=== PATIENT | female | born 1935 | race Caucasian/White ===

== ENCOUNTER 2022-09-03 10:06 | Inpatient (IN) | payer MEDICARE, SELFPAY ==
[2022-09-03] VITALS (9 sets, daily range): BP systolic 124–186; BP diastolic 53–86; PULSE 87–111; RESP 17–40; TEMP 36.2–37; O2SAT 94–97; BMI 21.9; BMI 24.0
--- NOTE | ~2022-09-03 | XR_ITS ---
EXAMINATION: XR CHEST CLINICAL INFORMATION: Difficulty breathing COMPARISON: None TECHNIQUE: Frontal view of the chest was obtained. FINDINGS: Heart size is normal. The trachea is deviated to the right by superior mediastinal mass - in the differential would be an enlarged substernal thyroid along with other causes. Small bilateral pleural effusions are seen. There is mild upper zone redistribution suggesting elevated left ventricular end-diastolic pressure is. Mild peribronchial thickening. Bibasilar atelectasis is present. XR/XR chest 1V IMPRESSION: 1. Question of mild pulmonary vascular congestion with upper zone redistribution and small bilateral pleural effusions 2. Bibasilar atelectasis. 3. Tracheal deviation to the right as described above.
--- NOTE | ~2022-09-03 | CT_ITS ---
EXAMINATION: CT ANGIOGRAM OF THE CHEST WITH AND WITHOUT CONTRAST (CT PULMONARY ANGIOGRAM FOR PE) CLINICAL INFORMATION: Reason for Exam sob COMPARISON: Chest radiograph earlier today TECHNIQUE: Prior to contrast administration, noncontrast localization images were obtained. Subsequently, multidetector volumetric imaging was performed from the thoracic inlet to below the diaphragms following the administration of 65 mL Omnipaque 350 intravenous contrast. No contrast reaction reported Sagittal, coronal, and MIP oblique sagittal reformatted images were obtained on the CT workstation, uploaded to PACS, and reviewed. This CT examination was performed using dose optimization techniques as appropriate, variously including the following: *Automated exposure control *Adjustment of mA and/or kV according to patient size (this includes techniques or standardized protocols for targeted exams where dose is matched to indication/reason for exam; i.e. extremities or head) *Use of iterative reconstruction technique Total exam dose-length product 192 mGy-cm FINDINGS: QUALITY OF STUDY/CONTRAST BOLUS: Satisfactory. PULMONARY ARTERIES: No central or segmental pulmonary emboli. THORACIC AORTA: No aneurysm or dissection. LUNGS AND PLEURA: There are moderate-sized pleural effusions seen bilaterally which appear larger on CT than on ultrasound. There is bibasilar compressive atelectasis seen. Mild dependent groundglass opacities seen in the left lung. No focal consolidations. No gross pulmonary edema. MEDIASTINUM: There is mild cardiac enlargement. There is a large superior mediastinal mass present that has calcifications consistent with substernal extension of a thyroid goiter down to the level of the aortic arch. Correlation with neck ultrasound is recommended as the entire process is not included on this exam. The trachea is deviated to the right by this mass. No evidence of septal bowing or right heart strain. CORONARY ARTERY CALCIFICATION: None visualized on this study. CHEST WALL/AXILLA: No axillary or internal mammary lymphadenopathy. OSSEOUS STRUCTURES: No acute or suspicious osseous abnormality. UPPER ABDOMEN: Unremarkable. No reflux of contrast into the hepatic veins to suggest elevated right heart pressures. CT/CT angio chest PE protocol IMPRESSION: 1. No evidence of pulmonary emboli. 2. Moderate-sized bilateral pleural effusions with associated compressive atelectasis. 3. 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 Thyroid ultrasound is recommended for further evaluation. VTE: negative.
--- NOTE | ~2022-09-03 | XR_ITS ---
EXAMINATION: XR CHEST CLINICAL INFORMATION: Status post right-sided thoracentesis with removal of 550 mL of fluid from the right chest COMPARISON: Chest radiograph 09/03/2022 TECHNIQUE: Frontal view of the chest was obtained. FINDINGS: There has been a decrease in size of the right pleural effusion status post thoracentesis. No pneumothorax is seen. A small left pleural effusion persists. Otherwise, there's been no change since the prior study. Again seen is the superior mediastinal mass deviating the trachea to the right. XR/XR chest 1V IMPRESSION: Decrease in size of right pleural effusion status post thoracentesis. No pneumothorax.
--- NOTE | ~2022-09-03 | US_ITS ---
EXAMINATION: ULTRASOUND-GUIDED RIGHT THORACENTESIS CLINICAL INFORMATION: Right pleural effusion with dyspnea. COMPARISON: CT scan of 09/03/2022. TECHNIQUE: Ultrasound-guided right thoracentesis. FINDINGS: Informed consent was obtained from the patient prior to the procedure. During this process, the procedure and potential alternatives were explained, along with the intended outcome and benefits. The risks of the procedure, as well as the risk of not doing the procedure, were discussed. The patient was given the opportunity to ask questions regarding the procedure and appeared competent to make medical decisions. A signed consent form which documents this discussion was placed in the medical record. Using sterile technique and ultrasound guidance a 5 Polish Yueh needle was directed into the right pleural space. A total of 550 mL of clear yellow fluid was removed. Samples were sent for laboratory studies. There was a small amount of residual fluid which appears to be complex and would not drain. Patient tolerated procedure without difficulty. US/US thoracentesis IMPRESSION: Right thoracentesis with removal of 550 mL of clear yellow fluid.
--- NOTE | 2022-09-03 10:22 | ECG_ITS ---
Test Reason : sob Blood Pressure : / mmHG Vent. Rate : 104 BPM Atrial Rate : 104 BPM P-R Int : 140 ms QRS Dur : 140 ms QT Int : 392 ms P-R-T Axes : 065 014 123 degrees QTc Int : 515 ms Sinus tachycardia with Premature atrial complexes Possible Left atrial enlargement Left bundle branch block Abnormal ECG When compared with ECG of 02-APR-2012 15:37, Premature atrial complexes are now Present Referred By: Generic ED Physician Electronically Signed By:JITENDRA DAVIS
[2022-09-03 11:22] LABS: MANUAL DIFF FLAG NO
[2022-09-03 11:39] LABS: Anion Gap 13 (12-20); Blood Urea Nitrogen 23 mg/dL (9-16); Calcium 8.8 mg/dL (8.4-10.2); Carbon Dioxide 22 mmol/L (22-29); Chloride 112 mmol/L (96-108); Creatinine Clr Calc Pharmacy 36.8; Estimated Glomerular Filt Rate > 60; Glucose Random 137 mg/dL (60-115); Potassium 3.9 mmol/L (3.3-5.1); Sodium 143 mmol/L (135-145)
[2022-09-03 11:45] LABS: Basophils Absolute Auto 0.1 X10*3/uL (0.0-0.2); Basophils Percent Auto 0.7 % (0-2); Eosinophils Percent Auto 0.1 % (0-4); Hematocrit 47.1 % (37.0-47.0); Hemoglobin 15.6 g/dl (12.0-16.0); Imm Gran Abs Auto 0.05 X10*3/uL (0.00-0.03); Imm Gran Pct Auto 0.4 % (0.0-0.4); Lymphocytes Absolute Auto 1.6 X10*3/uL (1.2-4.9); Lymphocytes Percent Auto 12.9 % (20-40); Mean Corpuscular HGB Conc 33.1 g/dl (31.0-35.0); Mean Corpuscular Hemoglobin 29.7 pg (27.0-33.0); Mean Corpuscular Volume 89.5 fL (80.0-98.0); Mean Platelet Volume 11.6 fL (9.4-12.3); Monocytes Absolute Auto 1.1 X10*3/uL (0.1-1.2); Monocytes Percent Auto 9.4 % (2-11); Neutrophils Absolute Auto 9.2 x10*3/uL (2.0-8.3); Neutrophils Percent Auto 76.5 % (45-73); Platelet Count 184 X10*3/uL (160-400); Red Blood Count 5.26 X10*6/uL (4.20-5.50); Red Cell Distribution Width 13.9 % (11.0-16.0)
[2022-09-03 11:46] LABS: Lactic Acid 2.2 mmol/L (0.5-2.0)
[2022-09-03 11:48] LABS: Troponin-I High Sensitivity 46.9 ng/L (<3.5-17.0)
--- NOTE | 2022-09-03 11:55 | ED.SOB ---
HPI - SOB/Dyspnea General Chief Complaint: Dyspnea Stated Complaint: Diff breathing Time Seen by Provider: 09/03/22 11:33 History of Present Illness HPI Narrative: Patient is an 87-year-old female with a history of coughing shortness of breath that is been ongoing for the last 2 weeks. Was started on antibiotic azithromycin approximately 1 week ago. Patient finished on Thursday. Positive coughing shortness of breath. There is no leg swelling. No history of congestive heart failure. No history of travel. No history of heart attacks. No history of diabetes. Only history of hypertension. Patient has been compliant with her medication. No fever no chills. No diaphoresis. Patient is from home. Related Data Home Medications Medication Instructions Recorded Confirmed losartan 50 mg-hydrochlorothiazide 1 tab PO DAILY 09/03/22 09/03/22 12.5 mg tablet Allergies Allergy/AdvReac Type Severity Reaction Status Date / Time No Known Allergies Allergy Unverified 03/15/20 16:19 Review of Systems Review of Systems: Positive coughing congestion upper respiratory symptoms shortness of breath Yes all other systems are reviewed and are negative PMFSH Past Medical History Attestation statement: The following information was validated with the patient. Social History Social History Alcohol intake: never Smoked in Last 30 Days: No Use of substances other than those prescribed or required for medical reasons: No Any prior treatment program specific to substance use: No Advance Directives: No Advance Directives Information Provided: Yes Physical Exam Vital Signs: Vital Signs: Last Vital Signs Temp 97.2 F 09/03/22 10:18 Pulse 93 09/03/22 14:28 Resp 37 H 09/03/22 14:28 BP 154/81 H 09/03/22 14:28 Pulse Ox 96 09/03/22 14:28 O2 Del Method 09/03/22 14:28 BMI result Body Mass Index 21.9 Const: Other: Appearance: Alert. Oriented X3. Short of breath Eyes: Pupils equal, round and reactive to light. ENT: Pharynx normal. Neck: Normal inspection. Neck supple. No lymph nodes noted. No crepitus CVS: Normal heart rate and rhythm. Pulses normal. Normal S1 and S2 Respiratory: Increased work of breathing. Shallow breathing. Increased respiratory rate. Abdomen: Soft and nontender. No rigidity. No distention. good BS x4 Skin: Skin warm and dry. Normal skin color. Normal skin turgor. Extremities: No lower extremity edema. Neurovascular intact to all extremities. No Lacerations. No Rash Neuro: Oriented X 3. No motor deficit. No sensory deficit. Moving all extermities. No slurred speech Medications Administered Discontinued Medications Generic Name Dose Route Start Last Admin Trade Name Willisq PRN Reason Stop Dose Admin Furosemide 40 mg 09/03/22 12:34 09/03/22 12:44 Furosemide 40 Mg/4 Ml Vial IVPUSH 09/03/22 12:35 40 mg ONCE ONE Administration Protocol Ceftriaxone Sodium 1 gm/ 50 mls @ 100 mls/hr 09/03/22 11:55 09/03/22 12:39 Sodium Chloride IV 09/03/22 12:24 100 mls/hr ONCE ONE Administration Iohexol 65 ml 09/03/22 12:20 09/03/22 12:21 Iohexol 350 Mg/Ml 100 Ml Infus..Btl IV 09/03/22 12:21 65 ml ONCE ONE Administration Nitroglycerin 0.5 inch 09/03/22 14:19 09/03/22 14:26 Nitroglycerin 2 % Oint 1 Gm Packet TRANSDERMA 09/03/22 14:20 0.5 inch ONCE ONE Administration Medical Decision Making Medical Decision Making [facility] Narrative: 1158am- Patient came in with shortness of breath coughing that is been ongoing for the last 2 weeks. Was seen by her primary physician. Was prescribed a Z-Aneudy. Patient finished on Thursday. Positive shortness of breath continue. My personal interpretation patient's x-ray showed some cephalization there is pleural effusion noted at the bilateral bases. Concern patient has congestive heart failure. In the setting of patient having elevated lactate 2.2. Will 1st get Rocephin on board. CTA of the chest to rule out the possibility of pulmonary emboli. Better delineation of the pleural effusion. Cultures are obtained. BNP was ordered for possible congestive heart failure. Elected not to give IV fluid at this time because of this concern. Will get EKG as well. Patient has no history of similar symptoms in the past. Shortness of breath is not getting any better. No history of cancer. No history of leg swelling. No history of blood clots in the past. No history of congestive heart failure. Positive history of hypertension. No travel history. 12: 30. Patient's BMP came back at over 2000. Consistent with congestive heart failure. A dose of Lasix was ordered. My interpretation of the patient's EKG shows a sinus pattern heart rate is approximately 100. There is a left bundle branch block pattern. HI is normal QT is normal there is no significant changes in ST patterns. Old EKG was compared. CTA is still pending. 2:[address] scan results just came back. CTA was negative for any acute evidence of pulmonary emboli. There was evidence for pleural effusion. Large goiter. A TSH was added. Patient's respiratory rate still somewhat elevated. Will admit patient for further evaluation. Patient's troponin was elevated at 47. BNP is 25 86. Question heart strain. A dose of Lasix was given earlier. Nitro given. Case will be discussed with hospitalist team for admission. Patient's repeat lactate was actually normal. There is no evidence for sepsis. Differential Diagnosis Differential Diagnoses: The differential diagnosis associated with the presentation includes Congestive heart failure, COPD, asthma, pulmonary emboli, pneumonia Admission/Observation Consideration of admission/observation: Escalation of care including admission/observation considered Consult Healthcare Provider Management of the patient was discussed with: Hospitalist Lab Data [facility] Lab Attestation statement: I reviewed the patient's lab results. 09/03/22 10:59 09/03/22 10:59 Labs: Lab Results 09/03/22 09/03/22 09/03/22 Range/Units 10:45 10:59 10:59 WBC 12.0 H (4.8-10.8) X10*3/uL RBC 5.26 (4.20-5.50) X10*6/uL Hgb 15.6 (12.0-16.0) g/dl Hct 47.1 H (37.0-47.0) % MCV 89.5 (80.0-98.0) fL MCH 29.7 (27.0-33.0) pg MCHC 33.1 (31.0-35.0) g/dl RDW 13.9 (11.0-16.0) % Plt Count 184 (160-400) X10*3/uL MPV 11.6 (9.4-12.3) fL Immature Gran % (Auto) 0.4 (0.0-0.4) % Neut % (Auto) 76.5 H (45-73) % Lymph % (Auto) 12.9 L (20-40) % [place] % (Auto) 9.4 (2-11) % Eos % (Auto) 0.1 (0-4) % Baso % (Auto) 0.7 (0-2) % Lymph # (Auto) 1.6 (1.2-4.9) X10*3/uL [place] # (Auto) 1.1 (0.1-1.2) X10*3/uL Eos # (Auto) 0.0 (0.0-0.4) X10*3/uL Baso # (Auto) 0.1 (0.0-0.2) X10*3/uL Abs Immat Gran (auto) 0.05 H (0.00-0.03) X10*3/uL Absolute Neuts (auto) 9.2 H (2.0-8.3) x10*3/uL Absolute Nucleated RBC 0.000 (0.0-0.012) X10*3/uL Nucleated RBC % (auto) 0.0 (0.0-0.2) /100WBC Sodium 143 (135-145) mmol/L Potassium 3.9 (3.3-5.1) mmol/L Chloride 112 H (96-108) mmol/L Carbon Dioxide 22 (22-29) mmol/L Anion Gap 13 (12-20) BUN 23 H (9-16) mg/dL Creatinine 0.85 (0.5-1.4) mg/dL Estim Creat Clear Calc 36.8 Estimated GFR > 60 Random Glucose 137 H (60-115) mg/dL Lactic Acid (0.5-2.0) mmol/L Lactic Acid F/U @ 2Hr (0.5-2.0) mmol/L Calcium 8.8 (8.4-10.2) mg/dL Troponin I High Sens (<3.5-17.0) ng/L B-Natriuretic Peptide (<100) pg/mL Urine Color Urine Appearance Urine pH (5.0-9.0) Ur Specific [place] (1.005-1.025) Urine Protein (Neg-Trace) mg/dL Urine Glucose (UA) (Negative) mg/dL Urine Ketones (Negative) mg/dL Urine Blood (Negative) Urine Nitrite (Negative) Ur Leukocyte Esterase (Negative) Urine RBC (0-2) /HPF Urine WBC (0-5) /HPF Ur Squamous Epith Cells (0-2) /HPF Urine Bacteria (None Seen) Hyaline Casts (0-2) /LPF Influenza Type A (PCR) NEGATIVE (Negative) Influenza Type B (PCR) NEGATIVE (Negative) RSV RNA Qual (PCR) NEGATIVE (Negative) SARS-CoV-2 RNA (RT-PCR) NEGATIVE (Negative) 09/03/22 09/03/22 09/03/22 Range/Units 10:59 10:59 11:01 WBC (4.8-10.8) X10*3/uL RBC (4.20-5.50) X10*6/uL Hgb (12.0-16.0) g/dl Hct (37.0-47.0) % MCV (80.0-98.0) fL MCH (27.0-33.0) pg MCHC (31.0-35.0) g/dl RDW (11.0-16.0) % Plt Count (160-400) X10*3/uL MPV (9.4-12.3) fL Immature Gran % (Auto) (0.0-0.4) % Neut % (Auto) (45-73) % Lymph % (Auto) (20-40) % [place] % (Auto) (2-11) % Eos % (Auto) (0-4) % Baso % (Auto) (0-2) % Lymph # (Auto) (1.2-4.9) X10*3/uL [place] # (Auto) (0.1-1.2) X10*3/uL Eos # (Auto) (0.0-0.4) X10*3/uL Baso # (Auto) (0.0-0.2) X10*3/uL Abs Immat Gran (auto) (0.00-0.03) X10*3/uL Absolute Neuts (auto) (2.0-8.3) x10*3/uL Absolute Nucleated RBC (0.0-0.012) X10*3/uL Nucleated RBC % (auto) (0.0-0.2) /100WBC Sodium (135-145) mmol/L Potassium (3.3-5.1) mmol/L Chloride (96-108) mmol/L Carbon Dioxide (22-29) mmol/L Anion Gap (12-20) BUN (9-16) mg/dL Creatinine (0.5-1.4) mg/dL Estim Creat Clear Calc Estimated GFR Random Glucose (60-115) mg/dL Lactic Acid 2.2 H* (0.5-2.0) mmol/L Lactic Acid F/U @ 2Hr (0.5-2.0) mmol/L Calcium (8.4-10.2) mg/dL Troponin I High Sens 46.9 H (<3.5-17.0) ng/L B-Natriuretic Peptide 2586 H (<100) pg/mL Urine Color Urine Appearance Urine pH (5.0-9.0) Ur Specific [place] (1.005-1.025) Urine Protein (Neg-Trace) mg/dL Urine Glucose (UA) (Negative) mg/dL Urine Ketones (Negative) mg/dL Urine Blood (Negative) Urine Nitrite (Negative) Ur Leukocyte Esterase (Negative) Urine RBC (0-2) /HPF Urine WBC (0-5) /HPF Ur Squamous Epith Cells (0-2) /HPF Urine Bacteria (None Seen) Hyaline Casts (0-2) /LPF Influenza Type A (PCR) (Negative) Influenza Type B (PCR) (Negative) RSV RNA Qual (PCR) (Negative) SARS-CoV-2 RNA (RT-PCR) (Negative) 09/03/22 09/03/22 Range/Units 13:09 13:46 WBC (4.8-10.8) X10*3/uL RBC (4.20-5.50) X10*6/uL Hgb (12.0-16.0) g/dl Hct (37.0-47.0) % MCV (80.0-98.0) fL MCH (27.0-33.0) pg MCHC (31.0-35.0) g/dl RDW (11.0-16.0) % Plt Count (160-400) X10*3/uL MPV (9.4-12.3) fL Immature Gran % (Auto) (0.0-0.4) % Neut % (Auto) (45-73) % Lymph % (Auto) (20-40) % [place] % (Auto) (2-11) % Eos % (Auto) (0-4) % Baso % (Auto) (0-2) % Lymph # (Auto) (1.2-4.9) X10*3/uL [place] # (Auto) (0.1-1.2) X10*3/uL Eos # (Auto) (0.0-0.4) X10*3/uL Baso # (Auto) (0.0-0.2) X10*3/uL Abs Immat Gran (auto) (0.00-0.03) X10*3/uL Absolute Neuts (auto) (2.0-8.3) x10*3/uL Absolute Nucleated RBC (0.0-0.012) X10*3/uL Nucleated RBC % (auto) (0.0-0.2) /100WBC Sodium (135-145) mmol/L Potassium (3.3-5.1) mmol/L Chloride (96-108) mmol/L Carbon Dioxide (22-29) mmol/L Anion Gap (12-20) BUN (9-16) mg/dL Creatinine (0.5-1.4) mg/dL Estim Creat Clear Calc Estimated GFR Random Glucose (60-115) mg/dL Lactic Acid (0.5-2.0) mmol/L Lactic Acid F/U @ 2Hr 1.2 (0.5-2.0) mmol/L Calcium (8.4-10.2) mg/dL Troponin I High Sens (<3.5-17.0) ng/L B-Natriuretic Peptide (<100) pg/mL Urine Color Yellow Urine Appearance Clear Urine pH 5.5 (5.0-9.0) Ur Specific [place] >= 1.030 H (1.005-1.025) Urine Protein 30 (1+) H (Neg-Trace) mg/dL Urine Glucose (UA) Negative (Negative) mg/dL Urine Ketones Trace (Negative) mg/dL Urine Blood Negative (Negative) Urine Nitrite Negative (Negative) Ur Leukocyte Esterase Negative (Negative) Urine RBC 0-2 (0-2) /HPF Urine WBC 0-5 (0-5) /HPF Ur Squamous Epith Cells 0-2 (0-2) /HPF Urine Bacteria None Seen (None Seen) Hyaline Casts 0-2 (0-2) /LPF Influenza Type A (PCR) (Negative) Influenza Type B (PCR) (Negative) RSV RNA Qual (PCR) (Negative) SARS-CoV-2 RNA (RT-PCR) (Negative) Independent Historian Clinical information obtained from an independent historian. History obtained from or confirmed by: Parent External Record Review External record reviewed: Inpatient record Critical Care Time Critical Care Time Critical Care Time: Yes Total Critical Care Time: 40 Attestation: I have personally provided 40 minutes of critical care time exclusive of time spent on separately billable procedures. Time includes review of lab data, radiology results, discussion with consultants, and monitoring for potential decompensation. Interventions were performed as documented above Discharge Plan Discharge Clinical Impression: Congestive cardiac failure Patient Disposition: Admitted As Inpatient
[2022-09-03 12:01] LABS: Influenza A PCR NEGATIVE (Negative); Influenza B PCR NEGATIVE (Negative); Resp Syncy Virus RNA Qual PCR NEGATIVE (Negative); SARS COV2 PCR INHOUSE NEGATIVE (Negative)
[2022-09-03] MEDS: iohexoL 350 MG/ML 100 ML INFUS..BTL 65 ML IV (12:21)
[2022-09-03 12:30] LABS: B Type Natriuretic Peptide 2586 pg/mL (<100)
[2022-09-03] MEDS: cefTRIAXone sodium 1 GM in 0.9 % Sodium Chloride 50 ML IV (12:39)
[2022-09-03] MEDS: Furosemide 40 MG/4 ML VIAL IVPUSH ×2 (12:44→18:03)
[2022-09-03 13:17] LABS: Appearance Urine Clear; Color Urine Yellow; Glucose Urine UA Negative (Negative); Leukocyte Esterase Urine Negative (Negative); Nitrite Urine Negative (Negative); PH 5.5 (5.0-9.0); Specific Gravity - Urine >= 1.030 (1.005-1.025); UMIC TRIGGER UACC YES; Urine Blood Negative (Negative); Urine Ketones Trace mg/dL (Negative); Urine Protein 30 (1+) mg/dL (Neg-Trace)
[2022-09-03 13:19] LABS: Bacteria Urine None Seen (None Seen); Hyaline Casts Urine 0-2 /LPF (0-2); RBC Urine 0-2 /HPF (0-2); Squamous Epithelial Cell Urine 0-2 /HPF (0-2); WBC Urine 0-5 /HPF (0-5)
[2022-09-03 13:20] LABS: Reflex Lactate? Lactic Acid Added
--- NOTE | 2022-09-03 13:25 | PHA.MEDREC ---
Pharmacy Consult ? Medication Reconciliation Pharmacy has completed the medication reconciliation.
[2022-09-03 14:06] LABS: ~Lactic Acid-LAB USE ONLY 1.2 mmol/L (0.5-2.0)
[2022-09-03] MEDS: Nitroglycerin 2 % Oint 1 GM Packet 0.5 INCH TRANSDERMA (14:26)
[2022-09-03 14:49] LABS: Thyroid Stimulating Hormone 1.38 uIU/mL (0.32-4.0)
--- NOTE | 2022-09-03 15:15 | P.HPHOSP_ITS ---
History of Present Illness Date of Service: 09/03/22 Chief Complaint: SOB An 87 years old lady with PMH of HTN who presents to the [facility] with 1 week history of SOB and dyspnea on exertion. The lady reports that she is usually active and walks around house, goes up and down stairs with good stability. for at least 1 week now she noticed more SOB with exertion and feeling od dyspnea with regular activities. Denies any chest pain, palpitations, headache, change in bowel habit, nausea, vomiting or urinary symptoms. In ED found to have bilateral pleural effusion with elevated BNP suggestive of new onset heart failure. admitted for further eval and rec. Review of Systems Review of Systems: No fever, chills or weakness No chest pain, palpitation exertional shortness of breath with dyspnea No abdominal pain, nausea or vomiting No urinary symptoms No any rash or wounds [facility] Medical History (Updated 09/03/22 @ 15:29 by Mónica Woods MD) HTN (hypertension) Social History Alcohol intake: never Smoked in Last 30 Days: No Use of substances other than those prescribed or required for medical reasons: No Any prior treatment program specific to substance use: No Advance Directives: No Advance Directives Information Provided: Yes Meds Allergies Allergy/AdvReac Type Severity Reaction Status Date / Time No Known Allergies Allergy Unverified 03/15/20 16:19 Active Medications: Current Medications Pharmacy Consult (Consult Rx Perform Med Rec) 1 each MISCELLANE ONCE PRN PRN Reason: Consult order Home Medications Medication Instructions Recorded Confirmed Last Taken Type losartan 50 mg-hydrochlorothiazide 1 tab PO DAILY 09/03/22 09/03/22 Unknown History 12.5 mg tablet Physical Exam Vital Signs and Narrative: Vital Signs: Last Vital Signs Temp 97.2 F 09/03/22 10:18 Pulse 93 09/03/22 14:28 Resp 37 H 09/03/22 14:28 BP 154/81 H 09/03/22 14:28 Pulse Ox 96 09/03/22 14:28 O2 Del Method 09/03/22 14:28 BMI result Body Mass Index 21.9 Const: Other: Constitutional : Awake, interactive, not in distress Neck : Normal inspection, Supple Cardiovascular : RRR, no JVP, trace lower extremity edema Respiratory : decrease bilateral air entry, basal fine crackles, no wheezes or rhonchi Gastrointestinal: soft, lax, Normal bowel sounds, Non tender Skin : Warm, Dry Neurological : Alert & oriented x3, No focal deficit Results Labs 09/03/22 10:59 09/03/22 10:59 Labs: Laboratory Results - last 24 hr 09/03/22 09/03/22 09/03/22 10:45 10:59 10:59 MCV 89.5 MCH 29.7 MCHC 33.1 RDW 13.9 Plt Count 184 MPV 11.6 Immature Gran % (Auto) 0.4 Neut % (Auto) 76.5 H Lymph % (Auto) 12.9 L [place] % (Auto) 9.4 Eos % (Auto) 0.1 Baso % (Auto) 0.7 Lymph # (Auto) 1.6 [place] # (Auto) 1.1 Eos # (Auto) 0.0 Baso # (Auto) 0.1 Abs Immat Gran (auto) 0.05 H Absolute Neuts (auto) 9.2 H Absolute Nucleated RBC 0.000 Nucleated RBC % (auto) 0.0 Anion Gap 13 Estim Creat Clear Calc 36.8 Estimated GFR > 60 Random Glucose 137 H Lactic Acid Lactic Acid F/U @ 2Hr Calcium 8.8 Troponin I High Sens B-Natriuretic Peptide TSH 1.38 Urine Color Urine Appearance Urine pH Ur Specific [place] Urine Protein Urine Glucose (UA) Urine Ketones Urine Blood Urine Nitrite Ur Leukocyte Esterase Urine RBC Urine WBC Ur Squamous Epith Cells Urine Bacteria Hyaline Casts Influenza Type A (PCR) NEGATIVE Influenza Type B (PCR) NEGATIVE RSV RNA Qual (PCR) NEGATIVE SARS-CoV-2 RNA (RT-PCR) NEGATIVE 09/03/22 09/03/22 09/03/22 10:59 10:59 11:01 MCV MCH MCHC RDW Plt Count MPV Immature Gran % (Auto) Neut % (Auto) Lymph % (Auto) [place] % (Auto) Eos % (Auto) Baso % (Auto) Lymph # (Auto) [place] # (Auto) Eos # (Auto) Baso # (Auto) Abs Immat Gran (auto) Absolute Neuts (auto) Absolute Nucleated RBC Nucleated RBC % (auto) Anion Gap Estim Creat Clear Calc Estimated GFR Random Glucose Lactic Acid 2.2 H* Lactic Acid F/U @ 2Hr Calcium Troponin I High Sens 46.9 H B-Natriuretic Peptide 2586 H TSH Urine Color Urine Appearance Urine pH Ur Specific [place] Urine Protein Urine Glucose (UA) Urine Ketones Urine Blood Urine Nitrite Ur Leukocyte Esterase Urine RBC Urine WBC Ur Squamous Epith Cells Urine Bacteria Hyaline Casts Influenza Type A (PCR) Influenza Type B (PCR) RSV RNA Qual (PCR) SARS-CoV-2 RNA (RT-PCR) 09/03/22 09/03/22 13:09 13:46 MCV MCH MCHC RDW Plt Count MPV Immature Gran % (Auto) Neut % (Auto) Lymph % (Auto) [place] % (Auto) Eos % (Auto) Baso % (Auto) Lymph # (Auto) [place] # (Auto) Eos # (Auto) Baso # (Auto) Abs Immat Gran (auto) Absolute Neuts (auto) Absolute Nucleated RBC Nucleated RBC % (auto) Anion Gap Estim Creat Clear Calc Estimated GFR Random Glucose Lactic Acid Lactic Acid F/U @ 2Hr 1.2 Calcium Troponin I High Sens B-Natriuretic Peptide TSH Urine Color Yellow Urine Appearance Clear Urine pH 5.5 Ur Specific [place] >= 1.030 H Urine Protein 30 (1+) H Urine Glucose (UA) Negative Urine Ketones Trace Urine Blood Negative Urine Nitrite Negative Ur Leukocyte Esterase Negative Urine RBC 0-2 Urine WBC 0-5 Ur Squamous Epith Cells 0-2 Urine Bacteria None Seen Hyaline Casts 0-2 Influenza Type A (PCR) Influenza Type B (PCR) RSV RNA Qual (PCR) SARS-CoV-2 RNA (RT-PCR) Imaging Radiologist's Impressions: Impressions Chest X-Ray 09/03/22 11:22 IMPRESSION: 1. Question of mild pulmonary vascular congestion with upper zone redistribution and small bilateral pleural effusions 2. Bibasilar atelectasis. 3. Tracheal deviation to the right as described above. Chest CTA 09/03/22 12:29 IMPRESSION: 1. No evidence of pulmonary emboli. 2. Moderate-sized bilateral pleural effusions with associated compressive atelectasis. 3. 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 Thyroid ultrasound is recommended for further evaluation. VTE: negative. Assessment and Plan (1) Congestive cardiac failure: Status: Acute (2) Pleural effusion: Status: Acute Plan An 87 years old lady with PMH of HTN who presents to the [facility] with 1 week history of SOB and dyspnea on exertion. Bilateral pleural effusion 2/2 Acute heart failure exacerbation Check Echo start Lasix To do Thoracentesis Cardiology eval O2 supplement Collapsed lungs no sings of infection Incentive spirometry Thyroid nodule To be followed as OP HTN hold home meds DCT PPx Lovenox The patient will likely needs 2 overnight hospital stay for eval and tx of heart failure exacerbation Time Spent With Patient Time: Total time managing care of this patient today ____ minutes. Quality Stroke Does the patient have a stroke diagnosis?: No VTE Prior VTE?: No VTE Risk Level:: Medical - moderate - high VTE Device Contraindication: Treatment Not Indicated VTE Drug Contraindication: N/A - Med Ordered
[2022-09-03] MEDS: 0.9 % Sodium Chloride Flush 3 ML SYRINGE IVFLUSH (18:03)
[2022-09-03] MEDS: Enoxaparin Sodium 40 MG/0.4 ML SYRINGE SUBCUT (18:03)
[2022-09-03] MEDS: Benzonatate 100 MG CAPSULE PO (22:20)
[2022-09-04] VITALS (7 sets, daily range): BP systolic 100–151; BP diastolic 55–81; PULSE 80–99; RESP 17–20; TEMP 36.7–37.2; O2SAT 92–97
--- NOTE | 2022-09-04 07:00 | CA_ITS ---
Transthoracic Echocardiogram Patient (Last, First, Middle): Pearl Maldonado, Gender: Female Date of : 1935 Age: 87 Procedure Date: 09/04/2022 Procedure Type: Transthoracic Echocardiogram [place] [facility] [place] Height: 157. cm Weight: 54.43 kg BSA: 1.54 m2 Heart Rate: 85 bpm BP: 154 / 81 mmHg Nut Sifter: RAMONE Referring MD: Mónica Woods MD Symptoms: new onset heart failure Study Quality: Fair/Contrast ECG Rhythm: Sinus Conclusions: - The left ventricular systolic function is severely decreased. The visually estimated ejection fraction is between 15-20%. - No obvious valvular pathology seen on this study. Findings Procedure Information Contrast agent, definity, is being given per protocol without apparent complications. Left Ventricle Normal left ventricular cavity size. There is normal left ventricular wall thickness. The left ventricular systolic function is severely decreased. The visually estimated ejection fraction is between 15-20%. There is severe global hypokinesis. There is paradoxical septal motion consistent with a left bundle branch block. E/E prime ratio is >15, consistent with elevated filling pressures. Evidence suggests grade I (mild) diastolic dysfunction. Right Ventricle Normal right ventricular cavity size and systolic function. Atria Both atria are normal in size. Aortic Valve There is a normal trileaflet aortic valve. There is no aortic valve stenosis. There is trace (trivial) aortic valve regurgitation. Mitral Valve There is mild anterior and posterior mitral leaflet thickening. There is mild mitral valve regurgitation. There is no mitral valve stenosis. Pulmonic Valve The pulmonic valve is likely normal. Tricuspid Valve Normal tricuspid valve structure. There is trace tricuspid valve regurgitation. Tricuspid regurgitation envelope is inadequate for calculation of right ventricular systolic pressure. Great Vessels The asc aorta is normal in size. Venous The inferior vena cava is normal in size and collapses greater than 50% with inspiration. Pericardium/Pleural There is no evidence of pericardial effusion. There is a large left sided pleural effusion. Prior Study Comparison No prior study available for comparison. Recommendations, Care & Conclusions No obvious valvular pathology seen on this study. Measurements 2D Linear Measurements IVSd: 0.98 0.6-0.9/0.6-1.0 cm LVIDd: 5.24 3.9-5.3/4.2-5.9 cm LVIDd Index: 3.40 2.4-3.2/2.2-3.1 cm/m2 LVIDs: 4.62 2.0-3.6 cm LVPWd: 1.25 0.7-1.1 cm LA Diam: 2.90 2.7-3.8/3.0-4.0 cm LAIDs Index: 1.88 1.5-2.3 cm/m2 LV Mass: 283.87 67-162/88-224 g LV Mass Index: 184.33 43-95/49-115 g/m2 LVOT Diam: 1.80 3.0+(-)1.3 cm 2D Systolic Function EF 4C: 31.30 >55% EF 2C: 34.90 >55% EF BiP: 29.10 >55% Mitral Valve MV Pk E: 0.64 MV PK A: 1.18 MV Decel Time: 327.00 E/A: 0.50 E'Lateral: 5.19 E'Medial: 3.16 E/E' Med: 20.20 E/E' Lat: 12.30 PHT: 96.00 MVA PHT: 2.29 Decel [place]: 1.95 Aortic Valve AoV Pk Ayush: 1.38 AoV Mn Ayush: 1.05 AoV VTI: 0.28 AoV Pk Grad: 8.00 Aov Mn Grad: 5.00 GAVIN Cont.VTI: 2.12 LVOT LVOT Pk Ayush: 1.33 LVOT Mn Ayush: 0.88 LVOT VTI: 0.24 LVOT Pk Grad: 7.00 LVOT Mn Grad: 4.00 LVOT Diam: 1.80 LVOT Area: 2.54 Diastolic Function MV Pk E: 0.64 MV Pk A: 1.18 E/A: 0.50 E'Medial: 3.16 E/E' Med: 20.20 E' Laterial: 5.19 E/E' Lat: 12.30 Right Ventricle TAPSE (mm): 17.50 TVS' Ayush: 9.41 Tricuspid Valve RA Press: 3.00 Great Vessels Aorta Sinus of Valsalva: 2.80 2.0-3.5 cm Ao Asc: 3.00 2.1-3.4 cm Pulmonary Valve PV Pk Ayush: 1.15 Peak PV Grad: 5.00 Updated in Other Vendor System with Status of Final Luis Carranza MD electronically signed on 09/04/2022 12:53:48 PM with status of Final
[2022-09-04 07:01] LABS: Hematocrit 42.2 % (37.0-47.0); Hemoglobin 14.2 g/dl (12.0-16.0); Mean Corpuscular HGB Conc 33.6 g/dl (31.0-35.0); Mean Corpuscular Hemoglobin 29.7 pg (27.0-33.0); Mean Corpuscular Volume 88.3 fL (80.0-98.0); Mean Platelet Volume 10.4 fL (9.4-12.3); Platelet Count 203 X10*3/uL (160-400); Red Blood Count 4.78 X10*6/uL (4.20-5.50); Red Cell Distribution Width 13.8 % (11.0-16.0)
[2022-09-04 07:17] LABS: Anion Gap 12 (12-20); Blood Urea Nitrogen 16 mg/dL (9-16); Calcium 8.4 mg/dL (8.4-10.2); Carbon Dioxide 30 mmol/L (22-29); Chloride 107 mmol/L (96-108); Creatinine Clr Calc Pharmacy 36.4; Estimated Glomerular Filt Rate > 60; Glucose Random 111 mg/dL (60-115); Lactate Dehydrogenase 238 U/L (122-220); Potassium 3.5 mmol/L (3.3-5.1); Sodium 145 mmol/L (135-145); Total Protein 5.5 g/dL (6.5-8.0)
[2022-09-04] MEDS: Benzonatate 100 MG CAPSULE PO (07:47)
[2022-09-04] MEDS: Furosemide 40 MG/4 ML VIAL IVPUSH ×2 (07:48→17:13)
[2022-09-04 08:19] LABS: INTERNATIONAL NORM RATIO 1.2 (0.9-1.1); Prothrombin Time 14.1 SEC (10.0-13.1)
[2022-09-04 08:22] LABS: Partial Thromboplastin Time 30.6 SEC (26.0-36.4)
[2022-09-04 08:40] LABS: B Type Natriuretic Peptide 981 pg/mL (<100)
--- NOTE | 2022-09-04 08:48 | MHC.CM.PN ---
CM met with Patient at bedside and addressed IMM with her, providing Patient with the original and placing a copy on the chart. Patient lives alone in a house and she required no services nor DME CENTRAL SERVICES TECH. Home self care VS new VNA is the tentative plan and CM has initiated and will follow for dc planning. Patient has received [email or web address] vax x5 and her new PCP is from Dr. Renzo Taylor's practice (she could not recall the name).
--- NOTE | 2022-09-04 10:25 | PM.CNCAR ---
History of Present Illness History of Present Illness Date of Service: 09/04/22 Chief complaint: Sob Narrative: This is a cardiology consultation regarding shortness of breath. Patient states that she is generally quite healthy and does not have any known cardiac issues or in fact anything else of CTs nature. For the last several days, she has been noticing shortness of breath and that led to the hospitalization. Denies any other complaints like angina or palpitations or leg swelling or anything else. Initial evaluation was suspicious for heart failure and hence she has been admitted. Cardiology has been consulted. Review of Systems Review of Systems: Yes all other systems are reviewed and are negative Constitutional: Constitutional: Reports as per HPI and Reports no additional constitutional complaints Eyes: Eyes: Reports as per HPI and Denies no additional eye complaints ENT: Denies system reviewed and no additional complaints, except as documented and Reports as per HPI Cardiovascular: Cardiovascular: Reports as per HPI, Reports no additional cardiovascular complaints, Denies acrocyanosis, Denies cool extremities, Denies chest pain, Denies leg edema, Denies lightheadedness, Denies palpitations and Reports dyspnea Respiratory: Respiratory: Reports as per HPI, Denies no additional respiratory complaints and Reports dyspnea Gastrointestinal: Gastrointestinal: Reports as per HPI and Denies no additional gastrointestinal complaints Genitourinary: Genitourinary: Reports as per HPI Musculoskeletal: Musculoskeletal: Reports no additional musculoskeletal complaints and Reports as per HPI Integumentary/Breasts: Skin/Breast: Reports system reviewed and no additional complaints, except as docu Neurologic: Reports system reviewed and no additional complaints, except as documented and Reports as per HPI Psychiatric: Psychiatric: Reports no additional psychiatric complaints and Reports as per HPI Endocrine: Endocrine: Reports no additional endocrine complaints, Reports as per HPI and Denies palpitations Hematologic/Lymphatic: Hematologic/Lymphatic: Reports no additional hematologic/lymphatic complaints and Reports as per HPI Allergic/Immunologic: Allergic/Immunologic: Reports no additional allergic/immunologic complaints and Reports as per HPI [facility] Past Medical History Medical History (Updated 09/04/22 @ 10:29 by Luis Carranza MD) HTN (hypertension) Family History Family History Father No problems noted. Mother No problems noted. Social History Social History Household Members: None Housing: House Do you presently have visiting nurse or other home services: No Alcohol intake: never Patient Tobacco Use Status: Never used Tobacco Smoked in Last 30 Days: No e-Cigarette/Vaping Use: Never Used Second Hand Smoke Exposure: No Use of substances other than those prescribed or required for medical reasons: No Currently Displaying Signs/Symptoms of Drug Intoxication Withdrawal: No Any prior treatment program specific to substance use: No Have you been hit, kicked, punched, or otherwise hurt by someone within the past year? If so, by whom?: No Do you feel safe in your current relationship?: Yes Is there a partner from a previous relationship who is making you feel unsafe now?: No Are you made to feel afraid or neglected: No Advance Directives: No Advance Directives Information Provided: Yes Do you have thoughts of harming others: None Do you have a plan to hurt others: No Plan Recently lost weight without trying: Yes How much weight loss: 2-13 pounds Eating poorly because of decreased appetite: Yes Nutrition screen score: 4 Nutrition Risks: No Nutritional Risk Patient : No : No Poor oral hygiene: No service: No Current occupational status: retired Exec Allergies Allergy/AdvReac Type Severity Reaction Status Date / Time No Known Allergies Allergy Unverified 03/15/20 16:19 Active Medications: Current Medications Acetaminophen (Acetaminophen 325 Mg Tablet) 650 mg PO Q6H PRN PRN Reason: Pain, Mild (Pain Scale 1-3) Benzonatate (Benzonatate 100 Mg Capsule) 100 mg PO TID PRN PRN Reason: Cough Last Admin: 09/04/22 07:47 Dose: 100 mg Enoxaparin Sodium (Enoxaparin Sodium 40 Mg/0.4 Ml Syringe) 40 mg SUBCUT Q24H SANDRA Last Admin: 09/03/22 18:03 Dose: 40 mg Furosemide (Furosemide 40 Mg/4 Ml Vial) 40 mg IVPUSH BID@0900,1800 SANDRA; Protocol Last Admin: 09/04/22 07:48 Dose: 40 mg Guaifenesin (Guaifenesin La 600 Mg Tab.Er.12h) 600 mg PO BID SANDRA Guaifenesin (Guaifenesin 200 Mg/10 Ml 10 Ml Liquid) 10 ml PO Q4H PRN PRN Reason: Cough Ondansetron HCl (Ondansetron Hcl 4 Mg/2 Ml Vial) 4 mg IVPUSH Q8H PRN PRN Reason: Nausea and Vomiting Pharmacy Consult (Consult Rx Perform Med Rec) 1 each MISCELLANE ONCE PRN PRN Reason: Consult order Sodium Chloride (0.9 % Sodium Chloride Flush 3 Ml Syringe) 3 ml IVFLUSH QSHIFT SANDRA Last Admin: 09/04/22 07:07 Dose: Not Given Home Medications Medication Instructions Recorded Confirmed Last Taken Type losartan 50 mg-hydrochlorothiazide 1 tab PO DAILY 09/03/22 09/03/22 Unknown History 12.5 mg tablet Physical Exam Vital Signs: Vital Signs: Last Vital Signs Temp 98.3 F 09/04/22 07:32 Pulse 84 09/04/22 07:32 Resp 18 09/04/22 07:32 BP 140/81 H 09/04/22 07:32 Pulse Ox 97 09/04/22 07:32 O2 Del Method 09/04/22 07:32 O2 Flow Rate 2 09/04/22 07:32 BMI result Body Mass Index 24.0 Const: General: comfortable and no acute distress Orientation/consciousness: patient oriented x3 HEENT: Other: Unremarkable Head: Yes normal to inspection Neck: Neck: Yes normal visual inspection Chest: Chest palpation & inspection: normal inspection of the chest Resp: Auscultation: clear to auscultation bilaterally Cardio: Palpation: normal PMI Heart sounds: S1 normal heart sound present, S2 normal heart sound present, no gallops, no murmurs and no rubs GI: Palpation (GI): Soft to palpation Back/Spine/Pelvis: Other: unremarkable Skin: General skin exam: no rashes or lesions noted Neuro: General: patient oriented x3 Extrem: General: Yes normal to inspection Psych: Mental Status: mental status grossly normal Objective Labs and Meds 09/04/22 06:52 09/04/22 06:52 Lab results: Laboratory Results - last 24 hr 09/03/22 09/03/22 09/03/22 10:45 10:59 10:59 WBC 12.0 H RBC 5.26 Hgb 15.6 Hct 47.1 H MCV 89.5 MCH 29.7 MCHC 33.1 RDW 13.9 Plt Count 184 MPV 11.6 Immature Gran % (Auto) 0.4 Neut % (Auto) 76.5 H Lymph % (Auto) 12.9 L [place] % (Auto) 9.4 Eos % (Auto) 0.1 Baso % (Auto) 0.7 Lymph # (Auto) 1.6 [place] # (Auto) 1.1 Eos # (Auto) 0.0 Baso # (Auto) 0.1 Abs Immat Gran (auto) 0.05 H Absolute Neuts (auto) 9.2 H Absolute Nucleated RBC 0.000 Nucleated RBC % (auto) 0.0 PT INR APTT Sodium 143 Potassium 3.9 Chloride 112 H Carbon Dioxide 22 Anion Gap 13 BUN 23 H Creatinine 0.85 Estim Creat Clear Calc 36.8 Estimated GFR > 60 Random Glucose 137 H Lactic Acid Lactic Acid F/U @ 2Hr Calcium 8.8 Lactate Dehydrogenase Troponin I High Sens B-Natriuretic Peptide Total Protein TSH 1.38 Urine Color Urine Appearance Urine pH Ur Specific [place] Urine Protein Urine Glucose (UA) Urine Ketones Urine Blood Urine Nitrite Ur Leukocyte Esterase Urine RBC Urine WBC Ur Squamous Epith Cells Urine Bacteria Hyaline Casts Influenza Type A (PCR) NEGATIVE Influenza Type B (PCR) NEGATIVE RSV RNA Qual (PCR) NEGATIVE SARS-CoV-2 RNA (RT-PCR) NEGATIVE 09/03/22 09/03/22 09/03/22 10:59 10:59 11:01 WBC RBC Hgb Hct MCV MCH MCHC RDW Plt Count MPV Immature Gran % (Auto) Neut % (Auto) Lymph % (Auto) [place] % (Auto) Eos % (Auto) Baso % (Auto) Lymph # (Auto) [place] # (Auto) Eos # (Auto) Baso # (Auto) Abs Immat Gran (auto) Absolute Neuts (auto) Absolute Nucleated RBC Nucleated RBC % (auto) PT INR APTT Sodium Potassium Chloride Carbon Dioxide Anion Gap BUN Creatinine Estim Creat Clear Calc Estimated GFR Random Glucose Lactic Acid 2.2 H* Lactic Acid F/U @ 2Hr Calcium Lactate Dehydrogenase Troponin I High Sens 46.9 H B-Natriuretic Peptide 2586 H Total Protein TSH Urine Color Urine Appearance Urine pH Ur Specific [place] Urine Protein Urine Glucose (UA) Urine Ketones Urine Blood Urine Nitrite Ur Leukocyte Esterase Urine RBC Urine WBC Ur Squamous Epith Cells Urine Bacteria Hyaline Casts Influenza Type A (PCR) Influenza Type B (PCR) RSV RNA Qual (PCR) SARS-CoV-2 RNA (RT-PCR) 09/03/22 09/03/22 09/04/22 13:09 13:46 06:52 WBC RBC Hgb Hct MCV MCH MCHC RDW Plt Count MPV Immature Gran % (Auto) Neut % (Auto) Lymph % (Auto) [place] % (Auto) Eos % (Auto) Baso % (Auto) Lymph # (Auto) [place] # (Auto) Eos # (Auto) Baso # (Auto) Abs Immat Gran (auto) Absolute Neuts (auto) Absolute Nucleated RBC Nucleated RBC % (auto) PT INR APTT Sodium Potassium Chloride Carbon Dioxide Anion Gap BUN Creatinine Estim Creat Clear Calc Estimated GFR Random Glucose Lactic Acid Lactic Acid F/U @ 2Hr 1.2 Calcium Lactate Dehydrogenase Troponin I High Sens B-Natriuretic Peptide 981 H Total Protein TSH Urine Color Yellow Urine Appearance Clear Urine pH 5.5 Ur Specific [place] >= 1.030 H Urine Protein 30 (1+) H Urine Glucose (UA) Negative Urine Ketones Trace Urine Blood Negative Urine Nitrite Negative Ur Leukocyte Esterase Negative Urine RBC 0-2 Urine WBC 0-5 Ur Squamous Epith Cells 0-2 Urine Bacteria None Seen Hyaline Casts 0-2 Influenza Type A (PCR) Influenza Type B (PCR) RSV RNA Qual (PCR) SARS-CoV-2 RNA (RT-PCR) 09/04/22 09/04/22 09/04/22 06:52 06:52 07:41 WBC 8.0 RBC 4.78 Hgb 14.2 Hct 42.2 MCV 88.3 MCH 29.7 MCHC 33.6 RDW 13.8 Plt Count 203 MPV 10.4 Immature Gran % (Auto) Neut % (Auto) Lymph % (Auto) [place] % (Auto) Eos % (Auto) Baso % (Auto) Lymph # (Auto) [place] # (Auto) Eos # (Auto) Baso # (Auto) Abs Immat Gran (auto) Absolute Neuts (auto) Absolute Nucleated RBC 0.000 Nucleated RBC % (auto) 0.0 PT 14.1 H INR 1.2 H APTT 30.6 Sodium 145 Potassium 3.5 Chloride 107 Carbon Dioxide 30 H Anion Gap 12 BUN 16 Creatinine 0.86 Estim Creat Clear Calc 36.4 Estimated GFR > 60 Random Glucose 111 Lactic Acid Lactic Acid F/U @ 2Hr Calcium 8.4 Lactate Dehydrogenase 238 H Troponin I High Sens B-Natriuretic Peptide Total Protein 5.5 L TSH Urine Color Urine Appearance Urine pH Ur Specific [place] Urine Protein Urine Glucose (UA) Urine Ketones Urine Blood Urine Nitrite Ur Leukocyte Esterase Urine RBC Urine WBC Ur Squamous Epith Cells Urine Bacteria Hyaline Casts Influenza Type A (PCR) Influenza Type B (PCR) RSV RNA Qual (PCR) SARS-CoV-2 RNA (RT-PCR) ECG Interpretation: EKG with sinus tachycardia at 01:04/Min; premature atrial complexes; left bundle-branch block pattern. Imaging Radiologist's impression: Impressions Chest X-Ray 09/03/22 11:22 IMPRESSION: 1. Question of mild pulmonary vascular congestion with upper zone redistribution and small bilateral pleural effusions 2. Bibasilar atelectasis. 3. Tracheal deviation to the right as described above. Chest CTA 09/03/22 12:29 IMPRESSION: 1. No evidence of pulmonary emboli. 2. Moderate-sized bilateral pleural effusions with associated compressive atelectasis. 3. 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 Thyroid ultrasound is recommended for further evaluation. VTE: negative. Assessment and Plan (1) Acute CHF (congestive heart failure): Status: Acute (2) LBBB (left bundle branch block): Status: Acute (3) HTN (hypertension): Status: Acute Plan High sensitivity troponin 46.9. Cardiac BNP 2586 on arrival. Now it is 981. Chest CTA shows no pulmonary emboli. Moderate-sized bilateral pleural effusions/atelectasis. Mediastinal mass thought to be from thyroid goiter. Overall, findings suggestive of congestive heart failure. Could be related to hypertension/left bundle-branch block. Will need echocardiogram for further evaluation. Empiric diuretics. Meds to be optimized once we know the cardiac function. Time Spent With Patient Time: Total time managing care of this patient today 77 minutes. Procedures Date of Service Date of Service: 09/04/22
[2022-09-04] MEDS: guaiFENesin LA 600 MG TAB.ER.12H PO ×2 (10:37→20:16)
--- NOTE | 2022-09-04 10:59 | P.PNIM_ITS ---
Subjective Subjective Date of Service: 09/04/22 Interval History: Seen and evaluated this morning Feels much more comfortable with decreased respiratory distress On 2 L of oxygen No reported other overnight events Review of Systems No fever, chills or weakness No chest pain, palpitation exertional shortness of breath with dyspnea No abdominal pain, nausea or vomiting No urinary symptoms No any rash or wounds Physical Exam Vital Signs: Vital Signs: Last Vital Signs Temp 98.3 F 09/04/22 07:32 Pulse 84 09/04/22 07:32 Resp 18 09/04/22 07:32 BP 140/81 H 09/04/22 07:32 Pulse Ox 97 09/04/22 07:32 O2 Del Method 09/04/22 07:32 O2 Flow Rate 2 09/04/22 07:32 BMI result Body Mass Index 24.0 Const: Other: Constitutional : Awake, interactive, not in distress Neck : Normal inspection, Supple Cardiovascular : RRR, no JVP, trace lower extremity edema Respiratory : decrease bilateral air entry, basal fine crackles, no wheezes or rhonchi Gastrointestinal: soft, lax, Normal bowel sounds, Non tender Skin : Warm, Dry Neurological : Alert & oriented x3, No focal deficit Objective Data Active Medications Acetaminophen (Acetaminophen 325 Mg Tablet) 650 mg PO Q6H PRN PRN Reason: Pain, Mild (Pain Scale 1-3) Benzonatate (Benzonatate 100 Mg Capsule) 100 mg PO TID PRN PRN Reason: Cough Last Admin: 09/04/22 07:47 Dose: 100 mg Documented By: JEAN CARLOS Enoxaparin Sodium (Enoxaparin Sodium 40 Mg/0.4 Ml Syringe) 40 mg SUBCUT Q24H [facility] Last Admin: 09/03/22 18:03 Dose: 40 mg Documented By: CHRISTINA Furosemide (Furosemide 40 Mg/4 Ml Vial) 40 mg IVPUSH BID@0900,1800 [facility]; Protocol Last Admin: 09/04/22 07:48 Dose: 40 mg Documented By: JEAN CARLOS Guaifenesin (Guaifenesin La 600 Mg Tab.Er.12h) 600 mg PO BID [facility] Last Admin: 09/04/22 10:37 Dose: 600 mg Documented By: JEAN CARLOS Guaifenesin (Guaifenesin 200 Mg/10 Ml 10 Ml Liquid) 10 ml PO Q4H PRN PRN Reason: Cough Ondansetron HCl (Ondansetron Hcl 4 Mg/2 Ml Vial) 4 mg IVPUSH Q8H PRN PRN Reason: Nausea and Vomiting Pharmacy Consult (Consult Rx Perform Med Rec) 1 each MISCELLANE ONCE PRN PRN Reason: Consult order Sodium Chloride (0.9 % Sodium Chloride Flush 3 Ml Syringe) 3 ml IVFLUSH QSHIFT [facility] Last Admin: 09/04/22 07:07 Dose: Not Given Documented By: JEAN CARLOS Non-Admin Reason: See Note Labs 09/04/22 06:52 09/04/22 06:52 Labs: Laboratory Results - last 24 hr 09/03/22 09/03/22 09/03/22 10:45 10:59 10:59 MCV 89.5 MCH 29.7 MCHC 33.1 RDW 13.9 Plt Count 184 MPV 11.6 Immature Gran % (Auto) 0.4 Neut % (Auto) 76.5 H Lymph % (Auto) 12.9 L [place] % (Auto) 9.4 Eos % (Auto) 0.1 Baso % (Auto) 0.7 Lymph # (Auto) 1.6 [place] # (Auto) 1.1 Eos # (Auto) 0.0 Baso # (Auto) 0.1 Abs Immat Gran (auto) 0.05 H Absolute Neuts (auto) 9.2 H Absolute Nucleated RBC 0.000 Nucleated RBC % (auto) 0.0 PT INR APTT Anion Gap 13 Estim Creat Clear Calc 36.8 Estimated GFR > 60 Random Glucose 137 H Lactic Acid Lactic Acid F/U @ 2Hr Calcium 8.8 Lactate Dehydrogenase Troponin I High Sens B-Natriuretic Peptide Total Protein TSH 1.38 Urine Color Urine Appearance Urine pH Ur Specific Ava Urine Protein Urine Glucose (UA) Urine Ketones Urine Blood Urine Nitrite Ur Leukocyte Esterase Urine RBC Urine WBC Ur Squamous Epith Cells Urine Bacteria Hyaline Casts Influenza Type A (PCR) NEGATIVE Influenza Type B (PCR) NEGATIVE RSV RNA Qual (PCR) NEGATIVE SARS-CoV-2 RNA (RT-PCR) NEGATIVE 09/03/22 09/03/22 09/03/22 10:59 10:59 11:01 MCV MCH MCHC RDW Plt Count MPV Immature Gran % (Auto) Neut % (Auto) Lymph % (Auto) [place] % (Auto) Eos % (Auto) Baso % (Auto) Lymph # (Auto) [place] # (Auto) Eos # (Auto) Baso # (Auto) Abs Immat Gran (auto) Absolute Neuts (auto) Absolute Nucleated RBC Nucleated RBC % (auto) PT INR APTT Anion Gap Estim Creat Clear Calc Estimated GFR Random Glucose Lactic Acid 2.2 H* Lactic Acid F/U @ 2Hr Calcium Lactate Dehydrogenase Troponin I High Sens 46.9 H B-Natriuretic Peptide 2586 H Total Protein TSH Urine Color Urine Appearance Urine pH Ur Specific Ava Urine Protein Urine Glucose (UA) Urine Ketones Urine Blood Urine Nitrite Ur Leukocyte Esterase Urine RBC Urine WBC Ur Squamous Epith Cells Urine Bacteria Hyaline Casts Influenza Type A (PCR) Influenza Type B (PCR) RSV RNA Qual (PCR) SARS-CoV-2 RNA (RT-PCR) 09/03/22 09/03/22 09/04/22 13:09 13:46 06:52 MCV MCH MCHC RDW Plt Count MPV Immature Gran % (Auto) Neut % (Auto) Lymph % (Auto) [place] % (Auto) Eos % (Auto) Baso % (Auto) Lymph # (Auto) [place] # (Auto) Eos # (Auto) Baso # (Auto) Abs Immat Gran (auto) Absolute Neuts (auto) Absolute Nucleated RBC Nucleated RBC % (auto) PT INR APTT Anion Gap Estim Creat Clear Calc Estimated GFR Random Glucose Lactic Acid Lactic Acid F/U @ 2Hr 1.2 Calcium Lactate Dehydrogenase Troponin I High Sens B-Natriuretic Peptide 981 H Total Protein TSH Urine Color Yellow Urine Appearance Clear Urine pH 5.5 Ur Specific Ava >= 1.030 H Urine Protein 30 (1+) H Urine Glucose (UA) Negative Urine Ketones Trace Urine Blood Negative Urine Nitrite Negative Ur Leukocyte Esterase Negative Urine RBC 0-2 Urine WBC 0-5 Ur Squamous Epith Cells 0-2 Urine Bacteria None Seen Hyaline Casts 0-2 Influenza Type A (PCR) Influenza Type B (PCR) RSV RNA Qual (PCR) SARS-CoV-2 RNA (RT-PCR) 09/04/22 09/04/22 09/04/22 06:52 06:52 07:41 MCV 88.3 MCH 29.7 MCHC 33.6 RDW 13.8 Plt Count 203 MPV 10.4 Immature Gran % (Auto) Neut % (Auto) Lymph % (Auto) [place] % (Auto) Eos % (Auto) Baso % (Auto) Lymph # (Auto) [place] # (Auto) Eos # (Auto) Baso # (Auto) Abs Immat Gran (auto) Absolute Neuts (auto) Absolute Nucleated RBC 0.000 Nucleated RBC % (auto) 0.0 PT 14.1 H INR 1.2 H APTT 30.6 Anion Gap 12 Estim Creat Clear Calc 36.4 Estimated GFR > 60 Random Glucose 111 Lactic Acid Lactic Acid F/U @ 2Hr Calcium 8.4 Lactate Dehydrogenase 238 H Troponin I High Sens B-Natriuretic Peptide Total Protein 5.5 L TSH Urine Color Urine Appearance Urine pH Ur Specific Ava Urine Protein Urine Glucose (UA) Urine Ketones Urine Blood Urine Nitrite Ur Leukocyte Esterase Urine RBC Urine WBC Ur Squamous Epith Cells Urine Bacteria Hyaline Casts Influenza Type A (PCR) Influenza Type B (PCR) RSV RNA Qual (PCR) SARS-CoV-2 RNA (RT-PCR) Assessment and Plan (1) Acute CHF (congestive heart failure): Status: Acute (2) LBBB (left bundle branch block): Status: Acute (3) Pleural effusion: Status: Acute Plan An 87 years old lady with PMH of HTN who presents to the [facility] with 1 week history of SOB and dyspnea on exertion. Bilateral pleural effusion 2/2 newly diagnosed Acute heart failure with exacerbation BNP trending down Pending Echo Continue Lasix To do Thoracentesis today Cardiology input appreciated Wean down O2 supplement Collapsed lungs no sings of infection Incentive spirometry , Mucinex Start chest physiotherapy Thyroid nodule To be followed as OP HTN hold home meds DCT PPx Lovenox The patient will likely needs overnight hospital stay for eval and tx of heart failure exacerbation Time Spent With Patient Time: Total time managing care of this patient today ____ minutes. Quality Stroke Does the patient have a stroke diagnosis?: No VTE Prior VTE?: No VTE Risk Level:: Medical - moderate - high VTE Device Contraindication: Treatment Not Indicated VTE Drug Contraindication: N/A - Med Ordered
--- NOTE | 2022-09-04 12:54 | PC.NURSE ---
pt exp bradycardia down to 30-40s on tele while this RN was on break, non-sustained. no other reports during this episode
[2022-09-04] MEDS: Lidocaine HCl 1 % MPF 5 ML VIAL 10 ML SUBCUT (14:14)
[2022-09-04 14:41] LABS: RBC Pleural Fluid < 0.002 X10*3/uL; WBC Pleural Fluid 0.801 X10*3/uL
[2022-09-04] MEDS: Enoxaparin Sodium 40 MG/0.4 ML SYRINGE SUBCUT (15:04)
[2022-09-04 15:35] LABS: BF Shift QC OK YES; Lymphocytes Pleural Fluid 36 %; Monocytes Pleural Fluid 12 %; Neutrophils Pleural Fluid 1 %; Other Cells Plerual Fl 51 %
[2022-09-04] MEDS: 0.9 % Sodium Chloride Flush 3 ML SYRINGE IVFLUSH (20:17)
[2022-09-05] VITALS (7 sets, daily range): BP systolic 117–140; BP diastolic 56–81; PULSE 70–99; RESP 17–20; TEMP 36.2–36.7; O2SAT 95–97
[2022-09-05 07:11] LABS: Anion Gap 12 (12-20); Blood Urea Nitrogen 19 mg/dL (9-16); Calcium 8.6 mg/dL (8.4-10.2); Carbon Dioxide 28 mmol/L (22-29); Chloride 106 mmol/L (96-108); Creatinine Clr Calc Pharmacy 39.1; Estimated Glomerular Filt Rate > 60; Glucose Random 105 mg/dL (60-115); Potassium 3.2 mmol/L (3.3-5.1); Sodium 143 mmol/L (135-145)
[2022-09-05] MEDS: guaiFENesin LA 600 MG TAB.ER.12H PO ×2 (07:31→20:22)
[2022-09-05] MEDS: Furosemide 40 MG/4 ML VIAL IVPUSH ×2 (07:32→17:03)
[2022-09-05] MEDS: 0.9 % Sodium Chloride Flush 3 ML SYRINGE IVFLUSH ×3 (07:32→20:24)
[2022-09-05] MEDS: Potassium Chloride Packet 20 MEQ PACKET 40 MEQ PO ×2 (09:33→10:20)
[2022-09-05 09:36] LABS: B Type Natriuretic Peptide 260 pg/mL (<100)
[2022-09-05] MEDS: Metoprolol Tartrate 12.5 MG HALFTAB PO ×2 (10:42→20:24)
[2022-09-05] MEDS: Sacubitril/Valsartan 24/26 1 TAB TABLET PO ×2 (10:42→20:24)
--- NOTE | 2022-09-05 11:21 | PM.PNCARD ---
Subjective Subjective Date of Service: 09/05/22 Interval history: States that she feels okay. No new complaints. Review of Systems Review of Systems Yes all other systems are reviewed and are negative Constitutional: Reports as per HPI and Reports no additional constitutional complaints Eyes: Reports as per HPI and Denies no additional eye complaints Denies system reviewed and no additional complaints, except as documented and Reports as per HPI Cardiovascular: Reports as per HPI, Reports no additional cardiovascular complaints, Denies acrocyanosis, Denies cool extremities, Denies chest pain, Denies leg edema, Denies lightheadedness, Denies palpitations and Denies dyspnea Respiratory: Reports as per HPI, Denies no additional respiratory complaints and Denies dyspnea Gastrointestinal: Reports as per HPI and Denies no additional gastrointestinal complaints Genitourinary: Reports as per HPI Musculoskeletal: Reports no additional musculoskeletal complaints and Reports as per HPI Skin/Breast: Reports system reviewed and no additional complaints, except as docu Reports system reviewed and no additional complaints, except as documented and Reports as per HPI Psychiatric: Reports no additional psychiatric complaints and Reports as per HPI Endocrine: Reports no additional endocrine complaints, Reports as per HPI and Denies palpitations Hematologic/Lymphatic: Reports no additional hematologic/lymphatic complaints and Reports as per HPI Allergic/Immunologic: Reports no additional allergic/immunologic complaints and Reports as per HPI Physical Exam Vital Signs: Last Vital Signs Temp 97.2 F 09/05/22 07:15 Pulse 74 09/05/22 07:15 Resp 18 09/05/22 07:15 BP 140/81 H 09/05/22 07:15 Pulse Ox 95 09/05/22 07:30 O2 Del Method 09/05/22 07:30 O2 Flow Rate 2 09/05/22 07:15 BMI result Body Mass Index 24.0 Const General: comfortable and no acute distress Orientation/consciousness: patient oriented x3 HEENT Other: Unremarkable Head: Yes normal to inspection Neck Neck: Yes normal visual inspection Chest Chest palpation & inspection: normal inspection of the chest Resp Auscultation: clear to auscultation bilaterally Cardio Palpation: normal PMI Heart sounds: S1 normal heart sound present, S2 normal heart sound present, no gallops, no murmurs and no rubs GI Palpation (GI): Soft to palpation Back/Spine/Pelvis Other: unremarkable Skin General skin exam: no rashes or lesions noted Neuro General: patient oriented x3 Extrem General: Yes normal to inspection Psych Mental Status: mental status grossly normal Objective Labs and Meds 09/04/22 06:52 09/05/22 06:14 Lab results: Laboratory Results - last 24 hr 09/04/22 09/05/22 09/05/22 13:29 06:14 06:14 Sodium 143 Potassium 3.2 L Chloride 106 Carbon Dioxide 28 Anion Gap 12 BUN 19 H Creatinine 0.80 Estim Creat Clear Calc 39.1 Estimated GFR > 60 Random Glucose 105 Calcium 8.6 B-Natriuretic Peptide 260 H Pleural WBC 0.801 Pleural RBC < 0.002 Pleural Neutrophils 1 Pleural Lymphocytes 36 Pleural Monocytes 12 Pleural Other Cells 51 Imaging Radiologist's impression: Impressions Thoracentesis Ultrasound 09/04/22 13:50 IMPRESSION: Right thoracentesis with removal of 550 mL of clear yellow fluid. Chest X-Ray 09/04/22 14:00 IMPRESSION: Decrease in size of right pleural effusion status post thoracentesis. No pneumothorax. Progress Note: A&P Assessment and plan (1) Acute combined systolic and diastolic CHF, NYHA class 3: Status: Acute (2) LBBB (left bundle branch block): Status: Acute Plan In the echocardiogram, LVEF 15 20%. Mild diastolic dysfunction with increased filling pressures. Discussed findings with patient. Continue with IV diuretics from the day or so. Start Entresto. Other meds to be optimized in due course. Will follow with you. Discussed with Dr. Woods. Time Spent With Patient Time: Total time managing care of this patient today ____ minutes. Progress Note: Quality Stroke Does the patient have a stroke diagnosis?: No Procedures Date of Service Date of Service: 09/05/22
--- NOTE | 2022-09-05 13:38 | HO.PM.IMPN ---
Subjective Subjective Date of Service: 09/05/22 Interval History: Seen and evaluated this morning Feels much more comfortable On room air reported other overnight events Review of Systems No fever, chills or weakness No chest pain, palpitation exertional shortness of breath with dyspnea No abdominal pain, nausea or vomiting No urinary symptoms No any rash or wounds Physical Exam Vital Signs: Vital Signs: Last Vital Signs Temp 97.5 F 09/05/22 11:29 Pulse 99 09/05/22 11:29 Resp 18 09/05/22 11:29 BP 120/77 09/05/22 11:29 Pulse Ox 95 09/05/22 11:29 O2 Del Method 09/05/22 11:29 O2 Flow Rate 2 09/05/22 07:15 BMI result Body Mass Index 24.0 Const: Other: Constitutional : Awake, interactive, not in distress Neck : Normal inspection, Supple Cardiovascular : RRR, no JVP, trace lower extremity edema Respiratory : decrease bilateral air entry, basal fine crackles, no wheezes or rhonchi Gastrointestinal: soft, lax, Normal bowel sounds, Non tender Skin : Warm, Dry Neurological : Alert & oriented x3, No focal deficit Objective Data Active Medications Acetaminophen (Acetaminophen 325 Mg Tablet) 650 mg PO Q6H PRN PRN Reason: Pain, Mild (Pain Scale 1-3) Benzonatate (Benzonatate 100 Mg Capsule) 100 mg PO TID PRN PRN Reason: Cough Last Admin: 09/04/22 07:47 Dose: 100 mg Documented By: JEAN CARLOS Enoxaparin Sodium (Enoxaparin Sodium 40 Mg/0.4 Ml Syringe) 40 mg SUBCUT Q24H [facility] Last Admin: 09/04/22 15:04 Dose: 40 mg Documented By: JEAN CARLOS Furosemide (Furosemide 40 Mg/4 Ml Vial) 40 mg IVPUSH BID@0900,1800 [facility]; Protocol Last Admin: 09/05/22 07:32 Dose: 40 mg Documented By: JASON Guaifenesin (Guaifenesin La 600 Mg Tab.Er.12h) 600 mg PO BID [facility] Last Admin: 09/05/22 07:31 Dose: 600 mg Documented By: JASON Guaifenesin (Guaifenesin 200 Mg/10 Ml 10 Ml Liquid) 10 ml PO Q4H PRN PRN Reason: Cough Metoprolol Tartrate (Metoprolol Tartrate 12.5 Mg Halftab) 12.5 mg PO BID [facility]; Protocol Last Admin: 09/05/22 10:42 Dose: 12.5 mg Documented By: JASON Ondansetron HCl (Ondansetron Hcl 4 Mg/2 Ml Vial) 4 mg IVPUSH Q8H PRN PRN Reason: Nausea and Vomiting Pharmacy Consult (Consult Rx Perform Med Rec) 1 each MISCELLANE ONCE PRN PRN Reason: Consult order Sacubitril/Valsartan (Sacubitril/Valsartan 1 Tab Tablet) 1 tab PO BID [facility]; Protocol Last Admin: 09/05/22 10:42 Dose: 1 tab Documented By: JASON Sodium Chloride (0.9 % Sodium Chloride Flush 3 Ml Syringe) 3 ml IVFLUSH QSHIFT [facility] Last Admin: 09/05/22 07:32 Dose: 3 ml Documented By: JASON Labs 09/04/22 06:52 09/05/22 06:14 Labs: Laboratory Results - last 24 hr 09/04/22 09/05/22 09/05/22 13:29 06:14 06:14 Anion Gap 12 Estim Creat Clear Calc 39.1 Estimated GFR > 60 Random Glucose 105 Calcium 8.6 B-Natriuretic Peptide 260 H Pleural WBC 0.801 Pleural RBC < 0.002 Pleural Neutrophils 1 Pleural Lymphocytes 36 Pleural Monocytes 12 Pleural Other Cells 51 Microbiology Microbiology Results: Microbiology 09/03/22 10:59 Blood Culture - Preliminary Blood - Venous No growth after 48 hours. 09/03/22 11:00 Blood Culture - Preliminary Blood - Venous No growth after 48 hours. Assessment and Plan (1) Acute combined systolic and diastolic CHF, NYHA class 3: Status: Acute Plan An 87 years old lady with PMH of HTN who presents to the [facility] with 1 week history of SOB and dyspnea on exertion. Bilateral pleural effusion 2/2 newly diagnosed Acute combined systolic\diastolic heart failure with exacerbation Echo showing EF of 15-20% with mild diastolic dysfunction Continue Lasix Thoracentesis done removing 0.5L pending fluid analysis Cardiology input appreciated, start Entresto Wean down O2 supplement Collapsed lungs no sings of infection Incentive spirometry , Mucinex chest physiotherapy Thyroid nodule To be followed as OP HTN hold home meds DCT PPx Lovenox The patient will likely needs overnight hospital stay for eval and tx of heart failure exacerbation Time Spent With Patient Time: Total time managing care of this patient today ____ minutes. Quality Stroke Does the patient have a stroke diagnosis?: No VTE Prior VTE?: No VTE Risk Level:: Medical - moderate - high VTE Device Contraindication: Treatment Not Indicated VTE Drug Contraindication: N/A - Med Ordered
[2022-09-05] MEDS: Enoxaparin Sodium 40 MG/0.4 ML SYRINGE SUBCUT (17:03)
[2022-09-06 03:46] VITALS: BP 105/60; PULSE 82; RESP 20; TEMP 36.1; O2SAT 92
[2022-09-06 04:24] LABS: LDH Pleural Fluid 169 U/L
[2022-09-06 07:36] VITALS: BP 113/68; PULSE 84; RESP 20; TEMP 36; O2SAT 96
[2022-09-06 07:39] LABS: Blood Urea Nitrogen 23 mg/dL (9-16); Calcium 8.6 mg/dL (8.4-10.2); Creatinine Clr Calc Pharmacy 35.2; Estimated Glomerular Filt Rate 60; Glucose Random 108 mg/dL (60-115)
[2022-09-06 07:55] LABS: Anion Gap 15 (12-20); Carbon Dioxide 26 mmol/L (22-29); Chloride 106 mmol/L (96-108); Potassium 4.2 mmol/L (3.3-5.1); Sodium 143 mmol/L (135-145)
[2022-09-06] MEDS: Metoprolol Tartrate 12.5 MG HALFTAB PO (08:13)
[2022-09-06] MEDS: Sacubitril/Valsartan 24/26 1 TAB TABLET PO (08:13)
[2022-09-06] MEDS: 0.9 % Sodium Chloride Flush 3 ML SYRINGE IVFLUSH (08:13)
[2022-09-06] MEDS: Furosemide 40 MG/4 ML VIAL IVPUSH (08:13)
[2022-09-06] MEDS: guaiFENesin LA 600 MG TAB.ER.12H PO (08:13)
--- NOTE | 2022-09-06 09:57 | P.PNCA_ITS ---
Subjective Subjective Date of Service: 09/06/22 Interval history: Patient states that she is feeling okay. Breathing is improved. Granddaughter is also at bedside. Review of Systems Review of Systems Yes all other systems are reviewed and are negative Constitutional: Reports as per HPI and Reports no additional constitutional complaints Eyes: Reports as per HPI and Denies no additional eye complaints Denies system reviewed and no additional complaints, except as documented and Reports as per HPI Cardiovascular: Reports as per HPI, Reports no additional cardiovascular complaints, Denies acrocyanosis, Denies cool extremities, Denies chest pain, D enies leg edema, Denies lightheadedness, Denies palpitations and Reports dyspnea Respiratory: Reports as per HPI, Denies no additional respiratory complaints and Reports dyspnea Gastrointestinal: Reports as per HPI and Denies no additional gastrointestinal complaints Genitourinary: Reports as per HPI Musculoskeletal: Reports no additional musculoskeletal complaints and Reports as per HPI Skin/Breast: Reports system reviewed and no additional complaints, except as docu Reports system reviewed and no additional complaints, except as documented and Reports as per HPI Psychiatric: Reports no additional psychiatric complaints and Reports as per HPI Endocrine: Reports no additional endocrine complaints, Reports as per HPI and De nies palpitations Hematologic/Lymphatic: Reports no additional hematologic/lymphatic complaints and Reports as per HPI Allergic/Immunologic: Reports no additional allergic/immunologic complaints and Reports as per HPI Physical Exam Vital Signs: Last Vital Signs Temp 96.8 F 09/06/22 07:36 Pulse 84 09/06/22 07:36 Resp 20 09/06/22 07:36 BP 113/68 09/06/22 07:36 Pulse Ox 96 09/06/22 07:36 O2 Del Method 09/06/22 07:36 O2 Flow Rate 2 09/05/22 07:15 BMI result Body Mass Index 24.0 Const General: comfortable and no acute distress Orientation/consciousness: patient oriented x3 HEENT Other: Unremarkable Head: Yes normal to inspection Neck Neck: Yes normal visual inspection Chest Chest palpation & inspection: normal inspection of the chest Resp Auscultation: clear to auscultation bilaterally Cardio Palpation: normal PMI Heart sounds: S1 normal heart sound present, S2 normal heart sound present, no gallops, no murmurs and no rubs GI Palpation (GI): Soft to palpation Back/Spine/Pelvis Other: unremarkable Skin General skin exam: no rashes or lesions noted Neuro General: patient oriented x3 Extrem General: Yes normal to inspection Psych Mental Status: mental status grossly normal Objective Labs and Meds 09/04/22 06:52 09/06/22 06:52 Lab results: Laboratory Results - last 24 hr 09/04/22 09/06/22 13:29 06:52 Sodium 143 Potassium 4.2 D Chloride 106 Carbon Dioxide 26 Anion Gap 15 BUN 23 H Creatinine 0.89 Estim Creat Clear Calc 35.2 Estimated GFR 60 Random Glucose 108 Calcium 8.6 Pleural Total Protein 2.0 Pleural LDH 169 Progress Note: A&P Assessment and plan (1) Acute combined systolic and diastolic CHF, NYHA class 3: Status: Acute (2) LBBB (left bundle branch block): Status: Acute Plan In the echocardiogram, LVEF 15 20%. Mild diastolic dysfunction with increased filling pressures. She seems to be improving. Change diuretics to oral. Beta-blockers/Entresto. Further meds to be titrated as outpatient depending on blood pressure, renal function and age appropriateness. Will follow-up in the office. Discussed with patient and granddaughter. Time Spent With Patient Time: Total time managing care of this patient today 45 minutes. Progress Note: Quality Stroke Does the patient have a stroke diagnosis?: No Procedures Date of Service Date of Service: 09/06/22
[2022-09-06 11:41] VITALS: BP 125/61; PULSE 84; RESP 16; TEMP 36; O2SAT 98
--- NOTE | 2022-09-06 11:58 | PM.DS ---
DS: Providers Provider Date of Service: 09/06/22 Date of admission: 09/03/22 15:06 Primary care physician: Renzo Taylor MD Consults: 09/03/22 15:06 Consult to Cardiology Routine Consulting Provider: [facility] [place] [facility] [place] [facility] Reason for consultation: New onset heart failure DS: Diagnosis Discharge Diagnosis (1) Acute combined systolic and diastolic CHF, NYHA class 3: Status: Acute (2) LBBB (left bundle branch block): Status: Acute (3) Pleural effusion: Status: Acute DS: Summary Hospital Course Hospital Course: Admission note HPI An 87 years old lady with PMH of HTN who presents to the [facility] with 1 week history of SOB and dyspnea on exertion. The lady reports that she is usually active and walks around house, goes up and down stairs with good stability. for at least 1 week now she noticed more SOB with exertion and feeling od dyspnea with regular activities. Denies any chest pain, palpitations, headache, change in bowel habit, nausea, vomiting or urinary symptoms. In ED found to have bilateral pleural effusion with elevated BNP suggestive of new onset heart failure. admitted for further eval and rec. Hospital course the patient was admitted to the hospital for evaluation of difficulty breathing believed to be secondary to Bilateral pleural effusion 2/2 newly diagnosed Acute combined systolic\diastolic heart failure with exacerbation as an Echo showing EF of 15-20% with mild diastolic dysfunction. Treated with IV Lasix and Thoracentesis done removing 0.5L of transudative effusion. Seen by our cardiology team who recommended starting Entresto, beta-randy and to follow-up as outpatient for further workup. Start daily Lasix Monitor your weight and report any changes to PCP Discontinue lisinopril and hydrochlorothiazide Start Entresto and metoprolol To follow-up with Dr. Carranza in the office for further adjustments of her medications To repeat blood work next week Time Spent with Patient Time attestation: Total time managing care of this patient today ____ minutes. Discharge coordination time: Greater than 30 minutes Quality: Safe Use of Opioids Does Pt have an Active Cancer Diagnosis on the Problem List?: No Quality: Stroke Does the patient have a stroke diagnosis?: No Physical Exam Vital Signs: Vital Signs: Last Vital Signs Temp 96.8 F 09/06/22 11:41 Pulse 84 09/06/22 11:41 Resp 16 09/06/22 11:41 BP 125/61 09/06/22 11:41 Pulse Ox 98 09/06/22 11:41 O2 Del Method 09/06/22 11:41 O2 Flow Rate 2 09/05/22 07:15 BMI result Body Mass Index 24.0 Const: Other: Constitutional : Awake, interactive, not in distress Neck : Normal inspection, Supple Cardiovascular : RRR, no JVP, trace lower extremity edema Respiratory : decrease bilateral air entry, basal fine crackles, no wheezes or rhonchi Gastrointestinal: soft, lax, Normal bowel sounds, Non tender Skin : Warm, Dry Neurological : Alert & oriented x3, No focal deficit DS: Data Data Completed and Pending Pending studies at discharge: Pending at discharge 09/04/22 13:45 Cytology [PTH] Routine Labs on day of discharge: Laboratory Results - last 24 hr 09/04/22 09/06/22 13:29 06:52 Sodium 143 Potassium 4.2 D Chloride 106 Carbon Dioxide 26 Anion Gap 15 BUN 23 H Creatinine 0.89 Estim Creat Clear Calc 35.2 Estimated GFR 60 Random Glucose 108 Calcium 8.6 Pleural Total Protein 2.0 Pleural LDH 169 Preliminary micro results at discharge 09/03/22 10:59 Blood Culture - Preliminary Blood - Venous No growth after 48 hours. 09/03/22 11:00 Blood Culture - Preliminary Blood - Venous No growth after 48 hours. Imaging Chest x-ray: Radiologist's impression: ITS Impressions Chest X-Ray 09/03/22 11:22 IMPRESSION: 1. Question of mild pulmonary vascular congestion with upper zone redistribution and small bilateral pleural effusions 2. Bibasilar atelectasis. 3. Tracheal deviation to the right as described above. Chest CTA 09/03/22 12:29 IMPRESSION: 1. No evidence of pulmonary emboli. 2. Moderate-sized bilateral pleural effusions with associated compressive atelectasis. 3. 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 Thyroid ultrasound is recommended for further evaluation. VTE: negative. Thoracentesis Ultrasound 09/04/22 13:50 IMPRESSION: Right thoracentesis with removal of 550 mL of clear yellow fluid. Chest X-Ray 09/04/22 14:00 IMPRESSION: Decrease in size of right pleural effusion status post thoracentesis. No pneumothorax. Discharge Plan Discharge Anticipated Discharge Date/Time: 09/06/22 11:32 Patient Disposition: Home, Self-Care Discharge Diagnosis: acute heart failure exacerbation Referrals: Renzo Taylor MD [Primary Care Provider] - 1 Week Discharge Medications: New Entresto 24-26 mg tablet 1 tab PO BID Qty: 60 0RF metoprolol succinate 25 mg tablet extended release 24 hr 25 mg PO DAILY Qty: 30 0RF furosemide 40 mg tablet 40 mg PO DAILY Qty: 30 0RF Discontinued losartan-hydrochlorothiazide 50-12.5 mg tablet 1 tab PO DAILY Discharge Orders: Discharge Order (Routine); Ordered 09/06/22 Ordered By: Mónica Woods Diet: Advance to usual diet Activity on Discharge: As tolerated Stand Alone Forms: Patient Portal Discharge page Other Ambulatory Orders: Basic Metabolic Panel (Routine) Timeframe: 5 Days Facility: [facility] - Location: Laboratory Ordered By: Mónica Woods Care Plan Goals: Read below Health Concerns: Read below Plan of Treatment: Read below Assessment: you were admitted to the hospital for evaluation of difficulty breathing. Found to have bilateral fluid collection around your lungs. Treated with water pills and removing fluid from your lungs. Evaluated by diesel truck mechanic as an Echo showed decreased function of the heart to 20%. Responded well to treatment as you were able to ambulate on room air with no reported difficulty breathing. Start daily Lasix Monitor your weight and report any changes to PCP Discontinue lisinopril and hydrochlorothiazide Start Entresto and metoprolol To follow-up with Dr. Carranza in the office for further adjustments of her medications To repeat blood work next week
--- NOTE | 2022-09-06 12:10 | MHC.CM.PN ---
order for home, self care. CM acknowledge.
== END 2022-09-06 12:47 | disposition home or self-care (01) | DRG 291 ==
LOC: HO.ED 14:19 → HO.EDOVER 15:36 → HO.IMC 15:38
PROVIDERS: Radiology Diagnostic Radiology; Admitting Provider Student in an Organized Health Care Education/Training Program; Emergency Provider Emergency Medicine Emergency Medical Services; PCP Internal Medicine; Visit Provider Student in an Organized Health Care Education/Training Program
DX: I11.0 Hypertensive heart disease with heart failure (principal); I50.43 Acute on chronic combined systolic (congestive) and diastolic (congestive) heart failure; J91.8 Pleural effusion in other conditions classified elsewhere; J98.19 Other pulmonary collapse; E04.1 Nontoxic single thyroid nodule; I44.7 Left bundle-branch block, unspecified; Z20.822 Contact with and (suspected) exposure to COVID-19; Z79.899 Other long term (current) drug therapy
CPT/HCPCS: 0241U; 32555; 36415; 71045; 71275; 80048; 81001; 83605; 83615; 83880; 84155; 84157; 84443; 84484; 85025; 85027; 85610; 85730; 87040; 88112; 88305; 88313; 89051; 93005; 93306; 99285; J0696; J1650; J1940; Q9957; Q9967

== ENCOUNTER 2022-09-11 10:20 | Outpatient (REF) | payer MEDICARE, SELFPAY ==
[2022-09-11 12:11] LABS: Anion Gap 16 (12-20); Blood Urea Nitrogen 15 mg/dL (9-16); Calcium 9.4 mg/dL (8.4-10.2); Carbon Dioxide 26 mmol/L (22-29); Chloride 106 mmol/L (96-108); Estimated Glomerular Filt Rate > 60; Glucose Random 110 mg/dL (60-115); Potassium 3.6 mmol/L (3.3-5.1); Sodium 144 mmol/L (135-145)
== END 2022-09-11 10:21 | disposition home or self-care (01) ==
LOC: HO.LAB 10:20
PROVIDERS: Student in an Organized Health Care Education/Training Program; Visit Provider Internal Medicine
DX: I50.41 Acute combined systolic (congestive) and diastolic (congestive) heart failure (principal)
CPT/HCPCS: 36415; 80048

== ENCOUNTER → 2022-10-07 13:25 | Outpatient (BNVA) | payer MEDICARE, SELFPAY | PROVIDERS: PCP Internal Medicine; Referring Provider Internal Medicine; Visit Provider Internal Medicine | DX: I11.0 Hypertensive heart disease with heart failure (principal); I50.42 Chronic combined systolic (congestive) and diastolic (congestive) heart failure; I44.7 Left bundle-branch block, unspecified | CPT/HCPCS: 99212 ==

== ENCOUNTER 2022-10-16 09:34 | Outpatient (REF) | payer MEDICARE, SELFPAY ==
[2022-10-16 10:39] LABS: Anion Gap 11 (12-20); Blood Urea Nitrogen 18 mg/dL (9-16); Calcium 9.3 mg/dL (8.4-10.2); Carbon Dioxide 29 mmol/L (22-29); Chloride 108 mmol/L (96-108); Estimated Glomerular Filt Rate > 60; Glucose Random 91 mg/dL (60-115); Potassium 4.6 mmol/L (3.3-5.1); Sodium 143 mmol/L (135-145)
== END 2022-10-16 09:35 | disposition home or self-care (01) ==
LOC: HO.LAB 09:34
PROVIDERS: PCP Internal Medicine; Visit Provider Internal Medicine
DX: I50.41 Acute combined systolic (congestive) and diastolic (congestive) heart failure (principal)
CPT/HCPCS: 36415; 80048

== ENCOUNTER 2023-01-19 14:29 | Outpatient (AMB) | payer MEDICARE, SELFPAY ==
--- NOTE | 2023-01-19 14:33 | MHC.OFFVIS ---
Intake Vital Signs 01/19/23 14:35 Height 5 ft 2 in Weight 116 lb 6.465 oz BMI 21.3 BP 122/60 Blood Pressure Location Lt brachial Position Sitting Pulse 60 Intake Visit Reasons: 3 month follow up Intake Note: 3 month follow up Software Configuration Engineer Required: No Accompanied by: Daughter Allergies No Known Allergies Allergy (Verified 01/19/23 14:37) Medication List - Last Reconciled 01/19/23 by Luis Carranza MD furosemide 40 mg PO DAILY metoprolol succinate ER 25 mg PO DAILY sacubitril-valsartan 24-26 mg (Entresto) 1 tab PO BID 90 days spironolactone 25 mg PO DAILY HPI HPI Comments History of Present Illness Details Stephanie returns for follow-up regarding cardiomyopathy. Few months back, she was admitted to the hospital with shortness of breath and treated for acute heart failure. Echocardiogram severe LV dysfunction. She also has left bundle-branch block on EKG. Being treated for systolic heart failure. She is on Coreg, Entresto and diuretics. Overall, doing good. Shortness of breath is essentially at baseline. She has no symptoms at this time. Prior to this, no cardiac issues. She only has a history of hypertension. [facility] Medical History (Updated 10/07/22 @ 14:17 by Luis Carranza MD) Congestive cardiac failure HTN (hypertension) LBBB (left bundle branch block) Pleural effusion Family History Father No problems noted. Mother No problems noted. Social History Household Members: None Housing: House Do you presently have visiting nurse or other home services: No Alcohol intake: never Patient Tobacco Use Status: Never used Tobacco e-Cigarette/Vaping Use: Never Used Second Hand Smoke Exposure: No service: No Current occupational status: retired Review of Systems Const Denies weakness ENT Denies dizziness Card Denies chest pain, Denies chest pain with activity, Denies syncope, Denies rapid heart rate, Denies pedal edema, Denies edema, Denies leg edema, Denies lightheadedness, Denies palpitations, Denies dyspnea, Denies dyspnea on exertion and Denies orthopnea Resp Denies cough, Denies dyspnea and Denies dyspnea on exertion GI Denies hematochezia and Denies change in stool character Musc Denies abnormal gait, Denies muscle cramps, Denies muscle weakness, Denies numbness, Denies radiating pain into limb and Denies tingling Neuro Denies abnormal gait, Denies dizziness, Denies syncope, Denies numbness, Denies tingling and Denies weakness Endo Denies palpitations Physical Exam Vital Signs: Last Vital Signs Pulse 60 01/19/23 14:35 BP 122/60 01/19/23 14:35 BMI result Body Mass Index 21.3 Const General: comfortable and no acute distress Orientation/consciousness: patient oriented x3 HEENT Other: Unremarkable Head: Yes normal to inspection Neck Neck: Yes normal visual inspection Chest Chest palpation & inspection: normal inspection of the chest Resp Auscultation: clear to auscultation bilaterally Cardio Palpation: normal PMI Heart sounds: S1 normal heart sound present, S2 normal heart sound present, no gallops, no murmurs and no rubs GI Palpation (GI): Soft to palpation Back/Spine/Pelvis Other: unremarkable Skin General skin exam: no rashes or lesions noted Neuro General: patient oriented x3 Extrem General: Yes normal to inspection Psych Mental Status: mental status grossly normal Assessment & Plan Assessment & Plan (1) Chronic combined systolic and diastolic CHF (congestive heart failure): Code(s): I50.42 - Chronic combined systolic (congestive) and diastolic (congestive) heart failure (2) LBBB (left bundle branch block): Code(s): I44.7 - Left bundle-branch block, unspecified (3) HTN (hypertension): Code(s): I10 - Essential (primary) hypertension Plan EKG shows sinus rhythm with left bundle-branch block pattern. Echocardiogram with LVEF of 15-20%. Overall, continue medical therapy for chronic heart failure. She is clinically euvolemic. Continue diuretics but also okay to take as needed. Continue beta-blockers, Entresto, spironolactone. Last potassium is 0.6. Last creatinine 0.81. We could potentially add Farxiga but do not think she is too keen on more medications. Also we discussed about a diagnostic catheterization last time as well as today but she would rather leave things the way they are. Hence conservative care only. We will see her in 6 months time. Repeat echocardiogram before that. Blood pressure seems stable. Orders: Orders CA echo transthoracic complete 6 Months I50.42 - Chronic combined systolic (congestive) and diastolic (congestive) heart failure Medications: New furosemide (Lasix) 40 mg (2 x 20 mg) PO DAILY 180 tabs 3RF 90 days Refilled spironolactone 25 mg PO DAILY 90 tabs 3RF sacubitril-valsartan 24-26 mg (Entresto) 1 tab PO BID 180 tabs 3RF 90 days metoprolol succinate ER 25 mg PO DAILY 90 tabs 3RF Discontinued furosemide Discontinued Reason: Doctor's Order 40 mg PO DAILY 90 tabs 3RF Coding Level of Care Code Est Pt Level 4 (59501) Diagnoses Chronic combined systolic and diastolic CHF (congestive heart failure) I50.42 LBBB (left bundle branch block) I44.7 HTN (hypertension) I10
[2023-01-19 14:35] VITALS: BP 122/60; PULSE 60; BMI 21.3
== END 2023-01-19 14:53 | disposition home or self-care (01) ==
PROVIDERS: Visit Provider Internal Medicine
DX: I50.42 Chronic combined systolic (congestive) and diastolic (congestive) heart failure (principal); I44.7 Left bundle-branch block, unspecified; I10 Essential (primary) hypertension
CPT/HCPCS: 99214

== ENCOUNTER → 2023-01-19 14:29 | Outpatient (BNVA) | payer MEDICARE, SELFPAY | PROVIDERS: Visit Provider Internal Medicine | DX: I11.0 Hypertensive heart disease with heart failure (principal); I50.42 Chronic combined systolic (congestive) and diastolic (congestive) heart failure; I44.7 Left bundle-branch block, unspecified | CPT/HCPCS: 99212 ==

== ENCOUNTER → 2023-07-14 13:54 | Outpatient (REF) | payer MEDICARE, SELFPAY ==
--- NOTE | 2023-07-14 13:57 | CA_ITS ---
Transthoracic Echocardiogram Patient (Last, First, Middle): Pearl Maldonado, Gender: Female Date of : 1935 Age: 88 Procedure Date: 07/14/2023 Procedure Type: Transthoracic Echocardiogram Location: OP Height: 157.48 cm Weight: 53.07 kg BSA: 1.52 m2 Heart Rate: bpm BP: 128 / 60 mmHg Technical Project Coordinator: TO Referring MD: Luis Carranza MD Symptoms: I50.42 - Chronic combined systolic (congestive) and diastolic (congestiv... Study Quality: Fair Conclusions: - The left ventricular systolic function is moderately decreased. The visually estimated ejection fraction is between 30-35%. - No obvious valvular pathology seen on this study. Findings Procedure Information The patient declines contrast. Left Ventricle Normal left ventricular cavity size. The left ventricular systolic function is moderately decreased. The visually estimated ejection fraction is between 30-35%. There is paradoxical septal motion consistent with a left bundle branch block. Evidence suggests grade I (mild) diastolic dysfunction. There is mild septal asymmetric hypertrophy. Right Ventricle Normal right ventricular cavity size and systolic function. Atria Both atria are normal in size. Aortic Valve There is a normal trileaflet aortic valve. There is no aortic valve stenosis. There is trace (trivial) aortic valve regurgitation. Mitral Valve There is mild anterior and posterior mitral leaflet thickening. There is trace mitral valve regurgitation. There is no mitral valve stenosis. Pulmonic Valve The pulmonic valve is likely normal. Tricuspid Valve There is trace tricuspid valve regurgitation. There is no evidence of pulmonary hypertension. Great Vessels The asc aorta is normal in size. Venous The inferior vena cava is normal in size and collapses greater than 50% with inspiration. Pericardium/Pleural There is no evidence of pericardial effusion. Prior Study Comparison Changes noted compared to prior study dated: 09/04/2022. Improved LVEF. Recommendations, Care & Conclusions No obvious valvular pathology seen on this study. Measurements 2D Linear Measurements IVSd: 1.02 0.6-0.9/0.6-1.0 cm LVIDd: 4.39 3.9-5.3/4.2-5.9 cm LVIDd Index: 2.89 2.4-3.2/2.2-3.1 cm/m2 LVIDs: 3.21 2.0-3.6 cm LVPWd: 1.00 0.7-1.1 cm LA Diam: 3.00 2.7-3.8/3.0-4.0 cm LAIDs Index: 1.97 1.5-2.3 cm/m2 LV Mass: 185.79 67-162/88-224 g LV Mass Index: 122.23 43-95/49-115 g/m2 LVOT Diam: 1.90 3.0+(-)1.3 cm 2D Systolic Function EF 4C: 33.10 >55% EF 2C: 45.00 >55% EF BiP: 38.70 >55% Mitral Valve MV VTI: 0.27 MV Pk Ayush: 1.25 MV Mn Ayush: 0.67 MV Pk Grad: 6.00 MV Mn Grad: 2.00 MV Pk E: 0.50 MV PK A: 1.00 MV Decel Time: 225.00 E/A: 0.50 E'Lateral: 3.15 E'Medial: 2.83 E/E' Med: 17.70 E/E' Lat: 15.90 PHT: 66.00 MVA PHT: 3.33 MVA Continuity: 2.27 Decel [place]: 2.23 Aortic Valve AoV Pk Ayush: 1.26 AoV Mn Ayush: 0.90 AoV VTI: 0.30 AoV Pk Grad: 6.00 Aov Mn Grad: 4.00 GAVIN Cont.VTI: 2.11 LVOT LVOT Pk Ayush: 1.02 LVOT Mn Ayush: 0.67 LVOT VTI: 0.22 LVOT Pk Grad: 4.00 LVOT Mn Grad: 2.00 LVOT Diam: 1.90 LVOT Area: 2.84 Diastolic Function MV Pk E: 0.50 MV Pk A: 1.00 E/A: 0.50 E'Medial: 2.83 E/E' Med: 17.70 E' Laterial: 3.15 E/E' Lat: 15.90 Right Ventricle TAPSE (mm): 23.80 Tricuspid Valve TR Pk Ayush: 2.04 TR Pk Grad: 17.00 RA Press: 3.00 RVSP: 20.00 Great Vessels Aorta Sinus of Valsalva: 2.81 2.0-3.5 cm Ao Asc: 3.20 2.1-3.4 cm Updated in Other Vendor System with Status of Final Luis Carranza MD electronically signed on 07/15/2023 12:55:40 PM with status of Final
== END ==
LOC: HO.CARD 13:54
PROVIDERS: PCP Internal Medicine; Visit Provider Internal Medicine
DX: I50.42 Chronic combined systolic (congestive) and diastolic (congestive) heart failure (principal)
CPT/HCPCS: 93306

== ENCOUNTER → 2023-07-14 13:57 | Outpatient (BNV) | payer MEDICARE, SELFPAY | PROVIDERS: PCP Internal Medicine; Visit Provider Internal Medicine | DX: I50.42 Chronic combined systolic (congestive) and diastolic (congestive) heart failure (principal) | CPT/HCPCS: 93306 ==

== ENCOUNTER 2023-07-22 14:52 | Outpatient (AMB) | payer MEDICARE, SELFPAY ==
--- NOTE | 2023-07-22 14:53 | MHC.OFFVIS ---
Intake Vital Signs 07/22/23 14:56 Height 5 ft 2 in Weight 122 lb 9.232 oz BMI 22.4 BP 140/72 H Blood Pressure Location Lt brachial Position Sitting Pulse 72 Intake Visit Reasons: 6 mth fu after echo Intake Note: 6 month follow up echo/EKG Cloth Checker Required: No Accompanied by: Daughter Allergies No Known Allergies Allergy (Verified 07/22/23 14:56) Medication List - Last Reconciled 07/22/23 by Luis Carranza MD furosemide (Lasix) 40 mg (2 x 20 mg) PO DAILY 90 days metoprolol succinate ER 25 mg PO DAILY sacubitril-valsartan 24-26 mg (Entresto) 1 tab PO BID 90 days spironolactone 25 mg PO DAILY HPI HPI Comments History of Present Illness Details Stephanie returns for follow-up regarding cardiomyopathy. To recall, she had a hospitalization for acute congestive heart failure. Echocardiogram then with severe LV dysfunction. She also had left bundle-branch block on the EKG. Since that time, she has been on guideline based medical therapy. Overall, she states she is doing good. Shortness of breath is significantly improved. Otherwise, no concerns. [facility] Medical History (Updated 10/07/22 @ 14:17 by Luis Carranza MD) LBBB (left bundle branch block) Pleural effusion HTN (hypertension) Congestive cardiac failure Family History Father No problems noted. Mother No problems noted. Social History Household Members: None Housing: House Do you presently have visiting nurse or other home services: No Alcohol intake: never Patient Tobacco Use Status: Never used Tobacco e-Cigarette/Vaping Use: Never Used Second Hand Smoke Exposure: No service: No Current occupational status: retired Review of Systems Const Denies weakness ENT Denies dizziness Card Denies chest pain, Denies chest pain with activity, Denies syncope, Denies rapid heart rate, Denies pedal edema, Denies edema, Denies leg edema, Denies lightheadedness, Denies palpitations, Denies dyspnea, Denies dyspnea on exertion and Denies orthopnea Resp Denies cough, Denies dyspnea and Denies dyspnea on exertion GI Denies hematochezia and Denies change in stool character Musc Denies abnormal gait, Denies muscle cramps, Denies muscle weakness, Denies numbness, Denies radiating pain into limb and Denies tingling Neuro Denies abnormal gait, Denies dizziness, Denies syncope, Denies numbness, Denies tingling and Denies weakness Endo Denies palpitations Physical Exam Vital Signs: Last Vital Signs Pulse 72 07/22/23 14:56 BP 140/72 H 07/22/23 14:56 BMI result Body Mass Index 22.4 Const General: comfortable and no acute distress Orientation/consciousness: patient oriented x3 HEENT Other: Unremarkable Head: Yes normal to inspection Neck Neck: Yes normal visual inspection Chest Chest palpation & inspection: normal inspection of the chest Resp Auscultation: clear to auscultation bilaterally Cardio Palpation: normal PMI Heart sounds: S1 normal heart sound present, S2 normal heart sound present, no gallops, no murmurs and no rubs GI Palpation (GI): Soft to palpation Back/Spine/Pelvis Other: unremarkable Skin General skin exam: no rashes or lesions noted Neuro General: patient oriented x3 Extrem General: Yes normal to inspection Psych Mental Status: mental status grossly normal Office Procedures EKG Details: EKG with sinus rhythm at 72/Min with a left bundle-branch block pattern. [id number], Complete Assessment & Plan Assessment & Plan (1) Chronic combined systolic and diastolic CHF (congestive heart failure): Code(s): I50.42 - Chronic combined systolic (congestive) and diastolic (congestive) heart failure (2) LBBB (left bundle branch block): Code(s): I44.7 - Left bundle-branch block, unspecified (3) HTN (hypertension): Code(s): I10 - Essential (primary) hypertension Plan EKG shows sinus rhythm with left bundle-branch block pattern. In the most recent echocardiogram, LVEF 30-35%. This is improved from prior study where LVEF was 15 20%. Clinically, she seems stable. Continue current medications including carvedilol, Entresto, spironolactone, Lasix. Borderline blood pressure but she also has anxiety coming here. Check labs including BMP/BNP. Could consider Farxiga, but she states she really does not want anymore medications. With regard to ischemic workup, she would rather just have conservative care and hence continue current medications as above. Follow-up in 6 months. Discussed with daughter. Orders: Orders Basic Metabolic Panel Today I50.42 - Chronic combined systolic (congestive) and diastolic (congestive) heart failure B Type Natriuretic Peptide Today I50.42 - Chronic combined systolic (congestive) and diastolic (congestive) heart failure Coding Level of Care Code Est Pt Level 4 (75926) Diagnoses Chronic combined systolic and diastolic CHF (congestive heart failure) I50.42 LBBB (left bundle branch block) I44.7 HTN (hypertension) I10 CPT Codes EKG - CPT: 57061-[id number], Complete ([id number])
[2023-07-22 14:56] VITALS: BP 140/72; PULSE 72; BMI 22.4
== END 2023-07-22 16:17 | disposition home or self-care (01) ==
PROVIDERS: PCP Internal Medicine; Visit Provider Internal Medicine
DX: I50.42 Chronic combined systolic (congestive) and diastolic (congestive) heart failure (principal); I44.7 Left bundle-branch block, unspecified; I10 Essential (primary) hypertension
CPT/HCPCS: 93010; 99214

== ENCOUNTER → 2023-07-22 14:52 | Outpatient (BNVA) | payer MEDICARE, SELFPAY | PROVIDERS: PCP Internal Medicine; Visit Provider Internal Medicine | DX: I11.0 Hypertensive heart disease with heart failure (principal); I50.42 Chronic combined systolic (congestive) and diastolic (congestive) heart failure; I44.7 Left bundle-branch block, unspecified | CPT/HCPCS: 93005; 99212 ==

== ENCOUNTER 2023-08-13 09:24 | Outpatient (REF) | payer MEDICARE, SELFPAY ==
[2023-08-13 10:17] LABS: Anion Gap 14 (12-20); Blood Urea Nitrogen 20 mg/dL (9-16); Calcium 9.8 mg/dL (8.4-10.2); Carbon Dioxide 27 mmol/L (22-29); Chloride 100 mmol/L (96-108); Estimated Glomerular Filt Rate 55; Glucose Random 107 mg/dL (60-115); Potassium 5.2 mmol/L (3.3-5.1); Sodium 136 mmol/L (135-145)
[2023-08-13 10:22] LABS: B Type Natriuretic Peptide 72 pg/mL (<100)
== END 2023-08-13 09:25 | disposition home or self-care (01) ==
LOC: HO.LAB 09:24
PROVIDERS: Visit Provider Internal Medicine
DX: I50.42 Chronic combined systolic (congestive) and diastolic (congestive) heart failure (principal)
CPT/HCPCS: 36415; 80048; 83880

== ENCOUNTER 2024-01-19 15:21 | Outpatient (AMB) | payer MEDICARE, SELFPAY ==
--- NOTE | 2024-01-19 15:23 | MHC.OFFVIS ---
Vital Signs 01/19/24 15:24 Height 5 ft 2 in Weight 126 lb 1.671 oz BMI 23.1 BP 144/70 H Blood Pressure Location Lt brachial Position Sitting Pulse 73 Pulse Source Pulse Oximeter Intake Visit Reasons: 6 month follow up [employer] Required: No Accompanied by: Daughter Allergies No Known Allergies Allergy (Verified 07/22/23 14:56) Medication List - Last Reconciled 01/19/24 by Luis Carranza MD furosemide (Lasix) 40 mg (2 x 20 mg) PO DAILY 90 days metoprolol succinate ER 25 mg PO DAILY sacubitril-valsartan 24-26 mg (Entresto) 1 tab PO BID 90 days spironolactone 25 mg PO DAILY HPI Comments Details: Stephanie returns for follow-up regarding cardiomyopathy. To recall, she had a hospitalization for acute congestive heart failure. Echocardiogram then with severe LV dysfunction. She also had left bundle-branch block on the EKG. Since that time, she has been on guideline based medical therapy. Since last seen, she is actually doing quite good. No complaints like angina or shortness of breath or in fact anything cardiac sounding. Getting along fine. [facility]LY [facility], [facility] Medical History (Updated 10/07/22 @ 14:17 by Luis Carranza MD) LBBB (left bundle branch block) Pleural effusion HTN (hypertension) Congestive cardiac failure Family History Father No problems noted. Mother No problems noted. Social History Household Members: None Housing: House Do you presently have visiting nurse or other home services: No Alcohol intake: never Patient Tobacco Use Status: Never used Tobacco e-Cigarette/Vaping Use: Never Used Second Hand Smoke Exposure: No service: No Current occupational status: retired Review of Systems Const Denies chills, Denies fatigue, Denies fever(s), Denies weight gain and Denies weight loss ENT Denies dizziness Card Denies chest pain, Denies leg edema, Denies lightheadedness, Denies palpitations, Denies dyspnea on exertion, Denies orthopnea and Denies other Resp Denies cough and Denies dyspnea on exertion GI Denies hematochezia and Denies change in stool character Musc Denies abnormal gait, Denies muscle weakness, Denies numbness, Denies radiating pain into limb and Denies tingling Neuro Denies abnormal gait, Denies dizziness, Denies numbness and Denies tingling Endo Denies fatigue and Denies palpitations Physical Exam Vital Signs: Last Vital Signs Pulse 73 01/19/24 15:24 BP 144/70 H 01/19/24 15:24 BMI result Body Mass Index 23.1 Const General: comfortable and no acute distress Orientation/consciousness: patient oriented x3 HEENT Other: Unremarkable Head: Yes normal to inspection Neck Neck: Yes normal visual inspection Chest Chest palpation & inspection: normal inspection of the chest Resp Auscultation: clear to auscultation bilaterally Cardio Palpation: normal PMI Heart sounds: S1 normal heart sound present, S2 normal heart sound present, no gallops, no murmurs and no rubs GI Palpation (GI): Soft to palpation Back/Spine/Pelvis Other: unremarkable Skin General skin exam: no rashes or lesions noted Neuro General: patient oriented x3 Extrem General: Yes normal to inspection Psych Mental Status: mental status grossly normal Assessment & Plan Assessment & Plan (1) Chronic combined systolic and diastolic CHF (congestive heart failure): Code(s): I50.42 - Chronic combined systolic (congestive) and diastolic (congestive) heart failure Category: Medical (2) LBBB (left bundle branch block): Code(s): I44.7 - Left bundle-branch block, unspecified Category: Medical (3) HTN (hypertension): Code(s): I10 - Essential (primary) hypertension Category: Medical Plan EKG shows sinus rhythm with left bundle-branch block pattern. In the most recent echocardiogram, LVEF 30-35%. This is improved from prior study where LVEF was 15-20%. With regard to medications, on carvedilol, Entresto, spironolactone and Lasix. Last potassium was slightly high. She believes she had follow-up labs with her own PCP. May need to get those. If not, repeat BNP. Discussed about that today. Otherwise, she does not want any further medications and hence not adding Jardiance or Farxiga. We have discussed about that in the past and today. Blood pressure is slightly high today but daughter states it is because of anxiety. Home blood pressures are only in the 120s. She wants conservative care only and hence holding off any ischemia workup. Discussed with daughter. Follow-up 6 months. Coding Level of Care Code Est Pt Level 4 (42112) Diagnoses Chronic combined systolic and diastolic CHF (congestive heart failure) I50.42 LBBB (left bundle branch block) I44.7 HTN (hypertension) I10
[2024-01-19 15:24] VITALS: BP 144/70; PULSE 73; BMI 23.1
== END 2024-01-19 15:42 | disposition home or self-care (01) ==
PROVIDERS: PCP Internal Medicine; Visit Provider Internal Medicine
DX: I50.42 Chronic combined systolic (congestive) and diastolic (congestive) heart failure (principal); I44.7 Left bundle-branch block, unspecified; I10 Essential (primary) hypertension
CPT/HCPCS: 99214

== ENCOUNTER → 2024-01-19 15:21 | Outpatient (BNVA) | payer MEDICARE, SELFPAY | PROVIDERS: PCP Internal Medicine; Visit Provider Internal Medicine | DX: I11.0 Hypertensive heart disease with heart failure (principal); I50.42 Chronic combined systolic (congestive) and diastolic (congestive) heart failure; I44.7 Left bundle-branch block, unspecified; Z79.899 Other long term (current) drug therapy | CPT/HCPCS: 99212 ==

== ENCOUNTER 2024-07-20 13:25 | Outpatient (AMB) | payer MEDICARE, SELFPAY ==
--- NOTE | 2024-07-20 13:42 | MHC.OFFVIS ---
Vital Signs 07/20/24 13:43 Height 5 ft 2 in Weight 127 lb 13.89 oz BMI 23.4 BP 120/62 Blood Pressure Location Lt brachial Position Sitting Pulse 70 Pulse Source Pulse Oximeter Intake Visit Reasons: 1 yr f/up Allergies No Known Allergies Allergy (Verified 07/22/23 14:56) Medication List - Last Reconciled 07/20/24 by Luis Carranza MD furosemide (Lasix) 20 mg PO DAILY metoprolol succinate ER 25 mg PO DAILY sacubitril-valsartan 24-26 mg (Entresto) 1 tab PO BID 90 days spironolactone 25 mg PO DAILY HPI Comments Details: Stephanie returns for follow-up regarding cardiomyopathy. To recall, in 2022, she had a hospitalization for acute congestive heart failure. Echocardiogram then with severe LV dysfunction. She also had left bundle-branch block on the EKG. Since that time, she has been on guideline based medical therapy. Overall, feeling good. No cardiac symptoms whatsoever. [facility] Medical History (Updated 10/07/22 @ 14:17 by Luis Carranza MD) LBBB (left bundle branch block) Pleural effusion HTN (hypertension) Congestive cardiac failure Family History Father No problems noted. Mother No problems noted. Social History Household Members: None Housing: House Do you presently have visiting nurse or other home services: No Alcohol intake: never Patient Tobacco Use Status: Never used Tobacco e-Cigarette/Vaping Use: Never Used Second Hand Smoke Exposure: No service: No Current occupational status: retired Review of Systems Const Denies weakness ENT Denies dizziness Card Denies chest pain, Denies chest pain with activity, Denies syncope, Denies rapid heart rate, Denies pedal edema, Denies edema, Denies leg edema, Denies lightheadedness, Denies palpitations, Denies dyspnea, Denies dyspnea on exertion and Denies orthopnea Resp Denies cough, Denies dyspnea and Denies dyspnea on exertion GI Denies hematochezia and Denies change in stool character Musc Denies abnormal gait, Denies muscle cramps, Denies muscle weakness, Denies numbness, Denies radiating pain into limb and Denies tingling Neuro Denies abnormal gait, Denies dizziness, Denies syncope, Denies numbness, Denies tingling and Denies weakness Endo Denies palpitations Physical Exam Vital Signs: Last Vital Signs Pulse 70 07/20/24 13:43 BP 120/62 07/20/24 13:43 BMI result Body Mass Index 23.4 Const General: comfortable and no acute distress Orientation/consciousness: patient oriented x3 HEENT Other: Unremarkable Head: Yes normal to inspection Neck Neck: Yes normal visual inspection Chest Chest palpation & inspection: normal inspection of the chest Resp Auscultation: clear to auscultation bilaterally Cardio Palpation: normal PMI Heart sounds: S1 normal heart sound present, S2 normal heart sound present, no gallops, no murmurs and no rubs GI Palpation (GI): Soft to palpation Back/Spine/Pelvis Other: unremarkable Skin General skin exam: no rashes or lesions noted Neuro General: patient oriented x3 Extrem General: Yes normal to inspection Psych Mental Status: mental status grossly normal Assessment & Plan Assessment & Plan (1) Chronic combined systolic and diastolic CHF (congestive heart failure): Code(s): I50.42 - Chronic combined systolic (congestive) and diastolic (congestive) heart failure Category: Medical (2) LBBB (left bundle branch block): Code(s): I44.7 - Left bundle-branch block, unspecified Category: Medical (3) HTN (hypertension): Code(s): I10 - Essential (primary) hypertension Category: Medical Plan EKG shows sinus rhythm/left bundle-branch block pattern. In the last echocardiogram, LVEF 30-35%. This is improved from prior study where LVEF was 15-20%. With regard to medications, on metoprolol, Entresto, spironolactone and Lasix. Need to repeated labs. She has had slightly increased potassium in the past. Does not want anything else in terms of medications like Farxiga or Jardiance. She wants conservative care only and hence holding off any ischemia workup. Orders: Orders Basic Metabolic Panel Today I50.42 - Chronic combined systolic (congestive) and diastolic (congestive) heart failure Medications: Changed From furosemide (Lasix) 40 mg (2 x 20 mg) PO DAILY 90 days 180 tabs 3RF To furosemide (Lasix) 20 mg PO DAILY Coding Level of Care Code Est Pt Level 4 (39101) Diagnoses Chronic combined systolic and diastolic CHF (congestive heart failure) I50.42 LBBB (left bundle branch block) I44.7 HTN (hypertension) I10
[2024-07-20 13:43] VITALS: BP 120/62; PULSE 70; BMI 23.4
--- OUTSIDE RECORDS SUMMARY | 2024-07-20 15:35 | XMS_ITS | Data Portability ---
Author Organization [facility] Home Service Address [address] [place] [address] Assessment No assessment recorded. Plan of Treatment Reminders Order Date Submit Date Provider Last Modified By Organization Details Last Modified Time Details Appointments ANNUAL EXAM 2024 02:15P MATEUS OJEDA Not available Not available Not available Lab TSH + free T4, serum 2022 023 [facility], [address] [place] [address], [id number], 12/29/2022 16:30:43 thyroid peroxidas e (tpo) Ab, serum 2022 023 [facility], [address] [place] [address], [id number], 12/29/2022 16:30:42 thyroglob ulin Ab, serum 2022 023 [facility], [address] [place] [address], [id number], 01/07/2023 12:20:11 thyrotrop in, QN, serum or plasma 2022 023 [facility], [address] [place] [address], [id number], 01/21/2023 08:31:31 ESR (erythroc yte sedimenta tion rate), blood 2022 023 [facility], [address] [place] [address], [id number], 12/29/2022 16:30:43 C-reactiv e protein, qualitati ve, serum 2022 023 [facility], [address] [place] [address], [id number], 12/29/2022 16:30:42 CBC w/ auto diff 2022 023 [facility], [address] [place] [address], [id number], 01/06/2023 13:46:04 CMP, serum or plasma 2022 023 [facility], [address] [place] [address], [id number], 01/06/2023 14:21:31 CMP, serum or plasma 2023 024 [facility], [address] [place] [address], [id number], 08/04/2023 15:52:55 lipid panel, serum 2023 024 [facility], [address] [place] [address], [id number], 09/16/2023 13:08:23 CBC w/ auto diff 2023 024 [facility], [address] [place] [address], [id number], 09/16/2023 12:33:11 hemoglobi n A1c, QN, blood 2023 024 [facility], [address] [place] [address], [id number], 09/16/2023 13:44:11 TSH + free T4, serum 2023 024 [facility], [address] [place] [address], [id number], 08/04/2023 15:52:55 Referral None recorded. Procedures None recorded. Surgeries None recorded. Imaging None recorded. Medication Orders losartan 25 mg tablet 2022 023 [facility], [address] [place], [id number], 09/17/2022 15:21:07 Entresto 24 mg-26 mg tablet 2022 023 [facility] [address] [place], [id number], 12/29/2022 16:21:03 furosemid e 40 mg tablet 2022 023 [facility] [address] [place], [id number], 12/29/2022 16:21:03 metoprolo l succinate ER 25 mg tablet,ex tended release 24 hr 2022 023 [facility] [address] [place], [id number], 12/29/2022 16:21:01 Patient TargetsNo targets recorded. Patient InstructionsNo instructions recorded. Reason for Referral None Reported. Results Created Date Observation Date Name Description Value Unit Range Abnormal Flag Note LastModifiedBy Organization Detail LastModifiedTime Result Notes None recorded. 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 Not Available [facility] 2 14:43:35 Essential hypertens ion 82213223 Active 2022 MATEUS HAWLEY [address] [place], [address], [facility] 3 12:16:00 Acute bronchiti s 55438943 Active 2022 MATEUS HAWLEY [address] [place], [address], [facility] 3 11:47:54 Congestiv e heart failure 48717024 Active 2022 MATEUS HAWLEY [address] [place], [address], [facility] 3 15:31:11 Disorder of thyroid gland 62554043 Active 2022 MATEUS HAWLEY [address] [place], [address], [facility] 3 16:21:05 Reactive lymphaden opathy 320356638 Active 2022 MATEUS HAWLEY [address] [place], [address], [facility] 3 16:22:23 Bilateral hip joint pain 210387021324 16153 Active 2023 MATEUS HAWLEY [address] [place], [address], [facility] 4 11:16:07 Problem Notes None recorded. Medical Equipment None Reported. Allergies No known drug allergies Medications Name Sig Start Date Stop Date Status Note LastModified by Organization Details LastModified Time furosemide 40 mg tablet TAKE 1 TABLET BY MOUTH EVERY DAY active Not Available Not Available No t Available azithromycin 250 mg tablet TAKE 2 TABLETS BY MOUTH TODAY, THEN TAKE 1 TABLET DAILY FOR 4 DAYS 09/17 completed Not Available Not Available Not Available spironolacto ne 25 mg tablet TAKE 1 TABLET BY MOUTH EVERY DAY active Not Available Not Available No t Available valsartan 80 mg-hydrochlo rothiazide 12.5 mg tablet 10/22 completed Not Available Not Available Not Available losartan 25 mg tablet TAKE 1 TABLET BY MOUTH EVERY DAY 09/17 completed Not Available Not Available Not Available metoprolol succinate ER 25 mg tablet,exten ded release 24 hr TAKE 1 TABLET BY MOUTH EVERY DAY active Not Available Not Available No t Available losartan 50 mg-hydrochlo rothiazide 12.5 mg tablet TAKE 1 TABLET BY MOUTH EVERY DAY active Not Available Not Available No t Available metoprolol tartrate 25 mg tablet Take 1 tablet every day by oral route. 12/29 completed Not Available Not Available Not Available calcium 1000 mg once a day 04/15 completed Not Available Not Available Not Available Entresto 24 mg-26 mg tablet TAKE 1 TAB BY MOUTH TWICE DAILY active Not Available Not Available No t Available Fluzone High-Dose 2019-20 (PF) 180 mcg/0.5 mL intramuscula r syringe 05/29 completed Not Available Not Available Not Available Vitals Date Recorded Body height Body mass index (BMI) Body weight Heart rate Oxygen saturation Oxygen saturation in Arterial blood by Pulse oximetry Systolic blood pressure Diastolic blood pressure Provider Name and Address Organization Details Last Updated DateTime 3 156.85 cm 24.6 kg/m2 97125.5 8 g 95 /min 99 % 99 % 132 mm[Hg] 70 mm[Hg] MATEUS HAWLEY [address] [place], [address] [place] [address] [facility] 3 11:58:01 Date Recorded Body height Body mass index (BMI) Body weight Heart rate Oxygen saturation Oxygen saturation in Arterial blood by Pulse oximetry Systolic blood pressure Diastolic blood pressure Provider Name and Address Organization Details Last Updated DateTime 3 156.85 cm 22.5 kg/m2 84564.2 7 g 73 /min 98 % 98 % 138 mm[Hg] 70 mm[Hg] Beth Singh [facility] 3 15:06:29 Date Recorded Body height Body mass index (BMI) Body weight Heart rate Oxygen saturation Oxygen saturation in Arterial blood by Pulse oximetry Systolic blood pressure Diastolic blood pressure Provider Name and Address Organization Details Last Updated DateTime 3 156.85 cm 22.5 kg/m2 23392.2 7 g 65 /min 98 % 98 % 122 mm[Hg] 60 mm[Hg] Beth Singh [facility] 3 16:00:11 Date Recorded Body height Body mass index (BMI) Body weight Heart rate Oxygen saturation Oxygen saturation in Arterial blood by Pulse oximetry Systolic blood pressure Diastolic blood pressure Provider Name and Address Organization Details Last Updated DateTime 4 156.85 cm 22.5 kg/m2 63835.2 7 g 70 /min 98 % 98 % 138 mm[Hg] 68 mm[Hg] Beth Figueroamond [facility] 4 15:36:49 Date Recorded Body height Body mass index (BMI) Body weight Heart rate Oxygen saturation Oxygen saturation in Arterial blood by Pulse oximetry Systolic blood pressure Diastolic blood pressure Provider Name and Address Organization Details Last Updated DateTime 4 156.85 cm 23.2 kg/m2 81149.6 4 g 77 /min 98 % 98 % 126 mm[Hg] 78 mm[Hg] Violeta Huertas [facility] 4 10:51:21 Social History Question Answer Notes LastModified by Organizat ion Details LastModified Time Tobacco Smoking Status Never Smoker Not Available [facility] 05/01/2020 03:36:23 What Was The Date Of Your Most Recent Tobacco Screening? 04/15/2024 [email or web address] Information not available 04/15/2024 Do You Or Have You Ever Used Any Other Forms Of Tobacco Or Nicotine? No [email or web address] Information not available 07/10/2022 Sex: Unknown Functional Status None recorded. Mental Status None recorded. Family History Nothing Reported. Medical History No medical history recorded. Gynecological HistoryNo gynecological history recorded. Obstetrics History GPAL:G 0 P 0 0 0 0 Immunizations Vaccine Type Date Status Note Provider Nam e and Address Organization Details Recorded Time Influenza, split virus, quadrivalent, preservative 1 completed Renzo Taylor DO [address] [place] [address], [address], [facility] 05/16/2021 18:38:13 zoster, unspecified formulation 1 completed Renzo Taylor DO [address] [place] [address], [address], [facility] 05/16/2021 18:38:28 zoster recombinant 2 completed Mili winchester [facility] 07/26/2021 14:47:53 Influenza, adjuvanted, trivalent, PF 8 completed [facility] 04/[facility] 10:58:00 Influenza, split virus, quadrivalent, preservative 0 completed Renzo Marie Taylor DO [address] [place] [address], [address], [facility] Internal [facility] 06/02/2020 15:54:29 Pneumococcal conjugate PCV 13 0 completed Renzo Taylor DO [address] [place] [address], [address], [facility] 06/02/2020 15:54:45 Pneumococcal conjugate PCV 13 0 completed Renzo Marie Taylor DO [address] [place] [address], [address], [facility] 06/02/2020 15:55:55 Past Encounters Encounter ID Performer Location Encounter Start Date Encounter Closed Date Diagnosis/Indication Diagnosis SNOMED-CT Code Diagnosis ICD10 Code Diagnosis Note [id number] Renzo Taylor [facility] [address] [place] [address],[place] [address] 10/22/2018 11:09:36 10/22/2018 12:04:39 Hypertensive disorder 58525161 I10 home readings are excellent exercises daily walks too is active with fam and is always reading too [id number] Renzo Taylor DO [facility] [address] [place], [place] [address] [address] 09/19/2019 13:50:36 10/03/2019 09:19:40 Hypertensive disorder 10454202 I10 home readings are excellent exercises daily walks too is active with fam and is always reading too Osteopenia 702288471 M85 .80 WILL NEED TO FOLLOW HER AND SEE THAT SHE REMAINS STABLE WILL [place] SEEING HER [place] [address] [place] [id number] MATEUS HAWLEY [facility] [address] [place] [address],[place] [address] 05/28/2020 13:26:19 05/28/2020 16:09:37 Adult health examination 914573374 Z00.00 BP elevated, but lower than last visit HR elevated, pt is anxious today at exam will continue to monitor Screening for cardiovascular system disease 218415500 Z13.6 will check BP, no hx bw in system [id number] MATEUS HAWLEY [facility] [address] [facility] [address],[place] [address] 05/29/2021 13:21:07 05/31/2021 14:44:26 Active or passive immunization 931974430 Z23 advised Adult heal th examination 436883348 Z00.00 BP elevated, but lower than last visit HR elevated, pt is anxious today at exam will continue to monitornum bers are good at home Hypertensive disorder 38 844541 I10 needs refill [id number] MATEUS HAWLEY [facility] [address] [facility] [address] [place] [place] [address] 07/10/2022 11:52:49 07/10/2022 12:23:17 Active or passive immunization 629332139 Z23 patient advised she is due for tdap, pneu 23 & flu shot Adult heal th examination 464163621 Z00.00 BP fine today Advance care planning 71 7056046 Z71.89 advised Essential hypertension 87271078 I10 will increase her dosage up with an additional 25 mg for her BP control so she doesn't get the highs she is talking about [id number] MATESU HAWLEY [facility] [address] [facility] [address],[place] [address] 09/17/2022 14:58:10 09/19/2022 08:50:17 Congestive heart failure 40457026 I50.21 doing really well [id number] MATEUS HAWLEY [facility] [address] [facility] [address],[place] [address] 12/29/2022 15:53:45 12/29/2022 16:35:05 Congestive heart failure 24439112 I50.9 doing really well Disorder o f thyroid gland 51972694 E07.89 would like her thyroid checked Reactive lymphadenopathy 797585181 R59.1 agreed to extra lab work [id number] MATEUS HAWLEY [facility] [address] [facility] [address],[place] [address] 08/04/2023 15:32:34 08/05/2023 16:19:42 Congestive heart failure 88633804 I50.22 doing really wellno issues Adult heal th examination 309739915 Z00.00 BP fine today with first check Congestive heart failure 51245312 I50.21 doing really well [id number] MATEUS HAWLEY [facility] [address],[place] [address] 04/15/2024 10:35:56 04/15/2024 11:22:37 Essential hypertension 07299103 I10 will increase her dosage up with an additional 25 mg for her BP control so she doesn't get the highs she is talking about Bilateral hip joint pain 2864116999 7739913 M25.552 improved Health Concerns Section Related Observation LastModified by Organization Detai ls LastModified Time None Recorded Concern Status LastModified by Organization Details LastModified Time None Recorded Advance Directives Directive None Recorded Payers Encounter Date Sequence Insurance Name Policy Number Policy Donohue Covered Member ID Donohue Member ID Guarantor Name 07/10/2022 1 [facility] - MEDICARE PREFERRED (MEDICARE REPLACEMENT HMO) [employer] Pearl Maldonado [id number] 1 Pearl Maldonado 09/17/2022 1 [facility] - MEDICARE PREFERRED (MEDICARE REPLACEMENT HMO) [employer] Pearl Maldonado [id number] 1 Pearl Maldonado 12/29/2022 1 [facility] - MEDICARE PREFERRED (MEDICARE REPLACEMENT HMO) [employer] Pearlhuseyin Maldonado [id number] Pearl Maldonado 08/04/2023 1 [facility] - MEDICARE PREFERRED (MEDICARE REPLACEMENT HMO) [employer] Pearl Maldonado [id number] 1 Pearl Maldonado 04/15/2024 1 [facility] - MEDICARE PREFERRED (MEDICARE REPLACEMENT HMO) [employer] Pearl Maldonado [id number] 1 Pearl Maldonado Notes Date Note Type Note Provider Name and Address Organization Details Recorded Time 3 text/html Annual WellnessReported bypatient.Diet and Nutrition:healthy diet; discussed vitamin and supplement use; discussed portion control; discussed maintaining calcium balance; discussed diet improvement Fracture Risk:no history of fractures; no recent explained fracture; no sudden unexplained fractures; no previous musculoskeletal injuries Physical Activity:exercises on a regular basis; recent increase in physical activity; good physical condition Additional Lifestyle Factors:no tobacco use; no alcohol intake Depression Risk:never feels sad, empty, or tearful; no loss of interest in activities; no significant changes in weight; no sleep disturbances or insomnia; no agitation; no loss of energy; no feelings of worthlessness or guilt; no thoughts of suicide; no history of depression; no history of mood disorders Hearing:no loss of hearing; last eye exam was great told her vision was better at recent exam Vision:no vision problems MATEUS HAWLEY [address] [place], [address], [facility] 07/10/2022 12:26:18 3 text/html Hospital F/U the patient was admitted to the hospital after she was found to be in acute onset heart failure (new diagnosis)the patient had been sick a few weeks prior which she recovered fromthe patient was very short of breath; ended up going to the ERhad a significantly reduced EF from 15-20%the patient was admitted for observationstarted on IV lasix and had a thoracentesis was done and a liter of fluid was taken off of her d/c on entersto, furosemide, and metoprolol was adjustedthe patient will be seeing cardiology soon for a checkwill be getting another US echo to recheck her EF to see if it jenelle up again the patient and I discussed what heart failure is and what it meansthe patient is otherwise doing really wellthe patient is okay on refills on for nowwill see if enterstro is needed due to [place] for patient weights have been stable been 121 to 122 pounds MATEUS HAWLEY [address] [place], [address], [facility] 09/17/2022 15:33:49 3 text/html c/o thyroid issues the patient reports that she noticed a few weeks ago she had swelling of her throat (around her throat, her thyroid specifically)resolved on its ownpossible allergies or reaction to the smoke the patient would like her thyroid checkedI will also check her inflammatory markers and a CBC to see if she had an infection no other concerns today MATEUS HAWLEY [address] [place], [address], [facility] 12/29/2022 16:31:36 4 text/html Annual WellnessReported bypatient.Diet and Nutrition:discussed vitamin and supplement use; discussed portion control; discussed maintaining calcium balance; discussed diet improvement Fracture Risk:no history of fractures; no recent explained fracture; no sudden unexplained fractures; no previous musculoskeletal injuries Physical Activity:exercises on a regular basis; recent increase in physical activity; good physical condition Additional Lifestyle Factors:no tobacco use; no alcohol intake Depression Risk:never feels sad, empty, or tearful; no loss of interest in activities; no significant changes in weight; no sleep disturbances or insomnia; no agitation; no loss of energy; no feelings of worthlessness or guilt; no thoughts of suicide; no history of depression; no history of mood disorders Hearing:no loss of hearing Vision:no vision problems BP isn't bad todaya little anxious because her granddaughter drove her the patient reports that she is doing well [id number] puts things down and forgets, but nothing concerningno behavioral changes either bowel habits normalno sleep distrubances no falls, no broken bones MATEUS HAWLEY [address] [place], [address], [facility] 08/04/2023 15:56:46 4 text/html f/u hip pain, UC f/u the patient reports that she was having issues with left hipUC took X/R's and 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
== END 2024-07-20 14:01 | disposition home or self-care (01) ==
PROVIDERS: PCP Internal Medicine; Visit Provider Internal Medicine
DX: I50.42 Chronic combined systolic (congestive) and diastolic (congestive) heart failure (principal); I44.7 Left bundle-branch block, unspecified; I10 Essential (primary) hypertension
CPT/HCPCS: 99214

== ENCOUNTER → 2024-07-20 13:25 | Outpatient (BNVA) | payer MEDICARE, SELFPAY | PROVIDERS: PCP Internal Medicine; Visit Provider Internal Medicine | DX: I50.42 Chronic combined systolic (congestive) and diastolic (congestive) heart failure (principal); I44.7 Left bundle-branch block, unspecified; I10 Essential (primary) hypertension | CPT/HCPCS: 99212 ==

== ENCOUNTER 2024-09-02 10:50 | Outpatient (REF) | payer MEDICARE, SELFPAY ==
--- OUTSIDE RECORDS SUMMARY | 2024-09-02 12:24 | XMS_ITS | Data Portability ---
Author Organization [facility] Address [address] [place] [address] Assessment No assessment recorded. Plan of Treatment Reminders Order Date Submit Date Provider Last Modified By Organization Details Last Modified Time Details Appointments ANNUAL EXAM 2024 03:30P M MATEUS HAWLEY Not available Not available Not available Lab CMP, serum or plasma 2023 024 [facility], [address] [place] [address], [id number], 08/04/2023 15:52:55 lipid panel, serum 2023 024 [facility], [address] [place] [address], [id number], 09/16/2023 13:08:23 CBC w/ auto diff 2023 024 [facility], [address] [place] [address], [id number], 09/16/2023 12:33:11 hemoglobi n A1c, QN, blood 2023 024 [facility], [address] [place] [address], [id number], 09/16/2023 13:44:11 TSH + free T4, serum 2023 024 [facility], [address] [place] [address], [id number], 08/04/2023 15:52:55 TSH + free T4, serum 2022 023 [facility], [address] [place] [address], [id number], 12/29/2022 16:30:43 thyroid peroxidas e (tpo) Ab, serum 2022 023 [facility], [address] [place] [address], [id number], 12/29/2022 16:30:42 thyroglob ulin Ab, serum 2022 023 [facility], [address] [place] [address], [id number], 01/07/2023 12:20:11 thyrotrop in, QN, serum or plasma 2022 023 [facility], [address] [place] [address], [id number], 01/21/2023 08:31:31 ESR (erythroc yte sedimenta tion rate), blood 2022 023 [facility], [address] [place] [address], [id number], 12/29/2022 16:30:43 C-reactiv e protein, qualitati ve, serum 2022 023 [facility], [address] [place] [address], [id number], 12/29/2022 16:30:42 CBC w/ auto diff 2022 023 [facility], [address] [place] [address], [id number], 01/06/2023 13:46:04 CMP, serum or plasma 2022 023 [facility], [address] [place] [address], [id number], 01/06/2023 14:21:31 Referral None recorded. Procedures None recorded. Surgeries None recorded. Imaging None recorded. Medication Orders Entresto 24 mg-26 mg tablet 2022 023 [facility], [address] [place], [address], 12/29/2022 16:21:03 furosemid e 40 mg tablet 2022 023 [facility], [address] [place], [address], 12/29/2022 16:21:03 metoprolo l succinate ER 25 mg tablet,ex tended release 24 hr 2022 023 [facility], [address] [place], [address], 12/29/2022 16:21:01 losartan 25 mg tablet 2022 023 [facility] [address] [place], [address], 09/17/2022 15:21:07 Patient TargetsNo targets recorded. Patient InstructionsNo instructions recorded. Reason for Referral None Reported. Results Created Date Observation Date Name Description Value Unit Range Abnormal Flag Note LastModifiedBy Organization Detail LastModifiedTime Result Notes None recorded. 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 Not Available [facility] 2 14:43:35 Essential hypertens ion 88466381 Active 2022 MATEUS HAWLEY [address] [place], [address], [facility] 3 12:16:00 Acute bronchiti s 90815114 Active 2022 MATEUS HAWLEY [address] [place], [address], [facility] 3 11:47:54 Congestiv e heart failure 41950987 Active 2022 MATEUS HAWLEY [address] [place], [address], [facility] 3 15:31:11 Disorder of thyroid gland 53388984 Active 2022 MATEUS HAWLEY [address] [place], [address], [facility] 3 16:21:05 Reactive lymphaden opathy 508844239 Active 2022 MATEUS HAWLEY [address] [place], [address], [facility] 3 16:22:23 Bilateral hip joint pain 567775259317 17516 Active 2023 MATEUS HAWLEY [address] [place], [address], [facility] 4 11:16:07 Problem Notes None [...] Updated DateTime 3 156.85 cm 24.6 kg/m2 36530.5 8 g 95 /min 99 % 99 % 132 mm[Hg] 70 mm[Hg] MATEUS HAWLEY [address] [place], [address] [place] [address] Internal Medicine 3 11:58:01 Date Recorded Body height Body mass index (BMI) Body weight Heart rate Oxygen saturation Oxygen saturation in Arterial blood by Pulse oximetry Systolic blood pressure Diastolic blood pressure Provider Name and Address Organization Details Last Updated DateTime 3 156.85 cm 22.5 kg/m2 08936.2 7 g 73 /min 98 % 98 % 138 mm[Hg] 70 mm[Hg] Beth Singh [facility] 3 15:06:29 Date Recorded Body height Body mass index (BMI) Body weight Heart rate Oxygen saturation Oxygen saturation in Arterial blood by Pulse oximetry Systolic blood pressure Diastolic blood pressure Provider Name and Address Organization Details Last Updated DateTime 3 156.85 cm 22.5 kg/m2 74848.2 7 g 65 /min 98 % 98 % 122 mm[Hg] 60 mm[Hg] Beth Singh [facility] 3 16:00:11 Date Recorded Body height Body mass index (BMI) Body weight Heart rate Oxygen saturation Oxygen saturation in Arterial blood by Pulse oximetry Systolic blood pressure Diastolic blood pressure Provider Name and Address Organization Details Last Updated DateTime 4 156.85 cm 22.5 kg/m2 75403.2 7 g 70 /min 98 % 98 % 138 mm[Hg] 68 mm[Hg] Beth Figueroamond [facility] 4 15:36:49 Date Recorded Body height Body mass index (BMI) Body weight Heart rate Oxygen saturation Oxygen saturation in Arterial blood by Pulse oximetry Systolic blood pressure Diastolic blood pressure Provider Name and Address Organization Details Last Updated DateTime 4 156.85 cm 23.2 kg/m2 00468.6 4 g 77 /min 98 % 98 % 126 mm[Hg] 78 mm[Hg] Violeta Huertas [facility] 4 10:51:21 Social History Question Answer Notes LastModified by Organizat ion Details LastModified Time Tobacco Smoking Status Never Smoker Not Available [facility] 05/01/2020 03:36:23 What Was The Date Of [...] quadrivalent, preservative 1 completed Renzo Taylor DO [address] [place] [address], [address], [facility] 05/16/2021 18:38:13 zoster, unspecified formulation 1 completed Renzo Taylor DO [address] [place] [address], [address], [facility] 05/16/2021 18:38:28 zoster recombinant 2 completed Mili winchester [facility] 07/26/2021 14:47:53 Influenza, adjuvanted, trivalent, PF 8 completed [facility] 10:58:00 Influenza, split virus, quadrivalent, preservative 0 completed Renzo Marie Taylor DO [address] [place] [address], [address], [facility] 06/02/2020 15:54:29 Pneumococcal conjugate PCV 13 0 completed Renzo Taylor DO [address] [place] [address], [address], [facility] 06/02/2020 15:54:45 Pneumococcal conjugate PCV 13 0 completed Renzo Marie Taylor DO [address] [place] [address], [address], [facility] 06/02/2020 15:55:55 Past Encounters Encounter ID Performer Location Encounter Start Date Encounter Closed Date Diagnosis/Indication Diagnosis SNOMED-CT Code Diagnosis ICD10 Code Diagnosis Note [id number] Renzo Taylor [facility] [address] [place] [address],[place] [address] 10/22/2018 11:09:36 10/22/2018 12:04:39 Hypertensive disorder 74542016 I10 home readings are excellent exercises daily walks too is active with fam and is always reading too [id number] Renzo Taylor DO [facility] [address] [place], [place] [address] [address] 09/19/2019 13:50:36 10/03/2019 09:19:40 Hypertensive disorder 86521390 I10 home readings are excellent exercises daily walks too is active with fam and is always reading too Osteopenia 612753888 M85 .80 WILL NEED TO FOLLOW HER AND SEE THAT SHE REMAINS STABLE WILL [place] SEEING HER [place] 6 [place] [id number] MATEUS HAWLEY [facility] [address] [place] [address],[place] [address] 05/28/2020 13:26:19 05/28/2020 16:09:37 Adult health examination 238945482 Z00.00 BP elevated, but lower than last visit HR elevated, pt is anxious today at exam will continue to monitor Screening for cardiovascular system disease 282494319 Z13.6 will check BP, no hx bw in system [id number] MATEUS HAWLEY [facility] [address] [facility] [address],[place] [address] 05/29/2021 13:21:07 05/31/2021 14:44:26 Active or passive immunization 821179994 Z23 advised Adult heal th examination 680205486 Z00.00 BP elevated, but lower than last visit HR elevated, pt is anxious today at exam will continue to monitornum bers are good at home Hypertensive disorder 38 131780 I10 needs refill [id number] MATEUS HAWLEY [facility] [address] [facility] [address],[place] [place] [address] 07/10/2022 11:52:49 07/10/2022 12:23:17 Active or passive immunization 173690388 Z23 patient advised she is due for tdap, pneu 23 & flu shot Adult heal th examination 119250030 Z00.00 BP fine today Advance care planning 71 2383649 Z71.89 advised Essential hypertension 11330457 I10 will increase her dosage up with an additional 25 mg for her BP control so she doesn't get the highs she is talking about [id number] MATEUS HAWLEY [facility] [address] [facility] [address],[place] [address] 09/17/2022 14:58:10 09/19/2022 08:50:17 Congestive heart failure 60723755 I50.21 doing really well [id number] MATEUS HAWLEY [facility] [address] [facility] [address],[place] [address] 12/29/2022 15:53:45 12/29/2022 16:35:05 Congestive heart failure 18440216 I50.9 doing really well Disorder o f thyroid gland 46392877 E07.89 would like her thyroid checked Reactive lymphadenopathy 899110948 R59.1 agreed to extra lab work [id number] MATEUS HAWLEY [facility] [address] [facility] [address],[place] [address] 08/04/2023 15:32:34 08/05/2023 16:19:42 Congestive heart failure 20888433 I50.22 doing really wellno issues Adult heal th examination 304282781 Z00.00 BP fine today with first check Congestive heart failure 05321452 I50.21 doing really well [id number] MATEUS HAWLEY [facility] [address],[place] [address] 04/15/2024 10:35:56 04/15/2024 11:22:37 Essential hypertension 04143226 I10 will increase her dosage up with an additional 25 mg for her BP control so she doesn't get the highs she is talking about Bilateral hip joint pain 4334528076 3353213 M25.552 improved Health Concerns Section Related Observation LastModified by Organization Detai ls LastModified Time None Recorded Concern Status LastModified by Organization Details LastModified Time None Recorded Advance Directives Directive None Recorded Payers Encounter Date Sequence Insurance Name Policy Number Policy Donohue Covered Member ID Donohue Member ID Guarantor Name 07/10/2022 1 [facility] - MEDICARE PREFERRED (MEDICARE REPLACEMENT HMO) [employer] Pearl Maldonado [id number] 1 Pearl Maldonado 09/17/2022 1 [facility] - MEDICARE PREFERRED (MEDICARE REPLACEMENT HMO) [employer] Pearl Maldonado [id number] 1 Pearl Maldonado 12/29/2022 1 [facility] - MEDICARE PREFERRED (MEDICARE REPLACEMENT HMO) [employer] Pearlhuseyin Maldonado [id number] 1 Pearl Maldonado 08/04/2023 1 [facility] - MEDICARE PREFERRED (MEDICARE REPLACEMENT HMO) [employer] Pearl Maldonado [id number] 1 Pearl Maldonado 04/15/2024 1 [facility] - MEDICARE PREFERRED (MEDICARE REPLACEMENT HMO) [employer] Pearl Maldonado [id number] 1 Pearl Maldonado Notes Date Note Type [...] exam Vision:no vision problems MATEUS HAWLEY [address] [place], [address], [facility] 07/10/2022 12:26:18 3 text/html Hospital [...] 121 to 122 pounds MATEUS HAWLEY [address] [place], [address], [facility] 09/17/2022 15:33:49 3 text/html c/o [...] no other concerns today MATEUS HAWLEY [address] [place], [address], [facility] 12/29/2022 16:31:36 4 text/html Annual [...] patient reports that she is doing well [id number] puts things down and forgets, but nothing concerningno behavioral changes either bowel habits normalno sleep distrubances no falls, no broken bones MATEUS HAWLEY [address] [place], [address], [facility] 08/04/2023 15:56:46 4 text/html f/u [...] on calcium and magnesium MATEUS HAWLEY [address] [place], [address], [facility] 04/15/2024 11:22:07 OBGyn Episode No OBEpisode recorded.
[2024-09-02 12:36] LABS: Anion Gap 12 (12-20); Blood Urea Nitrogen 21 mg/dL (9-16); Calcium 9.4 mg/dL (8.4-10.2); Carbon Dioxide 27 mmol/L (22-29); Chloride 105 mmol/L (96-108); Estimated Glomerular Filt Rate > 60; Glucose Random 91 mg/dL (60-115); Potassium 4.2 mmol/L (3.3-5.1); Sodium 140 mmol/L (135-145)
== END 2024-09-02 10:51 | disposition home or self-care (01) ==
LOC: HO.LAB 10:50
PROVIDERS: PCP Physician Assistant; Visit Provider Internal Medicine
DX: I50.42 Chronic combined systolic (congestive) and diastolic (congestive) heart failure (principal)
CPT/HCPCS: 36415; 80048

== ENCOUNTER 2025-03-29 12:04 | Outpatient (REF) | payer MEDICARE, SELFPAY ==
--- NOTE | ~2025-03-29 | XR_ITS ---
EXAMINATION: XR CHEST CLINICAL INFORMATION: COUGH COMPARISON: September 04, 2022. TECHNIQUE: PA and lateral views. FINDINGS: Pulmonary reticular pattern. No gross consolidation, pleural effusion or pneumothorax. Increased AP diameter and flattening of the diaphragm. Cardiomediastinal silhouette size is normal. Multilevel thoracolumbar spondylosis. S-shaped curvature of the thoracic spine. Osteopenia versus osteoporosis. Degenerative changes in the acromioclavicular joints. XR/XR chest 2V IMPRESSION: Chronic interstitial lung disease without acute airspace disease. Electronically signed by: Amos Bauer MD 03/29/2025 12:31 PM EDT
--- OUTSIDE RECORDS SUMMARY | 2025-03-29 13:33 | XMS_ITS | Clinical Summary ---
Author Organization [facility] Address [address] [place] [address] Phone Care Team Providers Care Corn Picker Name Role Phone Renzo Taylor Primary Care Provider [phone] Allergies No known active allergies Medications influenza trivalent , 65 yr+,, PF, (FLUZONE HIGH-DOSE , PF,) 180 mcg/0.5 mL IM syringe Fluzone High-Dose (PF) 180 mcg/0.5 mL intramuscular syringe Active furosemide (LASIX) 40 MG tablet Take 1 tablet by mouth every morning. 4 Active losartan-hydro CHLOROthiazide (HYZAAR) 50-12.5 mg per tablet losartan 50 mg-hydrochlorothi azide 12.5 mg tablet TAKE 1 TABLET BY MOUTH EVERY DAY NEEDS APPT FOR FURTHER REFILLS Active metoprolol succinate (TOPROL-XL) 25 MG 24 hr tablet Take 1 tablet by mouth every morning. 4 Active ENTRESTO 24-26 mg per tablet TAKE 1 TAB BY MOUTH TWICE DAILY 4 Active spironolactone (ALDACTONE) 25 MG tablet Take 1 tablet by mouth every morning. 4 Active CALCIUM 26-VIT D3-MAGNESIUM 15 ORAL calcium 1000 mg once a day Active Active Problems No known active problems Social History Tobacco Use Types Packs/Day Years Used Date Smoking Tobacco: Never Passive Smoke Exposure: Never Smokeless Tobacco: Never Education Answer Date Recorded Are you interested in more education? Not on tyron e 10/24/2022 Are you concerned about learning? Not on file 10/24/2022 No 10/24/2022 No 10/24/2022 Digital Access Answer Date Recorded No 11/24/2022 No 11/24/2022 Reliable internet access at home? Not on file 11/24/2022 Device with a working camera? Not on file Comments No Sex and Gender Information Value Date Recorded Sex Assigned at Not on file Legal Sex Female 10:14 PM EDT Gender Identity Not on file Sexual Orientation Not on file Last Filed Vital Signs Vital Sign Reading Time Taken Comments Blood Pressure 161/77 04/06/2024 4:17 PM EDT Pulse 80 04/06/2024 4:17 PM EDT Temperature 36.7 C (98.1 F) 04/06/2024 4:17 PM EDT Respiratory Rate 16 04/06/2024 4:17 PM EDT Oxygen Saturation 98% 04/06/2024 4:17 PM EDT Inhaled Oxygen Concentration - - Weight - - Height - - Body Mass Index - - Plan of Treatment Health Maintenance Due Date Last Done Comments Adult Td,Tdap Booster 1935 DEPRESSION SCREENING 1947 ZOSTER VACCINES (1 of 2) 1985 OSTEOPOROSIS SCREENING INITIAL (ONE-TIME) 2000 RSV VACCINE (1 - 1-dose 75+ series) 2010 CREATININE LEVEL 09/15/2024 09/16/2023, 04/2023, 02/21/2021 POTASSIUM LEVEL 09/15/2024 09/16/2023, 07/1 06/2022, 02/21/2021 INFLUENZA VACCINE (#1) 2025 , 06/06/2019, 04/25/2018, Additional history exists COVID-19 VACCINE ( - season) 2025 09/04/2020, 08/14/2020 PNEUMOCOCCAL VACCINES (50+ years) Completed 06/01/2020, 09/13/2015 HEPATITIS A VACCINES Aged Out No long er eligible based on patient's age to complete this topic HIB VACCINES Aged Out No longer eligi ble based on patient's age to complete this topic MENINGOCOCCAL VACCINES (ACWY) Aged Out No longer eligible based on patient's age to complete this topic MENINGOCOCCAL VACCINES (B) Aged Out N o longer eligible based on patient's age to complete this topic Medical Devices Not on file Procedures Procedure Name Priority Date/Time Associated Diagnosis Comments COMPREHENSIVE METABOLIC PANEL Routine 09/16/2023 8:39 AM EDT Routine general medical examination at a health care facility from Last 3 Months or Most Recently Relevant to Health Maintenance Results * (ABNORMAL) Comprehensive metabolic panel (09/16/2023 8:39 AM EDT) SODIUM 137 133 - 146 mmol/L [facility] POTASSIUM 5.0 3.3 - 5.1 mmol/L [facility] CHLORIDE 99 96 - 108 mmol/L [facility] CO2 27 21 - 35 mmol/L [facility] BUN 21(H) 6 - 19 mg/dL [facility] CREATININE 0.90 0.5 - 1.5 mg/dL [facility] GLUCOSE 118(H) 70 - 99 mg/dL [facility] ALBUMIN 4.6 3.9 - 4.8 g/dL [facility] TOTAL PROTEIN 7.6 6.5 - 8.0 g/dL [facility] CALCIUM 9.4 8.4 - 10.3 mg/dL [facility] ALKALINE PHOSPHATASE 105 39 - 117 U/L [facility] TOTAL BILIRUBIN 0.6 0.0 - 1.2 mg/dL [facility] AST 25 0 - 37 U/L [facility] ALT 14 0 - 40 U/L [facility] GLOBULIN 3.0 1 - 4.8 g/dL [facility] EGFR 61 >59 mL/min/1.7 3m2 [facility] Comment:Estimated glomerular filtration rate calculated using the CKD-EPI refit equation. ANION GAP 16 10 - 20 mmol/L [facility] Blood 09/16/2023 8:39 AM EDT 09/16/2023 8:42 AM EDT us Barb [facility] LAB BLOOD ORDERABLES Final Result [facility] [address] [place] [address] from Last 3 Months or Most Recently Relevant to Health Maintenance Insurance [employer] REPLACEMENT [employer] RE[employer]AC[employer]AC[employer]PLAC[employer]AC[employer] Care Teams Corn Picker Relationship Specialty Start Date End Date Renzo Taylor DO [email or web address] PCP - General 04/14/17 Additional Source Comments The information contained in this document represents components of the legal health record. It is not the complete legal health record.[facility]
--- OUTSIDE RECORDS SUMMARY | 2025-03-29 13:33 | XMS_ITS | Encounter Summary ---
Author Organization [facility] Address [address] [address] Phone Care Team Providers Care Manager Meat Name Role Phone Renzo Taylor DO Primary Care Provider [phone] Encounter Details Date Type Department Care Team ([facility] st Contact Info) Description 02/18/2018 Ancillary Orders Virtual Department [address] [place] [address] Renzo Taylor DO [address] [facility] [place] [address] [place] [address] [email or web address] Breast screening Social History Tobacco Use Types Packs/Day Years Used Date Smoking Tobacco: Never Assessed Comments Unknown Sex and Gender Information Value Date Recorded Sex Assigned at Not on file Legal Sex Female 10:14 PM EDT Gender Identity Not on file Sexual Orientation Not on file documented as of this encounter Plan of Treatment Not on file documented as of this encounter Results * BI MAMMOGRAM SCREENING WITH TOMOSYNTHESIS WITH CAD (BILATERAL) (03/23/2019 3:38 PM EDT) Anatomical Region Laterality Modality Breast Left, Breast Right, Breast Bilateral Bila teral Mammography 03/24/2019 10:0 9 AM EDT Impressions 03/24/2019 10:14 AM EDT No mammographic evidence of malignancy. Annual mammographic screening is recommended. Patients at this facility are entered into a reminder system for their next appointment. Density: The breast tissue is heterogeneously dense, an appearance which lowers the sensitivity of mammography. BI-RADS CATEGORY: 1 - Negative. POS - [id number] Narrative 03/24/2019 10:14 AM EDT CLINICAL HISTORY: * Annual TECHNIQUE: Tomosynthesis as well as 2D C-view imaging obtained. Computer-aided detection also utilized. CC and MLO views of both breasts obtained. COMPARISON: multiple prior studies through 01/13/2013 FINDINGS: There is no suspicious mass, calcification or architectural distortion. There is no worrisome change from the patient's prior study. Procedure Note Lorenzo Bailey MD - 03/24/2019 CLINICAL HISTORY: * Annual TECHNIQUE: Tomosynthesis as well as 2D C-view imaging obtained.Computer-aided detection also utilized. CC and MLO views of both breastsobtained. COMPARISON: multiple prior studies through 01/13/2013 FINDINGS: There is no suspicious mass, calcification or architectural distortion. There is no worrisome change from the patient's prior study. IMPRESSION: No mammographic evidence of malignancy. Annual mammographic screening isrecommended. Patients at this facility are entered into a reminder systemfor their next appointment. Density: The breast tissue is heterogeneously dense, an appearance whichlowers the sensitivity of mammography. BI-RADS CATEGORY: 1 - Negative. POS - [email or web address] Renzo Taylor DO IMG MG EXAMS Final Result documented in this encounter Visit Diagnoses Diagnosis Breast screening Breast screening, unspecified Breast screening Breast screening, unspecified documented in this encounter Care Teams Manager Meat Relationship Specialty Start Date End Date Renzo Taylor DO PCP - General 04/14/17 documented as of this encounter Additional Source Comments The information contained in this document represents components of the legal health record. It is not the complete legal health record.[facility]
--- OUTSIDE RECORDS SUMMARY | 2025-03-29 13:33 | XMS_ITS | Encounter Summary ---
Author Organization [facility] Address [address] [facility] [facility] [address] [place] [address] Phone Care Team Providers Care Laborer Wharf Name Role Phone Renzo Taylor DO Primary Care Provider [phone] Encounter Details Date Type Department Care Team (Late st Contact Info) Description 04/04/2021 Procedure Pass [address] [address] Social History Tobacco Use Types Packs/Day Years Used Date Smoking Tobacco: Never Assessed Comments No Sex and Gender Information Value Date Recorded Sex Assigned at Not on file Legal Sex Female 10:14 PM EDT Gender Identity Not on file Sexual Orientation Not on file documented as of this encounter Plan of Treatment Not on file documented as of this encounter Visit Diagnoses Not on filedocumented in this encounter Care Teams Laborer Wharf Relationship Specialty Start Date End Date Renzo Taylor DO PCP - General 04/14/17 documented as of this encounter Additional Source Comments The information contained in this document represents components of the legal health record. It is not the complete legal health record.[facility]
--- OUTSIDE RECORDS SUMMARY | 2025-03-29 13:33 | XMS_ITS | Encounter Summary ---
Author Organization [facility] Address [address] [place] [address] Phone Care Team Providers Care Advertising Analyst Name Role Phone Renzo Taylor DO Primary Care Provider [phone] Encounter Details Date Type Department Care Team (Late st Contact Info) Description 02/02/2020 Ancillary Orders Virtual Department [address] [place] [address] Renzo Taylor DO [address] [facility] [place] [address] [place] [address] [email or web address] Breast screening Social History Tobacco Use Types [...] MAMMOGRAM SCREENING WITH TOMOSYNTHESIS WITH CAD (BILATERAL) (03/26/2020 2:28 PM EDT) Anatomical Region Laterality Modality Breast Left, Breast Right, Breast Bilateral Bila teral Mammography 03/26/2020 5:17 PM EDT Impressions 03/26/2020 5:21 PM EDT No mammographic signs of malignancy. Annual screening is recommended. BI-RADS CATEGORY: 1 - Negative. DENSITY: The breast tissue is heterogeneously dense, which may obscure small masses Narrative 03/26/2020 5:21 PM EDT Bilateral mammography is performed in conjunction with computed aided detection. 3-D tomography along with 2-D C view imaging was also performed. Comparison made to previous dated as far back as 01/13/2013 and as recent as 03/23/2019. No suspicious masses, areas of architectural distortion or suspicious microcalcifications. us Renzo Taylor DO IMG MG EXAMS Final Result documented in this encounter Visit Diagnoses Diagnosis Breast screening Breast screening, unspecified Breast screening Breast screening, unspecified documented in this encounter Care Teams Advertising Analyst Relationship Specialty Start Date End Date Renzo Taylor DO [email or web address] PCP - General 04/14/17 documented as of this encounter Additional Source Comments The information contained in this document represents components of the legal health record. It is not the complete legal health record.[facility]
--- OUTSIDE RECORDS SUMMARY | 2025-03-29 13:33 | XMS_ITS | Encounter Summary ---
Author Organization [facility] Address [address] [place] [address] [place] [address] Phone Care Team Providers Care Carpenter Mold Name Role Phone Renzo Taylor DO Primary Care Provider [phone] Encounter Details Date Type Department Care Team (Late st Contact Info) Description 02/28/2020 Procedure Pass [address] [address] Social History Tobacco Use Types Packs/Day Years [...] on filedocumented in this encounter Care Teams Carpenter Mold Relationship Specialty Start Date End Date Renzo Taylor DO PCP - General 04/14/17 documented as of this encounter Additional Source Comments The information contained in this document represents components of the legal health record. It is not the complete legal health record.[facility]
--- OUTSIDE RECORDS SUMMARY | 2025-03-29 13:33 | XMS_ITS | Encounter Summary ---
Author Organization [facility] Address [address] [facility] [address] [place] [address] Phone Care Team Providers Care Powder Worker Tnt Name Role Phone eRnzo Taylor DO Primary Care Provider [phone] Encounter Details Date Type Department Care Team ([facility] st Contact Info) Description 02/21/2021 Transcribe Orders [facility] [address] [place] [address] Renzo Taylor DO [address] [facility] [address] [place] [address] Social History Tobacco Use Types Packs/Day Years [...] on filedocumented in this encounter Care Teams Powder Worker Tnt Relationship Specialty Start Date End Date Renzo Taylor DO PCP - General 04/14/17 documented as of this encounter Additional Source Comments The information contained in this document represents components of the legal health record. It is not the complete legal health record.[facility]
== END 2025-03-29 12:05 | disposition home or self-care (01) ==
LOC: HO.XRAY 12:04
PROVIDERS: PCP Internal Medicine; Visit Provider Physician Assistant
DX: R05.3 Chronic cough (principal)
CPT/HCPCS: 71046

== ENCOUNTER → 2025-03-29 12:24 | Outpatient (BNV) | payer MEDICARE, SELFPAY | PROVIDERS: PCP Internal Medicine; Visit Provider Radiology Diagnostic Radiology | DX: J84.9 Interstitial pulmonary disease, unspecified (principal) | CPT/HCPCS: 71046 ==

== ENCOUNTER → 2025-04-26 15:04 | Outpatient (REF) | payer MEDICARE, SELFPAY ==
--- NOTE | 2025-04-26 15:08 | CA_ITS ---
Transthoracic Echocardiogram Patient (Last, First, Middle): Pearl Maldonado, Gender: Female Date of : 1935 Age: 89 Procedure Date: 04/26/2025 Procedure Type: Transthoracic Echocardiogram Location: OP Height: 157.48 cm Weight: 57.61 kg BSA: 1.58 m2 Heart Rate: 64 bpm BP: 120 / 62 mmHg Recreation Facility Attendant: SB Referring MD: Barb IGNACIO Symptoms: CHRONIC COUGH Study Quality: Adequate ECG Rhythm: Sinus Conclusions: - The left ventricular systolic function is moderately decreased. The visually estimated ejection fraction is between 30-35%. - No obvious valvular pathology seen on this study. Findings Procedure Information Contrast agent, definity, is being given per protocol without apparent complications. The quality of the study was technically difficult. The study quality is limited by lung artifact. Left Ventricle Normal left ventricular cavity size. The left ventricular systolic function is moderately decreased. The visually estimated ejection fraction is between 30-35%. There is paradoxical septal motion consistent with a left bundle branch block. Evidence suggests grade I (mild) diastolic dysfunction. There is mild septal asymmetric hypertrophy. Right Ventricle Normal right ventricular cavity size and systolic function. Atria Both atria are normal in size. Aortic Valve There is a normal trileaflet aortic valve. There is no aortic valve stenosis. There is trace (trivial) aortic valve regurgitation. Mitral Valve There is mild mitral annular calcification. There is trace mitral valve regurgitation. There is no mitral valve stenosis. Pulmonic Valve The pulmonic valve is likely normal. Tricuspid Valve There is trace tricuspid valve regurgitation. There is no evidence of pulmonary hypertension. Great Vessels The asc aorta is normal in size. Venous The inferior vena cava was not well visualized. The inferior vena cava is normal in size. Pericardium/Pleural There is no evidence of pericardial effusion. Prior Study Comparison No significant change compared to prior study dated: 10/13/2023. Recommendations, Care & Conclusions No obvious valvular pathology seen on this study. Measurements 2D Linear Measurements IVSd: 1.11 0.6-0.9/0.6-1.0 cm LVIDd: 4.45 3.9-5.3/4.2-5.9 cm LVIDd Index: 2.82 2.4-3.2/2.2-3.1 cm/m2 LVIDs: 3.83 2.0-3.6 cm LA Diam: 2.90 2.7-3.8/3.0-4.0 cm LAIDs Index: 1.84 1.5-2.3 cm/m2 LVOT Diam: 2.00 3.0+(-)1.3 cm 2D Systolic Function EF Teich: 30.00 >55% EF 4C: 29.40 >55% EF 2C: 70.60 >55% Mitral Valve MV Pk E: 0.51 MV PK A: 0.93 MV Decel Time: 285.00 E/A: 0.60 E'Lateral: 2.94 E'Medial: 2.39 E/E' Med: 21.30 E/E' Lat: 17.30 PHT: 84.00 MVA PHT: 2.62 Decel Garland: 1.79 Aortic Valve AoV Pk Ayush: 1.23 AoV Pk Grad: 6.00 GAVIN: 2.40 LVOT LVOT Pk Ayush: 0.95 LVOT Mn Ayush: 0.68 LVOT VTI: 0.21 LVOT Pk Grad: 4.00 LVOT Mn Grad: 2.00 LVOT Diam: 2.00 LVOT Area: 3.14 Diastolic Function MV Pk E: 0.51 MV Pk A: 0.93 E/A: 0.60 E'Medial: 2.39 E/E' Med: 21.30 E' Laterial: 2.94 E/E' Lat: 17.30 Right Ventricle TAPSE (mm): 14.80 TVS' Ayush: 0.00 Tricuspid Valve TR Pk Ayush: 2.07 TR Pk Grad: 17.00 RA Press: 3.00 RVSP: 20.00 Great Vessels Aorta Sinus of Valsalva: 2.50 2.0-3.5 cm Ao Asc: 3.00 2.1-3.4 cm Pulmonary Veins Pulm Vein S/D 2.60 Pulmonary Valve PV Pk Ayush: 1.08 Peak PV Grad: 5.00 Updated in Other Vendor System with Status of Final Luis Carranza MD electronically signed on 04/28/2025 11:36:10 AM with status of Final
--- OUTSIDE RECORDS SUMMARY | 2025-04-26 19:33 | XMS_ITS | Clinical Summary ---
Author Organization [facility] Address [address] [place] [address] Phone Care Team Providers Care Information Clerk Brokerage Name Role Phone Renzo Taylor Primary Care Provider [phone] Allergies No known active allergies Medications influenza [...] EDT) SODIUM 137 133 - 146 mmol/L [facility] POTASSIUM 5.0 3.3 - 5.1 mmol/L [facility] CHLORIDE 99 96 - 108 mmol/L [facility] CO2 27 21 - 35 mmol/L [facility] BUN 21(H) 6 - 19 mg/dL [facility] CREATININE 0.90 0.5 - 1.5 mg/dL [facility] GLUCOSE 118(H) 70 - 99 mg/dL [facility] ALBUMIN 4.6 3.9 - 4.8 g/dL [facility] TOTAL PROTEIN 7.6 6.5 - 8.0 g/dL [facility] CALCIUM 9.4 8.4 - 10.3 mg/dL [facility] ALKALINE PHOSPHATASE 105 39 - 117 U/L [facility] TOTAL BILIRUBIN 0.6 0.0 - 1.2 mg/dL [facility] AST 25 0 - 37 U/L [facility] ALT 14 0 - 40 U/L [facility] GLOBULIN 3.0 1 - 4.8 g/dL [facility] EGFR 61 >59 mL/min/1.7 3m2 [facility] Comment:Estimated glomerular filtration rate calculated using the CKD-EPI refit equation. ANION GAP 16 10 - 20 mmol/L [facility] Blood 09/16/2023 8:39 AM EDT 09/16/2023 8:42 AM EDT us Barb IGNACIO LAB BLOOD ORDERABLES Final Result [facility] [address] [place] [address] from Last 3 Months or Most Recently Relevant to Health Maintenance Insurance [employer] RE[employer] Care Teams Information Clerk Brokerage Relationship Specialty Start Date End Date Renzo Taylor DO [email or web address] PCP - General 04/14/17 Additional Source Comments The information contained in this document represents components of the legal health record. It is not the complete legal health record.[facility]
--- OUTSIDE RECORDS SUMMARY | 2025-04-26 19:33 | XMS_ITS | Encounter Summary ---
Author Organization [facility] Address [address] [facility] [address] [place] [address] Phone Care Team Providers Care Plastic Sheeting Cutter Name Role Phone Renzo Taylor DO Primary Care Provider [phone] Encounter Details Date Type Department Care Team (Late st Contact Info) Description 04/04/2021 Procedure Pass [address] [address] Social History Tobacco Use Types Packs/Day Years [...] on filedocumented in this encounter Care Teams Plastic Sheeting Cutter Relationship Specialty Start Date End Date Renzo Taylor DO PCP - General 04/14/17 documented as of this encounter Additional Source Comments The information contained in this document represents components of the legal health record. It is not the complete legal health record.[facility]
--- OUTSIDE RECORDS SUMMARY | 2025-04-26 19:33 | XMS_ITS | Encounter Summary ---
Author Organization [facility] Address [address] [place] [address] Phone Care Team Providers Care Repair Servicer Name Role Phone Renzo Taylor DO Primary Care Provider [phone] Encounter Details Date Type Department Care Team (Late st Contact Info) Description 02/02/2020 Ancillary Orders Virtual Department [address] [place] [address] Renzo Taylor DO [address] [facility] [place] [address] [place] [address] [email or web address] Breast screening Social History Tobacco Use Types [...] unspecified documented in this encounter Care Teams Repair Servicer Relationship Specialty Start Date End Date Renzo Taylor DO [email or web address] PCP - General 04/14/17 documented as of this encounter Additional Source Comments The information contained in this document represents components of the legal health record. It is not the complete legal health record.[facility]
--- OUTSIDE RECORDS SUMMARY | 2025-04-26 19:33 | XMS_ITS | Encounter Summary ---
Author Organization [facility] Address [address] [facility] [address] [place] [address] Phone Care Team Providers Care Orthotist Prosthetist Name Role Phone Renzo Taylor DO Primary Care Provider [phone] Encounter Details Date Type Department Care Team ([facility] st Contact Info) Description 02/21/2021 Transcribe Orders [facility] [address] [place] [address] Renzo Taylor DO [address] [facility] [place] [address] [place] [address] [email or web address] Social History Tobacco Use Types Packs/Day Years [...] on filedocumented in this encounter Care Teams Orthotist Prosthetist Relationship Specialty Start Date End Date Renzo Taylor DO [email or web address] PCP - General 04/14/17 documented as of this encounter Additional Source Comments The information contained in this document represents components of the legal health record. It is not the complete legal health record.[facility]
--- OUTSIDE RECORDS SUMMARY | 2025-04-26 19:33 | XMS_ITS | Encounter Summary ---
Author Organization [facility] Address [address] [place] [address] [place] [address] Phone Care Team Providers Care Printed Circuit Board Designer Name Role Phone Renzo Taylor DO Primary Care Provider [phone] Encounter Details Date Type Department Care Team (Late st Contact Info) Description 02/28/2020 Procedure Pass [address] [address] Social History Tobacco Use Types Packs/Day Years [...] on filedocumented in this encounter Care Teams Printed Circuit Board Designer Relationship Specialty Start Date End Date Renzo Taylor DO PCP - General 04/14/17 documented as of this encounter Additional Source Comments The information contained in this document represents components of the legal health record. It is not the complete legal health record.[facility]
--- OUTSIDE RECORDS SUMMARY | 2025-04-26 19:33 | XMS_ITS | Encounter Summary ---
Author Organization [facility] Address [address] [address] Phone Care Team Providers Care Tellers Supervisor Name Role Phone Renzo Taylor DO Primary Care Provider [phone] Encounter Details Date Type Department Care Team ([facility] st Contact Info) Description 02/18/2018 Ancillary Orders Virtual Department [address] [place] [address] Renzo Taylor DO [address] [facility] [place] [address] [place] [address] [email or web address] Breast screening Social [...] unspecified documented in this encounter Care Teams Tellers Supervisor Relationship Specialty Start Date End Date Renzo Taylor DO PCP - General 04/14/17 documented as of this encounter Additional Source Comments The information contained in this document represents components of the legal health record. It is not the complete legal health record.[facility]
--- OUTSIDE RECORDS SUMMARY | 2025-04-26 19:33 | XMS_ITS | Data Portability ---
Author Organization [facility], Telehealth Patient Home Address [address] [place] [address] Assessment No assessment recorded. Plan of Treatment Reminders Order Date Submit Date Provider Last Modified By Organization Details Last Modified Time Details Appointments ANNUAL EXAM 2025 03:30P M MATEUS HAWLEY Not available Not available Not available Lab CMP, serum or plasma 2023 024 [facility], [address] [place] [address], [id number], 08/04/2023 15:52:55 lipid panel, serum 2023 024 [facility], [address] [place] [address], [address], 09/16/2023 13:08:23 CBC w/ auto diff 2023 024 [facility], [address] [place] [address], [address], 09/16/2023 12:33:11 hemoglobi n A1c, QN, blood 2023 024 [facility], [address] [place] [address], [address], 09/16/2023 13:44:11 TSH + free T4, serum 2023 024 [facility], [address] [place] [address], [address], 08/04/2023 15:52:55 TSH + free T4, serum 2022 023 [facility], [address] [place] [address], [address], 12/29/2022 16:30:43 thyroid peroxidas e (tpo) Ab, serum 2022 023 [facility], [address] [place] [address], [address], 12/29/2022 16:30:42 thyroglob ulin Ab, serum 2022 023 [facility], [address] [place] [address], [address], 01/07/2023 12:20:11 thyrotrop in, QN, serum or plasma 2022 023 [facility], [address] [place] [address], [address], 01/21/2023 08:31:31 ESR (erythroc yte sedimenta tion rate), blood 2022 023 [facility], [address] [place] [address], [address], 12/29/2022 16:30:43 C-reactiv e protein, qualitati ve, serum 2022 023 [facility], [address] [place] [address], [address], 12/29/2022 16:30:42 CBC w/ auto diff 2022 023 [facility], [address] [place] [address], [address], 01/06/2023 13:46:04 CMP, serum or plasma 2022 023 [facility], [address] [place] [address], [address], 01/06/2023 14:21:31 Referral None recorded. Procedures None recorded. Surgeries None recorded. Imaging XR, chest, 2 view 2024 025 [facility] Scheduling, [address] [place], [address], 03/29/2025 14:34:29 US, echocardi ogram 2024 025 [email or web address] [facility] Scheduling, [address] [place], [address], 04/04/2025 08:23:38 Medication Orders Entresto 24 mg-26 mg tablet 2022 023 [facility], [address] [place], [address], 12/29/2022 16:21:03 furosemid e 40 mg tablet 2022 023 [facility], [address] [place], [address], 12/29/2022 16:21:03 metoprolo l succinate ER 25 mg tablet,ex tended release 24 hr 2022 023 [facility] [address] [place], [address], 12/29/2022 16:21:01 Patient TargetsNo targets recorded. Patient InstructionsNo instructions recorded. Reason for Referral None Reported. Results Created Date Observation Date Name Description Value Unit Range Abnormal Flag Note LastModifiedBy Organization Detail LastModifiedTime 03/29/20 25 03/29/2025 XR, chest , 2 view No observ ation record ed. [email or web address] [facility] (Medical Records) [address] [place] [address], [address], 03/31/2025 11:14:35 Result Notes None recorded. 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 Not Available [facility] 2 14:43:35 Essential hypertens ion 86332911 Active 2022 MATEUS HAWLEY [address] [place] [address], [address], [facility] 3 12:16:00 Congestiv e heart failure 96373943 Active 2022 MATEUS HAWLEY [address] [place] [address], [address], [facility] 3 15:31:11 Disorder of thyroid gland 75709896 Active 2022 MATEUS HAWLEY [address] [place] [address], [address], [facility] 3 16:21:05 Reactive lymphaden opathy 071293055 Active 2022 MATEUS HAWLEY [address] [place] [address], [address], [facility] 3 16:22:23 Pain of bilateral hip joints 939544707557 59339 Active 2023 MATEUS HAWLEY [address] [place] [address], [address], [facility] 4 11:16:07 Chronic cough 59402150 Active 2024 MATEUS HAWLEY [address] [place] [address], [address], [facility] 5 10:06:48 Problem Notes None recorded. Medical Equipment None Reported. Allergies No known drug allergies Medications Name Sig Start Date Stop Date Status Note LastModified by Organization Details LastModified Time furosemide 40 mg tablet TAKE 1 TABLET BY MOUTH EVERY DAY 2024 active Not Available Not Available Not Avai lable azithromycin 250 mg tablet TAKE 2 TABLETS [...] Not Available Not Available Not Available metoprolol tartrate 25 mg tablet Take [...] in Arterial blood by Pulse oximetry Systolic And Diastolic Provider Name and Address Organization Details Last Updated DateTime 4 156.85 cm 22.5 kg/m2 89875.2 7 g 70 /min 98 % 98 % 138/68 mm[Hg] Beth [facility] 4 15:36:49 Date Recorded Body height Body mass index (BMI) Body weight Heart rate Oxygen saturation Oxygen saturation in Arterial blood by Pulse oximetry Systolic And Diastolic Provider Name and Address Organization Details Last Updated DateTime 5 156.85 cm 23.2 kg/m2 71916.6 4 g 77 /min 98 % 98 % 118/77 mm[Hg] Beth Singh [facility] 5 15:39:51 Date Recorded Body height Body mass index (BMI) Body weight Heart rate Oxygen saturation Oxygen saturation in Arterial blood by Pulse oximetry Systolic And Diastolic Provider Name and Address Organization Details Last Updated DateTime 3 156.85 cm 22.5 kg/m2 99200.2 7 g 65 /min 98 % 98 % 122/60 mm[Hg] Beth Singh [facility] 3 16:00:11 Date Recorded Body height Body mass index (BMI) Body weight Heart rate Oxygen saturation Oxygen saturation in Arterial blood by Pulse oximetry Systolic And Diastolic Provider Name and Address Organization Details Last Updated DateTime 5 156.85 cm 23.2 kg/m2 99377.6 4 g 77 /min 97 % 97 % 130/78 mm[Hg] Beth Francisco [facility] 5 09:58:39 Date Recorded Body height Body mass index (BMI) Body weight Heart rate Oxygen saturation Oxygen saturation in Arterial blood by Pulse oximetry Systolic And Diastolic Provider Name and Address Organization Details Last Updated DateTime 4 156.85 cm 23.2 kg/m2 53395.6 4 g 77 /min 98 % 98 % 126/78 mm[Hg] Violeta Aleksandar [facility] 4 10:51:21 Social History Question Answer Notes LastModified by Organizat ion Details LastModified Time Tobacco Smoking Status Never Smoker Not Available [facility] 05/01/2020 03:36:23 What Was The Date Of Your Most Recent Tobacco Screening? 03/29/2025 [email or web address] Information not available 03/29/2025 Sex: Unknown Functional Status Question Answer Note LastModified by Organization D etails LastModified Time Do you or have you ever used any other forms of tobacco or nicotine? No [email or web address] Information not available 07/10/2022 Mental Status None recorded. Family History Nothing Reported. Medical History No medical history recorded. Gynecological HistoryNo gynecological history recorded. Obstetrics History GPAL:G 0 P 0 0 0 0 Immunizations Vaccine Type Date Status Note Provider Nam e and Address Organization Details Recorded Time Influenza, split virus, quadrivalent, preservative 1 completed Renzo Taylor, DO [address] [facility], [address], [facility] 05/16/2021 18:38:13 zoster, unspecified formulation 1 completed Renzo Taylor DO [address] [place] [address], [address], [facility] 05/16/2021 18:38:28 zoster recombinant 2 completed Mili winchester [facility] 07/26/2021 14:47:53 Influenza, adjuvanted, trivalent, PF 8 [facility] 04/27/2018 10:58:00 Influenza, split virus, quadrivalent, preservative 0 completed Renzo Taylor DO [address] [place] [address], [address], [facility] 06/02/2020 15:54:29 Pneumococcal conjugate PCV 13 0 completed Renzo Taylor DO [address] [place] [address], [address], [facility] 06/02/2020 15:54:45 Pneumococcal conjugate PCV 13 0 completed Renzo Taylor DO [address] [place] [address], [address], [facility] 06/02/2020 15:55:55 Past Encounters Encounter ID Performer Location Encounter Start Date Encounter Closed Date Diagnosis/Indication Diagnosis SNOMED-CT Code Diagnosis ICD10 Code Diagnosis IMO Codes Diagnosis Note [id number] Renzo Taylor DO [facility] [address],[place] [address] 10/22/2018 11:09:36 10/22/2018 12:04:39 Hypertensive disorder 76964098 I10 home readings are excellent exercises daily walks too is active with fam and is always reading too [id number] Renzo Taylor DO [facility] [address],[place] [address] 09/19/2019 13:50:36 10/03/2019 09:19:40 Hypertensive disorder 09770999 I10 home readings are excellent exercises daily walks too is active with fam and is always reading too Osteopenia 563488004 M85 .80 WILL NEED TO FOLLOW HER AND SEE THAT SHE REMAINS STABLE [place] [address] [place] [id number] Renzo Taylor DO [facility] [address] [facility], [email or web address] [address] 05/28/2020 13:26:19 05/28/2020 16:09:37 Adult health examination 258970396 Z00.00 BP elevated, but lower than last visit HR elevated, pt is anxious today at exam will continue to monitor Screening for cardiovascular system disease 413383884 Z13.6 will check BP, no hx bw in system [id number] Renzo Taylor DO [facility] [address] [facility], [email or web address] [address] 05/29/2021 13:21:07 05/31/2021 14:44:26 Active or passive immunization 774676371 Z23 advised Adult heal th examination 921762453 Z00.00 BP elevated, but lower than last visit HR elevated, pt is anxious today at exam will continue to monitornum bers are good at home Hypertensive disorder 38 218227 I10 needs refill [id number] Renzo Taylor DO [facility] [address] [facility], [email or web address] [address] 07/10/2022 11:52:49 07/10/2022 12:23:17 Active or passive immunization 852348954 Z23 patient advised she is due for tdap, pneu 23 & flu shot Adult heal th examination 352458433 Z00.00 BP fine today Advance care planning 71 3306289 Z71.89 advised Essential hypertension 86152202 I10 will increase her dosage up with an additional 25 mg for her BP control so she doesn't get the highs she is talking about [id number] Renzo Taylor DO [facility] [address] [facility], [place] [address] 09/17/2022 14:58:10 09/19/2022 08:50:17 Congestive heart failure 39215630 I50.21 doing really well [id number] Renzo Taylor [facility] [address] [facility],[place] [address] 12/29/2022 15:53:45 12/29/2022 16:35:05 Congestive heart failure 05914848 I50.9 doing really well Disorder o f thyroid gland 11953900 E07.89 would like her thyroid checked Reactive lymphadenopathy 642311161 R59.1 agreed to extra lab work [id number] Renzo Taylor [facility] [address] [facility],[place] [address] 08/04/2023 15:32:34 08/05/2023 16:19:42 Congestive heart failure 95215981 I50.22 doing really wellno issues [facility] 276501150 Z00.00 BP fine today with first check Congestive heart failure 75610775 I50.21 doing really well [id number] Renzo Taylor [facility] [address] [facility],[place] [address] 04/15/2024 10:35:56 04/15/2024 11:22:37 Essential hypertension 63413023 I10 will increase her dosage up with an additional 25 mg for her BP control so she doesn't get the highs she is talking about Pain of bi lateral hip joints 9928759497 9596308 M25.552 improved [id number] Renzo Taylor [facility] [address] [facility],[place] [address] 09/05/2024 15:10:12 09/05/2024 16:31:57 Adult health examination 773060403 Z00.00 BP is excellent [id number] Renzo Taylor [facility] [address] [facility],[place] [address] 03/29/2025 09:52:47 03/29/2025 12:53:41 Depression screening 652407343 Z13.31 negative Chronic cough 09477097 R 05.3 76004 will set up with CXR and US echo Health Concerns Section Related Observation LastModified by Organization Detai ls LastModified Time None Recorded Concern Status LastModified by Organization Details LastModified Time None Recorded Advance Directives Directive None Recorded Payers Insurance Date Sequence Insurance Name Policy Number Policy Donohue Covered Member ID Donohue Member ID Guarantor Name 03/29/2025 1 [facility] - MEDICARE PREFERRED (MEDICARE REPLACEMENT HMO) [employer] Pearl Maldonado [id number] Pearl Maldonado Notes Date Note Type Note Provider Name a nd Address Organization Details Recorded Time 3 text/html ROS as noted in the HPI c/o thyroid issues the patient reports that [...] no other concerns today MATEUS HAWLEY [address] [place], [address], [facility] 12/29/2022 16:31:36 4 text/html Annual WellnessReported by PatientSocial/Behavior al HistoryFor diet and nutrition, patient reportsdiscussed vitamin and supplement use,discussed portion control,discussed maintaining calcium balance, anddiscussed diet improvement. For fracture risk, patient reportsno history of fractures,no recent explained fracture,no sudden unexplained fractures, andno previous musculoskeletal injuries. For physical activity, patient reportsexercises on a regular basis,recent increase in physical activity, andgood physical condition. For additional lifestyle factors, patient reportsno tobacco useandno alcohol intake.Mental Status:For depression risk, patient reportsnever feels sad, empty, or tearful,no loss of interest in activities,no significant changes in weight,no sleep disturbances or insomnia,no agitation,no loss of energy,no feelings of worthlessness or guilt,no thoughts of suicide,no history of depression, andno history of mood disorders.Functional AbilityFor hearing, patient reportsno loss of hearing. For vision, patient reportsno vision problems. BP isn't bad todaya little anxious because her granddaughter drove her the patient reports that she is doing well [id number] puts things down and forgets, but nothing concerningno behavioral changes either bowel habits normalno sleep distrubances no falls, no broken bones MATEUS HAWLEY [address] [facility], [place], [address], [facility] 08/04/2023 15:56:46 4 text/html ROS as noted in the HPI f/u hip pain, UC f/u the patient [...] on calcium and magnesium MATEUS HAWLEY [address] [place], [address], [facility] 04/15/2024 11:22:07 5 text/html Annual WellnessReported by PatientSocial/Behavior al HistoryFor diet and nutrition, patient reportshealthy diet,discussed vitamin and supplement use,discussed portion control,discussed maintaining calcium balance, anddiscussed diet improvement. For fracture risk, patient reportsno history of fractures,no recent explained fracture,no sudden unexplained fractures, andno previous musculoskeletal injuries. For physical activity, patient reportsexercises on a regular basis,recent increase in physical activity,good physical condition,discussed weightbearing activities, anddiscussed exercise habits. For additional lifestyle factors, patient reportsno tobacco useanddrinks alcohol (mild-moderate).Mental Status:For depression risk, patient reportsnever feels sad, empty, or tearful,no loss of interest in activities,no significant changes in weight,no sleep disturbances or insomnia,no agitation,no loss of energy,no feelings of worthlessness or guilt,no thoughts of suicide,no history of depression, andno history of mood disorders.Functional AbilityFor hearing, patient reportsno loss of hearing. For vision, patient reportsno vision problems.ROS as noted in the HPI CHF stable, seeing cardio MATEUS HAWLEY [address] [place], [address], [facility] 09/05/2024 16:27:27 5 text/html ROS as noted in the HPI c/o chronic cough the patient is here for a chronic coughthe patient reports that it has been happening for awhile now the patient denies fever chills, sob, chest pain the patient reports that it is intermittent now correlation she does have hx of CHF and does have cardio recommended CXR and echocould be allergies vs RAD MATEUS HAWLEY [address] [facility], [place], [address], [facility] 03/29/2025 10:15:42 OBGyn Episode No OBEpisode recorded.
== END ==
LOC: HO.CARD 15:04
PROVIDERS: PCP Internal Medicine; Visit Provider Physician Assistant
DX: R05.3 Chronic cough (principal)
CPT/HCPCS: 93306; Q9957

== ENCOUNTER → 2025-04-26 15:08 | Outpatient (BNV) | payer MEDICARE, SELFPAY | PROVIDERS: PCP Internal Medicine; Visit Provider Internal Medicine | DX: I42.2 Other hypertrophic cardiomyopathy (principal); I34.81 Nonrheumatic mitral (valve) annulus calcification | CPT/HCPCS: 93306 ==

== ENCOUNTER 2025-05-11 09:02 | Outpatient (AMB) | payer MEDICARE, SELFPAY ==
[2025-05-11 09:06] VITALS: BP 128/68; PULSE 72; BMI 23.4
--- NOTE | 2025-05-11 09:06 | MHC.OFFVIS ---
Vital Signs 05/11/25 09:06 Height 5 ft 2 in Weight 127 lb 13.89 oz BMI 23.4 BP 128/68 Blood Pressure Location Lt brachial Position Sitting Pulse 72 Pulse Source Monitor Intake Visit Reasons: f/up sob Allergies No Known Allergies Allergy (Verified 07/22/23 14:56) Medication List - Last Reconciled 05/11/25 by Luis Carranza MD furosemide (Lasix) 20 mg PO DAILY metoprolol succinate ER 25 mg PO DAILY sacubitril-valsartan 24-26 mg (Entresto) 1 tab PO BID 90 days spironolactone 25 mg PO DAILY HPI Comments Details: Stephanie returns for follow-up regarding cardiomyopathy. To recall, in 2022, she had a hospitalization for acute congestive heart failure. Echocardiogram then with severe LV dysfunction. She also had left bundle-branch block on the EKG. Since that time, she has been on guideline based medical therapy. Currently, her main complaint is cough. She states that she is frequently coughing and has been like that for the last few months. She apparently had a chest x-ray and told to have probably pulmonary issues. From the cardiac standpoint, she is denying any other complaints like angina or shortness of breath or leg swelling. According to daughter, she is intermittently taking medications and not daily. [facility] Medical History (Updated 10/07/22 @ 14:17 by Luis Carranza MD) LBBB (left bundle branch block) Pleural effusion HTN (hypertension) Congestive cardiac failure Family History Father No problems noted. Mother No problems noted. Social History Household Members: None Housing: House Do you presently have visiting nurse or other home services: No Alcohol intake: never Patient Tobacco Use Status: Never used Tobacco e-Cigarette/Vaping Use: Never Used Second Hand Smoke Exposure: No service: No Current occupational status: retired Review of Systems Const Denies weakness ENT Denies dizziness Card Denies chest pain, Denies chest pain with activity, Denies syncope, Denies rapid heart rate, Denies pedal edema, Denies edema, Denies leg edema, Denies lightheadedness, Denies palpitations, Reports dyspnea, Denies dyspnea on exertion and Denies orthopnea Resp Reports chest congestion, Reports cough, Reports dyspnea and Denies dyspnea on exertion GI Denies hematochezia and Denies change in stool character Musc Denies abnormal gait, Denies muscle cramps, Denies muscle weakness, Denies numbness, Denies radiating pain into limb and Denies tingling Neuro Denies abnormal gait, Denies dizziness, Denies syncope, Denies numbness, Denies tingling and Denies weakness Endo Denies palpitations Physical Exam Vital Signs: Last Vital Signs Pulse 72 05/11/25 09:06 BP 128/68 05/11/25 09:06 BMI result Body Mass Index 23.4 Const General: comfortable and no acute distress Orientation/consciousness: patient oriented x3 HEENT Other: Unremarkable Head: Yes normal to inspection Neck Neck: Yes normal visual inspection Chest Chest palpation & inspection: normal inspection of the chest Resp Auscultation: clear to auscultation bilaterally Cardio Palpation: normal PMI Heart sounds: S1 normal heart sound present, S2 normal heart sound present, no gallops, no murmurs and no rubs GI Palpation (GI): Soft to palpation Back/Spine/Pelvis Other: unremarkable Skin General skin exam: no rashes or lesions noted Neuro General: patient oriented x3 Extrem General: Yes normal to inspection Psych Mental Status: mental status grossly normal Office Procedures EKG Details: EKG with underlying sinus rhythm at 72/Min; left bundle-branch block pattern; [place] [id number]-[id number], Complete Assessment & Plan Assessment & Plan (1) Chronic combined systolic and diastolic CHF (congestive heart failure): Code(s): I50.42 - Chronic combined systolic (congestive) and diastolic (congestive) heart failure Category: Medical (2) LBBB (left bundle branch block): Code(s): I44.7 - Left bundle-branch block, unspecified Category: Medical (3) HTN (hypertension): Code(s): I10 - Essential (primary) hypertension Category: Medical Plan EKG shows sinus rhythm/left bundle-branch block pattern. In the last echocardiogram, LVEF 30-35%. This is improved from prior study where LVEF was 15-20%. With regard to medications, on metoprolol, Entresto, spironolactone and Lasix. Advised her to take it regularly. In the recent chest x-ray, reported have a chronic interstitial lung disease. Repeat labs. Check NT pro BNP. Could consider Farxiga or Jardiance but in the past she did not want any further medications. Other option would be a biventricular pacemaker but again patient mainly prefers conservative care. With regard to chest x-ray findings, recommend chest CT scan and pulmonary evaluation. Daughter agrees with the above. Follow-up appointment will be scheduled. Discussion Notes I discussed with the patient the diagnosis of interstitial lung disease and the need for further evaluation by a lung specialist. We also talked about the chronic cough and the plan to conduct a CT scan and blood tests to investigate further. The importance of medication adherence for heart issues was emphasized, and a follow-up appointment was scheduled. Patient was informed and verbally consented to the use of an ambient scribe for clinic note documentation during this visit. Orders: Orders NT Pro B Type Natriuretic Pept Today I50.42 - Chronic combined systolic (congestive) and diastolic (congestive) heart failure, I50.9 - Heart failure, unspecified Basic Metabolic Panel Today I50.9 - Heart failure, unspecified CT chest wo IV con Today J84.9 - Interstitial pulmonary disease, unspecified Referrals Pulmonology Referral R05.9 - Cough, unspecified Coding Level of Care Code Est Pt Level 4 (73537) Complex EM visit Add On G2211 Diagnoses Chronic combined systolic and diastolic CHF (congestive heart failure) I50.42 LBBB (left bundle branch block) I44.7 HTN (hypertension) I10 CPT Codes EKG - CPT: 28013-Whjanbycgfukakyus, Complete ([id number])
--- OUTSIDE RECORDS SUMMARY | 2025-05-11 09:49 | XMS_ITS | Encounter Summary ---
Author Organization [facility] Address [id number] [place] [address] Phone Care Team Providers Care Public Health Dietitian Name Role Phone Renzo Taylor DO Primary Care Provider [phone] Encounter Details Date Type Department Care Team (Late st Contact Info) Description 02/02/2020 Ancillary Orders Virtual Department [address] [place] [address] Renzo Taylor DO [address] [facility] [place] [address] [place] [address] [email or web address] Breast screening Social History Tobacco Use Types [...] unspecified documented in this encounter Care Teams Public Health Dietitian Relationship Specialty Start Date End Date Renzo Taylor DO [email or web address] PCP - General 04/14/17 documented as of this encounter Additional Source Comments The information contained in this document represents components of the legal health record. It is not the complete legal health record.[facility]
--- OUTSIDE RECORDS SUMMARY | 2025-05-11 09:49 | XMS_ITS | Data Portability ---
Author Organization [facility] Patient Home Address [address] [place] [address] Assessment No assessment recorded. Plan of Treatment Reminders Order Date Submit Date Provider Last Modified By Organization Details Last Modified Time Details Appointments ANNUAL EXAM 2025 03:30P M MATEUS HAWLEY Not available Not available Not available Lab CMP, serum or plasma 2023 024 [facility], [address] [place] [address], [id number], 08/04/2023 15:52:55 lipid panel, serum 2023 024 [facility], [address] [place] [address], [id number], 09/16/2023 13:08:23 CBC w/ auto diff 2023 024 [facility], [address] [place] [address], [address], 09/16/2023 12:33:11 hemoglobi n A1c, QN, blood 2023 024 [facility], [address] [place] [address], [address], 09/16/2023 13:44:11 TSH + free T4, serum 2023 024 [facility], [address] [place] [address], [address], 08/04/2023 15:52:55 TSH + free T4, serum 2022 023 [facility], [address] [place] [address], [address], 12/29/2022 16:30:43 thyroid peroxidas e (tpo) Ab, serum 2022 023 [facility], [address] [place] [address], [address], 12/29/2022 16:30:42 thyroglob ulin Ab, serum 2022 023 [facility], [address] [place] [address], [address], 01/07/2023 12:20:11 thyrotrop in, QN, serum or plasma 2022 023 [facility], [address] [place] [address], [address], 01/21/2023 08:31:31 ESR (erythroc yte sedimenta tion rate), blood 2022 023 [facility], [address] [place] [address], [address], 12/29/2022 16:30:43 C-reactiv e protein, qualitati ve, serum 2022 023 [facility], [address] [place] [address], [address], 12/29/2022 16:30:42 CBC w/ auto diff 2022 023 [facility], [address] [place] [address], [address], 01/06/2023 13:46:04 CMP, serum or plasma 2022 023 [facility], [address] [place] [address], [address], 01/06/2023 14:21:31 Referral None recorded. Procedures None recorded. Surgeries None recorded. Imaging XR, chest, 2 view 2024 025 [facility] Central Scheduling, [address] [place], [address], 03/29/2025 14:34:29 US, echocardi ogram 2024 025 [email or web address] [facility] Central Scheduling, [address] [place], [address], 04/04/2025 08:23:38 Medication Orders Entresto 24 mg-26 mg tablet 2022 023 [facility], [address] [place], [address], 12/29/2022 16:21:03 furosemid e 40 mg tablet 2022 023 [facility]2024, [address] [place], [address], 12/29/2022 16:21:03 metoprolo l succinate ER 25 mg tablet,ex tended release 24 hr 2022 023 [facility] [address] [place], [address], 12/29/2022 16:21:01 Patient TargetsNo targets recorded. Patient InstructionsNo instructions recorded. Reason for Referral None Reported. Results Created Date Observation Date Name Description Value Unit Range Abnormal Flag Note LastModifiedBy Organization Detail LastModifiedTime 03/29/2003/29/2025 XR, chest , 2 view No observ ation record ed. [facility] (Medical Records) [address] [place], [address], 03/31/2025 11:14:35 04/28/20 25 04/26/2025 US, echoc ardio gram No observ ation record ed. [facility] (Medical Records) [address] [place], [address], 04/28/2025 14:02:36 Result Notes None recorded. 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 Not Available [facility] 2 14:43:35 Essential hypertens ion 47807740 Active 2022 MATEUS HAWLEY [address] [place], [address], [facility] 3 12:16:00 Congestiv e heart failure 85998960 Active 2022 MATEUS HAWLEY [address] [place], [address], [facility] 3 15:31:11 Disorder of thyroid gland 95413729 Active 2022 MATEUS HAWLEY [address] [place], [address], [facility] 3 16:21:05 Reactive lymphaden opathy 603888141 Active 2022 MATEUS HAWLEY [address] [place], [address], [facility] 3 16:22:23 Pain of bilateral hip joints 845726682018 30661 Active 2023 MATEUS HAWLEY [address] [place], [address], [facility] 4 11:16:07 Chronic cough 41019774 Active 2024 MATEUS HAWLEY [address] [place], [address], [facility] 5 10:06:48 Problem Notes None [...] Updated DateTime 4 156.85 cm 22.5 kg/m2 85886.2 7 g 70 /min 98 % 98 % 138/68 mm[Hg] Beth Singh [facility] 4 15:36:49 Date Recorded Body height Body mass index (BMI) Body weight Heart rate Oxygen saturation Oxygen saturation in Arterial blood by Pulse oximetry Systolic And Diastolic Provider Name and Address Organization Details Last Updated DateTime 5 156.85 cm 23.2 kg/m2 82427.6 4 g 77 /min 98 % 98 % 118/77 mm[Hg] Bethzuleyma Figueroamond [facility] 5 15:39:51 Date Recorded Body height Body mass index (BMI) Body weight Heart rate Oxygen saturation Oxygen saturation in Arterial blood by Pulse oximetry Systolic And Diastolic Provider Name and Address Organization Details Last Updated DateTime 3 156.85 cm 22.5 kg/m2 41254.2 7 g 65 /min 98 % 98 % 122/60 mm[Hg] Beth Singh [facility] 3 16:00:11 Date Recorded Body height Body mass index (BMI) Body weight Heart rate Oxygen saturation Oxygen saturation in Arterial blood by Pulse oximetry Systolic And Diastolic Provider Name and Address Organization Details Last Updated DateTime 5 156.85 cm 23.2 kg/m2 78128.6 4 g 77 /min 97 % 97 % 130/78 mm[Hg] Beth Francisco [facility] 5 09:58:39 Date Recorded Body height Body mass index (BMI) Body weight Heart rate Oxygen saturation Oxygen saturation in Arterial blood by Pulse oximetry Systolic And Diastolic Provider Name and Address Organization Details Last Updated DateTime 4 156.85 cm 23.2 kg/m2 24152.6 4 g 77 /min 98 % 98 % 126/78 mm[Hg] Violeta Huertas [facility] 4 10:51:21 Social History Question Answer Notes LastModified by Organizat ion Details LastModified Time Tobacco Smoking Status Never Smoker Not Available [facility] 05/01/2020 03:36:23 What Was The Date Of Your Most Recent Tobacco Screening? 03/29/2025 Information not available 03/29/2025 Sex: Unknown Functional [...] quadrivalent, preservative 1 completed Renzo Taylor DO [address] [place] [address], [address], [facility] 05/16/2021 18:38:13 zoster, unspecified formulation 1 completed Renzo Taylor DO [address] [place] [address], [address], [facility] 05/16/2021 18:38:28 zoster recombinant 2 completed Mili winchester [facility] 07/26/2021 14:47:53 Influenza, adjuvanted, trivalent, PF 8 completed Mili winchester [facility] 04/27/2018 10:58:00 Influenza, split virus, quadrivalent, preservative 0 completed Renzo Taylor DO [address] [place] [address], [address], [facility] 06/02/2020 15:54:29 Pneumococcal conjugate PCV 13 0 completed Renzo Taylor DO [address] [place] [address], [address], [facility] 06/02/2020 15:54:45 Pneumococcal conjugate PCV 13 0 completed Renzo Taylor DO [address] [place] [address], [address], [facility] 06/02/2020 15:55:55 Past Encounters Encounter ID Performer Location Encounter Start Date Encounter Closed Date Diagnosis/Indication Diagnosis SNOMED-CT Code Diagnosis ICD10 Code Diagnosis IMO Codes Diagnosis Note [id number] Renzo Taylor DO [facility] [address] [place] [address],[place] [address] 10/22/2018 11:09:36 10/22/2018 12:04:39 Hypertensive disorder 99792870 I10 home readings are excellent exercises daily walks too is active with fam and is always reading too [id number] Renzo Taylor [facility] [address] [facility] [facility] [place] [address] 09/19/2019 13:50:36 10/03/2019 09:19:40 Hypertensive disorder 40313697 I10 home readings are excellent exercises daily walks too is active with fam and is always reading too Osteopenia 504987159 M85 .80 WILL NEED TO FOLLOW HER AND SEE THAT SHE REMAINS STABLE [place]ING [place] [address] [place] [id number] Renzo Taylor [facility] [address] [facility],[place] [address] 05/28/2020 13:26:19 05/28/2020 16:09:37 Adult health examination 710616854 Z00.00 BP elevated, but lower than last visit HR elevated, pt is anxious today at exam will continue to monitor Screening for cardiovascular system disease 522006387 Z13.6 will check BP, no hx bw in system [id number] Renzo Taylor [facility] [address] [facility] [address] 05/29/2021 13:21:07 05/31/2021 14:44:26 Active or passive immunization 437912547 Z23 advised Adult heal th examination 819946924 Z00.00 BP elevated, but lower than last visit HR elevated, pt is anxious today at exam will continue to monitornum bers are good at home Hypertensive disorder 38 735931 I10 needs refill [id number] Renzo Taylor [facility] [address] [facility],[place] [address] 07/10/2022 11:52:49 07/10/2022 12:23:17 Active or passive immunization 875704462 Z23 patient advised she is due for tdap, pneu 23 & flu shot Adult heal th examination 119361238 Z00.00 BP fine today Advance care planning 71 2631230 Z71.89 advised Essential hypertension 52447680 I10 will increase her dosage up with an additional 25 mg for her BP control so she doesn't get the highs she is talking about [id number] Renzo Taylor [facility] [address] [facility] [address] 09/17/2022 14:58:10 09/19/2022 08:50:17 Congestive heart failure 71353408 I50.21 doing really well [id number] Renzo Taylor [facility] [address] [facility] [address] 12/29/2022 15:53:45 12/29/2022 16:35:05 Congestive heart failure 67900092 I50.9 doing really well Disorder o f thyroid gland 04332543 E07.89 would like her thyroid checked Reactive lymphadenopathy 840356659 R59.1 agreed to extra lab work [id number] Renzo Taylor [facility] [address] [facility] [facility] [place] [address] 08/04/2023 15:32:34 08/05/2023 16:19:42 Congestive heart failure 34158226 I50.22 doing really wellno issues Adult [facility] th examination 216814441 Z00.00 BP fine today with first check Congestive heart failure 60975777 I50.21 doing really well [id number] Renzo Taylor [facility] [address] [facility] [address] 04/15/2024 10:35:56 04/15/2024 11:22:37 Essential hypertension 19183885 I10 will increase her dosage up with an additional 25 mg for her BP control so she doesn't get the highs she is talking about Pain of bi lateral hip joints 5551342509 2767327 M25.552 improved [id number] Renzo Taylor [facility] [address] [facility] [facility] [place] [address] 09/05/2024 15:10:12 09/05/2024 16:31:57 Adult health examination 043163247 Z00.00 BP is excellent [id number] Renzo Taylor [facility] [address] [facility] [address] 03/29/2025 09:52:47 03/29/2025 12:53:41 Depression screening 213385688 Z13.31 negative Chronic cough 03790403 R 05.3 [id number] will set up with CXR and US echo Health Concerns Section Related Observation LastModified by Organization Detai ls LastModified Time None Recorded Concern Status LastModified by Organization Details LastModified Time None Recorded Advance Directives Directive None Recorded Payers Insurance Date Sequence Insurance Name Policy Number Policy Donohue Covered Member ID Donohue Member ID Guarantor Name 03/29/2025 1 [facility] - MEDICARE PREFERRED (MEDICARE REPLACEMENT HMO) [employer] Pearl Maldonado [id number] Pearl Mac Joel Notes Date Note Type Note Provider Name [...] infection no other concerns today MATEUS HAWLEY [address] [place] [address], [address], [facility] 12/29/2022 16:31:36 4 text/html Annual [...] patient reports that she is doing well [id number] puts things down and forgets, but nothing concerningno behavioral changes either bowel habits normalno sleep distrubances no falls, no broken bones MATEUS HAWLEY [address] [place], [address], [facility] 08/04/2023 15:56:46 4 text/html ROS [...] on calcium and magnesium MATEUS HAWLEY [address] [facility] [place], [address], [facility] 04/15/2024 11:22:07 5 text/html Annual [...] CHF stable, seeing cardio MATEUS HAWLEY [address] [place], [address], [facility] 09/05/2024 16:27:27 5 text/html ROS [...] be allergies vs RAD MATEUS HAWLEY [address] [facility], [place], [address], [facility] 03/29/2025 10:15:42 OBGyn Episode No OBEpisode recorded.
--- OUTSIDE RECORDS SUMMARY | 2025-05-11 09:50 | XMS_ITS | Encounter Summary ---
Author Organization [facility] Address [address] [facility] [address] [place] [address] Phone Care Team Providers Care Non Linear Editor Name Role Phone Renzo Taylor DO Primary Care Provider [phone] Encounter Details Date Type Department Care Team (Late st Contact Info) Description 04/04/2021 Procedure Pass [address] [address] Social History Tobacco Use Types Packs/Day Years [...] on filedocumented in this encounter Care Teams Non Linear Editor Relationship Specialty Start Date End Date Renzo Taylor DO PCP - General 04/14/17 documented as of this encounter Additional Source Comments The information contained in this document represents components of the legal health record. It is not the complete legal health record.[facility]
--- OUTSIDE RECORDS SUMMARY | 2025-05-11 09:50 | XMS_ITS | Clinical Summary ---
Author Organization [facility] Address [address] [place] [address] Phone Care Team Providers Care Consumer Services Consultant Name Role Phone Renzo Taylor Primary Care Provider [phone] Allergies No known active allergies Medications influenza [...] on patient's age to complete this topic IPV VACCINES Aged Out No longer eligi ble [...] Date/Time Associated Diagnosis Comments COMPREHENSIVE METABOLIC PANEL (CMP) Routine 09/16/2023 8:39 AM EDT Routine general medical examination at a health care facility from Last 3 Months or Most Recently Relevant to Health Maintenance Results * (ABNORMAL) Comprehensive metabolic panel (09/16/2023 8:39 AM EDT) SODIUM 137 133 - 146 mmol/L [facility] POTASSIUM 5.0 3.3 - 5.1 mmol/L [facility] CHLORIDE 99 96 - 108 mmol/L [facility] CO2 27 21 - 35 mmol/L [facility] BUN 21(H) 6 - 19 mg/dL [facility] CREATININE 0.90 0.5 - 1.5 mg/dL [facility] GLUCOSE 118(H) 70 - 99 mg/dL [facility] ALBUMIN 4.6 3.9 - 4.8 g/dL [facility] TOTAL PROTEIN 7.6 6.5 - 8.0 g/dL [facility] CALCIUM 9.4 8.4 - 10.3 mg/dL [facility] ALKALINE PHOSPHATASE 105 39 - 117 U/L [facility] TOTAL BILIRUBIN 0.6 0.0 - 1.2 mg/dL [facility] AST 25 0 - 37 U/L [facility] ALT 14 0 - 40 U/L [facility] GLOBULIN 3.0 1 - 4.8 g/dL [facility] EGFR 61 >59 mL/min/1.7 3m2 [facility] Comment:Estimated glomerular filtration rate calculated using the CKD-EPI refit equation. ANION GAP 16 10 - 20 mmol/L [facility] Blood 09/16/2023 8:39 AM EDT 09/16/2023 8:42 AM EDT us Brab [facility] BLOOD BKR ORDERABLES Fi nal Result [address] [address] from Last 3 Months or Most Recently Relevant to Health Maintenance Insurance [employer] Care Teams Consumer Services Consultant Relationship Specialty Start Date End Date MichaelleRenzo espinoza DO [email or web address] PCP - General 04/14/17 Additional Source Comments The information contained in this document represents components of the legal health record. It is not the complete legal health record.[facility]
--- OUTSIDE RECORDS SUMMARY | 2025-05-11 09:50 | XMS_ITS | Encounter Summary ---
Author Organization [facility] Address [address] [place] [address] Phone Care Team Providers Care Parts Delivery Driver Name Role Phone Renzo Taylor DO Primary Care Provider [phone] Encounter Details Date Type Department Care Team (Late st Contact Info) Description 02/28/2020 Procedure Pass [address] [address] Social History Tobacco Use Types Packs/Day Years [...] on filedocumented in this encounter Care Teams Parts Delivery Driver Relationship Specialty Start Date End Date Renzo Taylor DO PCP - General 04/14/17 documented as of this encounter Additional Source Comments The information contained in this document represents components of the legal health record. It is not the complete legal health record.[facility]
--- OUTSIDE RECORDS SUMMARY | 2025-05-11 09:50 | XMS_ITS | Encounter Summary ---
Author Organization [facility] Address [address] [place] [address] Phone Care Team Providers Care Underground Utility Locator Name Role Phone Renzo Taylor DO Primary Care Provider [phone] Encounter Details Date Type Department Care Team ([facility] st Contact Info) Description 02/18/2018 Ancillary Orders Virtual Department [address] [place] [address] Renzo Taylor DO [address] [place] [address] [place] [address] [email or web address] Breast screening Social History Tobacco Use Types [...] unspecified documented in this encounter Care Teams Underground Utility Locator Relationship Specialty Start Date End Date Renzo Taylor DO PCP - General 04/14/17 documented as of this encounter Additional Source Comments The information contained in this document represents components of the legal health record. It is not the complete legal health record.[facility]
--- OUTSIDE RECORDS SUMMARY | 2025-05-11 09:50 | XMS_ITS | Encounter Summary ---
Author Organization [facility] Address [address] [place] [address] Phone Care Team Providers Care Vulcanizer Rubber Plate Name Role Phone Renzo Taylor DO Primary Care Provider [phone] Encounter Details Date Type Department Care Team ([facility] st Contact Info) Description 02/21/2021 Transcribe Orders [address] [address] Renzo Taylor DO [address] [facility] [place] [address] [email or web address] Social History Tobacco Use Types Packs/Day Years [...] on filedocumented in this encounter Care Teams Vulcanizer Rubber Plate Relationship Specialty Start Date End Date Renzo Taylor DO [email or web address] PCP - General 04/14/17 documented as of this encounter Additional Source Comments The information contained in this document represents components of the legal health record. It is not the complete legal health record.[facility]
== END 2025-05-11 09:32 | disposition home or self-care (01) ==
LOC: HO.HCS 09:03
PROVIDERS: PCP Internal Medicine; Visit Provider Internal Medicine
DX: I50.42 Chronic combined systolic (congestive) and diastolic (congestive) heart failure (principal); I44.7 Left bundle-branch block, unspecified; I10 Essential (primary) hypertension
CPT/HCPCS: 93010; 99214; G2211

== ENCOUNTER → 2025-05-11 09:02 | Outpatient (BNVA) | payer MEDICARE, SELFPAY | PROVIDERS: PCP Internal Medicine; Visit Provider Internal Medicine | DX: I50.42 Chronic combined systolic (congestive) and diastolic (congestive) heart failure (principal); I44.7 Left bundle-branch block, unspecified; I10 Essential (primary) hypertension | CPT/HCPCS: 93005; 99212 ==

== ENCOUNTER 2025-05-15 11:13 | Outpatient (REF) | payer MEDICARE, SELFPAY ==
[2025-05-15 12:43] LABS: Anion Gap 13 (12-20); Blood Urea Nitrogen 20 mg/dL (9-16); Calcium 9.2 mg/dL (8.4-10.2); Carbon Dioxide 24 mmol/L (22-29); Chloride 106 mmol/L (96-108); Estimated Glomerular Filt Rate 56; Potassium 4.3 mmol/L (3.3-5.1); Sodium 139 mmol/L (135-145)
[2025-05-15 12:54] LABS: NT Pro B Type Natriuretic Pept 537.5 pg/mL (<300)
--- OUTSIDE RECORDS SUMMARY | 2025-05-15 23:24 | XMS_ITS | Data Portability ---
Author Organization [facility] Address [address] [place] [address] Assessment No assessment recorded. Plan of Treatment Reminders Order Date Submit Date Provider Last Modified By Organization Details Last Modified Time Details Appointments ANNUAL EXAM 2025 03:30P M MATEUS HAWLEY Not available Not available Not available Lab CMP, serum or plasma 2023 024 [facility], [address] [place] [address], [id number], 08/04/2023 15:52:55 lipid panel, serum 2023 024 [facility], [address] [place] [address], [id number], 09/16/2023 13:08:23 CBC w/ auto diff 2023 024 [facility], [address] [place] [address], [address], 09/16/2023 12:33:11 hemoglobi n A1c, QN, blood 2023 024 [facility], [address] [place] [address], [address], 09/16/2023 13:44:11 TSH + free T4, serum 2023 024 [facility], [address] [place] [address], [address], 08/04/2023 15:52:55 TSH + free T4, serum 2022 023 [facility], [address] [place] [address], [address], 12/29/2022 16:30:43 thyroid peroxidas e (tpo) Ab, serum 2022 023 [facility], [address] [place] [address], [address], 12/29/2022 16:30:42 thyroglob ulin Ab, serum 2022 023 [facility], [address] [place] [address], [address], 01/07/2023 12:20:11 thyrotrop in, QN, serum or plasma 2022 023 [facility], [address] [place] [address], [address], 01/21/2023 08:31:31 ESR (erythroc yte sedimenta tion rate), blood 2022 023 [facility], [address] [place] [address], [address], 12/29/2022 16:30:43 C-reactiv e protein, qualitati ve, serum 2022 023 [facility], [address] [place] [address], [address], 12/29/2022 16:30:42 CBC w/ auto diff 2022 023 [facility], [address] [place] [address], [address], 01/06/2023 13:46:04 CMP, serum or plasma 2022 023 [facility], [address] [place] [address], [id number], 01/06/2023 14:21:31 Referral None recorded. Procedures None recorded. Surgeries None recorded. Imaging XR, chest, 2 view 2024 025 [facility] Central Scheduling, [address] [place], [address], 03/29/2025 14:34:29 US, echocardi ogram 2024 025 [email or web address] 10 [facility] Central Scheduling, [address] [place], [address], 04/04/2025 08:23:38 Medication Orders Entresto 24 mg-26 mg tablet 2022 023 [facility]/Pharmacy #5, [address] [place], [address], 12/29/2022 16:21:03 furosemid e 40 mg tablet 2022 023 [facility]Pharmacy #2024, [address] [place], [address], 12/29/2022 16:21:03 metoprolo l succinate ER 25 mg tablet,ex tended release 24 hr 2022 023 [facility] [address] [place], [address], 12/29/2022 16:21:01 Patient TargetsNo targets recorded. Patient InstructionsNo instructions recorded. Reason for Referral None Reported. Results Created Date Observation Date Name Description Value Unit Range Abnormal Flag Note LastModifiedBy Organization Detail LastModifiedTime 03/29/2003/29/2025 XR, chest , 2 view No observ ation record ed. [facility] (Medical Records) [address] [place], [address], 03/31/2025 11:14:35 04/28/20 25 04/26/2025 US, echoc ardio gram No observ ation record ed. [facility] (Medical Records) [address] [place], [address], 04/28/2025 14:02:36 Result Notes None recorded. 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 Not Available [facility] 2 14:43:35 Essential hypertens ion 25028627 Active 2022 MATEUS HAWLEY [address] [place], [address], [facility] 3 12:16:00 Congestiv e heart failure 94589892 Active 2022 MATEUS HAWLEY [address] [place], [address], [facility] 3 15:31:11 Disorder of thyroid gland 35861695 Active 2022 MATEUS HAWLEY [address] [place], [address], [facility] 3 16:21:05 Reactive lymphaden opathy 937212360 Active 2022 MATEUS HAWLEY [address] [place], [address], [facility] 3 16:22:23 Pain of bilateral hip joints 523152009592 [address] Active 2023 MATEUS HAWLEY [address] [place], [address], [facility] 4 11:16:07 Chronic cough 77882067 Active 2024 MATEUS HAWLEY [address] [place], [address], [facility] 5 10:06:48 Problem Notes None [...] Updated DateTime 4 156.85 cm 22.5 kg/m2 33556.2 7 g 70 /min 98 % 98 % 138/68 mm[Hg] Beth Singh [facility] 4 15:36:49 Date Recorded Body height Body mass index (BMI) Body weight Heart rate Oxygen saturation Oxygen saturation in Arterial blood by Pulse oximetry Systolic And Diastolic Provider Name and Address Organization Details Last Updated DateTime 5 156.85 cm 23.2 kg/m2 18463.6 4 g 77 /min 98 % 98 % 118/77 mm[Hg] Bethzuleyma Figueroamond [facility] Internal [facility] 5 15:39:51 Date Recorded Body height Body mass index (BMI) Body weight Heart rate Oxygen saturation Oxygen saturation in Arterial blood by Pulse oximetry Systolic And Diastolic Provider Name and Address Organization Details Last Updated DateTime 3 156.85 cm 22.5 kg/m2 59182.2 7 g 65 /min 98 % 98 % 122/60 mm[Hg] Beth Singh [facility] 3 16:00:11 Date Recorded Body height Body mass index (BMI) Body weight Heart rate Oxygen saturation Oxygen saturation in Arterial blood by Pulse oximetry Systolic And Diastolic Provider Name and Address Organization Details Last Updated DateTime 5 156.85 cm 23.2 kg/m2 08351.6 4 g 77 /min 97 % 97 % 130/78 mm[Hg] Beth Francisco [facility] 5 09:58:39 Date Recorded Body height Body mass index (BMI) Body weight Heart rate Oxygen saturation Oxygen saturation in Arterial blood by Pulse oximetry Systolic And Diastolic Provider Name and Address Organization Details Last Updated DateTime 4 156.85 cm 23.2 kg/m2 76276.6 4 g 77 /min 98 % 98 % 126/78 mm[Hg] Violeta Huertas [facility] 4 10:51:21 Social History Question Answer Notes LastModified by Organizat ion Details LastModified Time Tobacco Smoking Status Never Smoker Not Available [facility] 05/01/2020 03:36:23 What Was The Date Of Your Most Recent Tobacco Screening? 03/29/2025 [email or web address] Information not available 03/29/2025 Sex: Unknown Functional [...] quadrivalent, preservative 1 completed Renzo Taylor DO [address] [place] [address], [address], [facility] 05/16/2021 18:38:13 zoster, unspecified formulation 1 completed Renzo Taylor DO [address] [place] [address], [address], [facility] 05/16/2021 18:38:28 zoster recombinant 2 completed Mili winchester [facility] 07/26/2021 14:47:53 Influenza, adjuvanted, trivalent, PF 8 completed Mili winchester [facility] 04/27/2018 10:58:00 Influenza, split virus, quadrivalent, preservative 0 completed Renzo Taylor DO [address] [place] [address], [address], [facility] 06/02/2020 15:54:29 Pneumococcal conjugate PCV 13 0 completed Renzo Taylor DO [address] [place] [address], [address], [facility] 06/02/2020 15:54:45 Pneumococcal conjugate PCV 13 0 completed Renzo Taylor DO [address] [place] [address], [address], [facility] 06/02/2020 15:55:55 Past Encounters Encounter ID Performer Location Encounter Start Date Encounter Closed Date Diagnosis/Indication Diagnosis SNOMED-CT Code Diagnosis ICD10 Code Diagnosis IMO Codes Diagnosis Note [id number] Renzo Taylor DO [facility] [address] [place] [address],[place] [address] 10/22/2018 11:09:36 10/22/2018 12:04:39 Hypertensive disorder 11465082 I10 home readings are excellent exercises daily walks too is active with fam and is always reading too [id number] Renzo Taylor [facility] [address] [facility] [facility] [place] [address] 09/19/2019 13:50:36 10/03/2019 09:19:40 Hypertensive disorder 01203911 I10 home readings are excellent exercises daily walks too is active with fam and is always reading too Osteopenia 628728459 M85 .80 WILL NEED TO FOLLOW HER AND SEE THAT SHE REMAINS STABLE [place] SEEING [place] [address] [place] [id number] Renzo Taylor [facility] [address] [facility] [address] 05/28/2020 13:26:19 05/28/2020 16:09:37 Adult health examination 458728068 Z00.00 BP elevated, but lower than last visit HR elevated, pt is anxious today at exam will continue to monitor Screening for cardiovascular system disease 237543469 Z13.6 will check BP, no hx bw in system [id number] Renzo Taylor [facility] [address] [facility] [address] 05/29/2021 13:21:07 05/31/2021 14:44:26 Active or passive immunization 348834649 Z23 advised Adult heal th examination 041778592 Z00.00 BP elevated, but lower than last visit HR elevated, pt is anxious today at exam will continue to monitornum bers are good at home Hypertensive disorder 38 448064 I10 needs refill [id number] Renzo Taylor [facility] [address] [facility] [address] 07/10/2022 11:52:49 07/10/2022 12:23:17 Active or passive immunization 720834706 Z23 patient advised she is due for tdap, pneu 23 & flu shot Adult heal th examination 862654636 Z00.00 BP fine today Advance care planning 71 1648835 Z71.89 advised Essential hypertension 46296424 I10 will increase her dosage up with an additional 25 mg for her BP control so she doesn't get the highs she is talking about [id number] Renzo Taylor [facility] [address] [facility] [address] 09/17/2022 14:58:10 09/19/2022 08:50:17 Congestive heart failure 19570984 I50.21 doing really well [id number] Renzo Taylor [facility] [address] [facility] [address] 12/29/2022 15:53:45 12/29/2022 16:35:05 Congestive heart failure 87002312 I50.9 doing really well Disorder o f thyroid gland 52923366 E07.89 would like her thyroid checked Reactive lymphadenopathy 266393925 R59.1 agreed to extra lab work [id number] Renzo Taylor [facility] [address] [facility] [facility] [place] [address] 08/04/2023 15:32:34 08/05/2023 16:19:42 Congestive heart failure 83446446 I50.22 doing really wellno issues Adult [facility] th examination 084308617 Z00.00 BP fine today with first check Congestive heart failure 24770009 I50.21 doing really well [id number] Renzo Taylor [facility] [address] [facility] [address] 04/15/2024 10:35:56 04/15/2024 11:22:37 Essential hypertension 73082358 I10 will increase her dosage up with an additional 25 mg for her BP control so she doesn't get the highs she is talking about Pain of bi lateral hip joints 0543220577 5755528 M25.552 improved [id number] Renzo Taylor [facility] [address] [facility] [facility] [place] [address] 09/05/2024 15:10:12 09/05/2024 16:31:57 Adult health examination 563756185 Z00.00 BP is excellent [id number] Renzo Taylor [facility] [address] [facility] [address] 03/29/2025 09:52:47 03/29/2025 12:53:41 Depression screening 023121957 Z13.31 negative Chronic cough 93625158 R 05.3 78491 will set up with CXR and US echo Health Concerns Section Related Observation LastModified by Organization Detai ls LastModified Time None Recorded Concern Status LastModified by Organization Details LastModified Time None Recorded Advance Directives Directive None Recorded Payers Insurance Date Sequence Insurance Name Policy Number Policy Donohue Covered Member ID Donohue Member ID Guarantor Name 03/29/2025 1 [facility] - MEDICARE PREFERRED (MEDICARE REPLACEMENT HMO) [id number] Pearl Maldonado [id number] Pearl Mac Joel Notes Date Note [...] infection no other concerns today MATEUS HAWLEY [address] [place] [address], [address], [facility] 12/29/2022 16:31:36 4 text/html Annual [...] patient reports that she is doing well [id number] puts things down and forgets, but nothing concerningno behavioral changes either bowel habits normalno sleep distrubances no falls, no broken bones MATEUS HAWLEY [address] [place], [address], [facility] 08/04/2023 15:56:46 4 text/html ROS [...] on calcium and magnesium MATEUS HAWLEY [address] [facility], [place], [address], [facility] 04/15/2024 11:22:07 5 text/html Annual [...] CHF stable, seeing cardio MATEUS HAWLEY [address] [place], [address], [facility] 09/05/2024 16:27:27 5 text/html ROS [...] be allergies vs RAD MATEUS HAWLEY [address] [facility], [place], [address], [facility] 03/29/2025 10:15:42 OBGyn Episode No OBEpisode recorded.
== END 2025-05-15 11:14 | disposition home or self-care (01) ==
LOC: HO.LAB 11:13
PROVIDERS: Visit Provider Internal Medicine
DX: I50.42 Chronic combined systolic (congestive) and diastolic (congestive) heart failure (principal)
CPT/HCPCS: 36415; 80048; 83880